=== PATIENT | male | born 1945 | race Caucasian/White ===

== ENCOUNTER → 2018-05-04 12:50 | Outpatient (CLI) | payer MEDICARE, SELFPAY ==
--- NOTE | 2018-05-04 | CI_ITS ---
Cerebrovascular Exam Indications: Follow-up carotid 433.10. 780.4 Dizziness and giddiness. IMPRESSIONS 1. The bilateral vertebral arteries are patent with normal antegrade flow. 2. Study suggests 20-49% stenosis involving the right internal carotid artery. 3. Study suggests 50-69% stenosis involving the left internal carotid artery. Carotid duplex study. Complete study and Doppler flow study including spectral analysis, color and de león scale imaging. Height: Height: 172.7cm. Height: 68in. Weight: Weight: 88kg. Weight: 193.6lb. Body mass index: BMI: 29.5kg/m^2. Body surface area: BSA: 2.08m^2. Location: Vascular laboratory. Patient status: Outpatient. Tables: Arterial flow: + +--------+--------+ Location V sys V ed + +--------+--------+ Right CCA - proximal 129cm/s 16.5cm/s + +--------+--------+ Right CCA - distal 78.6cm/s 15.7cm/s + +--------+--------+ Right ECA 148cm/s 10.2cm/s + +--------+--------+ Right ICA - proximal 113cm/s 25.9cm/s + +--------+--------+ Right ICA - mid 115cm/s 29.9cm/s + +--------+--------+ Right ICA - distal 114cm/s 29.1cm/s + +--------+--------+ Right vertebral 59.7cm/s 14.1cm/s + +--------+--------+ Left CCA - proximal 130cm/s 21.2cm/s + +--------+--------+ Left CCA - distal 88cm/s 18.1cm/s + +--------+--------+ Left ECA 167cm/s 16.8cm/s + +--------+--------+ Left ICA - proximal 274cm/s 53.3cm/s + +--------+--------+ Left ICA - mid 297cm/s 71.6cm/s + +--------+--------+ Left ICA - distal 279cm/s 40.7cm/s + +--------+--------+ Left vertebral 53.3cm/s 12.2cm/s + +--------+--------+ Velocity ratios: + + + + + + Right, V sys Right, V ed Left, V sys Left, V ed + + + + + + Max ICA/dist CCA 1.46 1.9 3.38 3.96 + + + + + + (Report amended ) Electronically signed by: Tejinder Lamb [id number]
== END ==
PROVIDERS: PCP Family Medicine; Visit Provider Family Medicine
DX: R42 Dizziness and giddiness (principal)
CPT/HCPCS: 93880

== ENCOUNTER → 2018-05-28 08:08 | Outpatient (POV) | payer MEDICARE, SELFPAY | PROVIDERS: Visit Provider Specialist | DX: G56.02 Carpal tunnel syndrome, left upper limb (principal) | CPT/HCPCS: 95886; 95908 ==

== ENCOUNTER → 2018-06-02 08:21 | Outpatient (CLI) | payer MEDICARE, SELFPAY ==
[2018-06-02 08:39] LABS: Blood Urea Nitrogen 16 mg/dL (7-18); Creatinine,Serum 1.17 mg/dL (0.70-1.30); Estimated Glomerular Filt Rate 61 ml/min (>60); GFR (African American) 74 ML/MIN (>60)
--- NOTE | 2018-06-02 09:03 | MR_ITS ---
. MR head/brain wo/w con Ordering Physician: Natalie Yates MD Patient Age: 72 years: Male HISTORY: ITS.REASON: IMBALANCE Imbalance issues one month when patient stands out or is been seen down for a while he will tend to be unbalanced. TECHNIQUE: MR brain with without contrast Precontrast Multiplanar FLAIR, T1, T2 weighted images along with axial diffusion/ADC imaging performed on 1.5 T. Siemens, MRI. Postcontrast imaging [id number] ProHance T1-weighted images axial & coronal plane performed COMPARISON : FINDINGS No mass lesion. No abnormal areas of enhancement. Normal anatomy. Mild cerebral atrophy compatible with age. Cranial cervical junction normal. Sella appears satisfactory. Diffusion images reveal no focal ischemia or infarct. But there is no evidence of territorial infarct. No mass lesion or mass effect. Normal cranial cervical junction. Sella normal. Ventricles and basal cisterns normal. Today's overview survey images of the region of the region of [place] & suprasellar region unremarkable Small dot of T2 signal focus at the left central linda most compatible with a prominent perivascular space. No associated gliosis to support a small vessel deep white matter ischemic focus. Would note slight relative low-density a globus pallidus bilaterally noted and most likely is reflection of aging change although can be seen with a various conditionsIncluding such things as Parkinson's.. The visualized paranasal sinuses are clear. The mastoid air cells clear. IACs cranial nerve VII and VIII unremarkable. Cerebellum unremarkable. IMPRESSION.......................... Basically negative MR brain for age. No significant findings. No acute findings No mass lesion. Nor mass effect . No recent infarct or ischemia No territorial infarct nor significant deep white ischemic gliotic changes Subtle slight low T2 signal at the globus pallidus most likely reflecting aging changes
== END ==
PROVIDERS: Visit Provider Family Medicine
DX: R26.89 Other abnormalities of gait and mobility (principal)
CPT/HCPCS: 36415; 70553; 82565; 84520; A9576

== ENCOUNTER → 2018-10-19 15:13 | Outpatient (CLI) | payer MEDICARE, SELFPAY ==
--- NOTE | 2018-10-19 15:17 | CT_ITS ---
CT lung screening EXAM: CT LUNG LOW DOSE WO CONTRAST HISTORY: 60 pack-year smoking history, asymptomatic for lung cancer ITS.REASON: H/O NICOTINE DEPENDENCE ORDERING PHYSICIAN: Natalie Yates MD PATIENT AGE: 73 years COMPARISON: None TECHNIQUE: The exam was performed on a GE Light Speed [address] scanner using 2.90 mGy CTDI. A low dose helical CT CHEST was performed on a multi-detector scanner. All CT scans at the facility use one or more dose reduction, viz: automated exposure control, ma/kV adjustment per patient size (including targeted exams where dose is matched to indication, i.e. head), or iterative reconstruction technique. The LDCT was performed in a facility that meets the criteria for the screening program. Data regarding this exam was submitted to ACR which is an approved registry. The order for this exam indicates that it came as a result of a lung cancer screening counseling shard decision-making visit that included all the elements required of such a visit including smoking cessation. The radiologist interpreting this exam meets the CMS criteria for the LDCT lung cancer screening program. The exam is reported using the Lung-RADS classification scale and reported to the ACR registry. NOTE: This study was performed for the specific purposes of lung cancer screening and is not an alternative to diagnostic chest CT. RADIATION DOSE: CTDI vol(CT dose Index-volume) = 2.90mG DLP (Dose Length Product) = 104.46 mGcm FINDINGS: COPD There is a 5 x 5 mm noncalcified nodule in the superior segment of left lower lobe, image #28. Mild fibrotic changes present in the left lower lobe medially. A linear 7 x 5 mm opacity is present in the right lung base posteriorly. No central obstructing lesion. Prominent coronary artery calcification noted. Degenerative change thoracic spine. IMPRESSION: 1. Lung RADS Category: 3, probably benign 2. Other findings: COPD, coronary artery calcification RECOMMENDATIONS: [address] follow-up regarding the left lower lobe and right lower lobe nodules
== END ==
PROVIDERS: PCP Family Medicine; Visit Provider Family Medicine
DX: Z12.2 Encounter for screening for malignant neoplasm of respiratory organs (principal); Z87.891 Personal history of nicotine dependence

== ENCOUNTER → 2018-11-12 07:33 | Outpatient (CLI) | payer MEDICARE, SELFPAY ==
--- NOTE | 2018-11-12 07:40 | NM_ITS ---
CARDIOLITE SPECT MYOCARDIAL PERFUSION [facility], REST AND STRESS: History: Hyperlipidemia, tobacco use, coronary artery disease Procedure: Patient exercised on Timothy protocol 8 minutes, resting heart rate was 64 bpm resting blood pressure 163/76, with exercise maximum heart rate achieved was 116 bpm reportedly 80% of the maximum predicted heart rate and a blood pressure was 205/66. Test was started due to shortness of breath patient denied any complained of chest pain. Patient has good exercise capacity achieved 10.1mets of workload on treadmill, the blood pressure response to exercise was hypertensive. Patient did not achieve the target heart rate Electrocardiogram: Resting electrocardiogram showed sinus rhythm nonspecific ST-T changes, with exercise there is 1.[address] segment depression noted from the baseline EKG. The EKG portion of the exercise Myoview is positive for ischemia. Cardiac stress and resting SPECT images: Cardiac stress and resting SPECT images were obtained using technetium 99 Myoview 30.9 mCi stress and 10.5 mCi at rest. Gated SPECT further analysis of segmental wall motion and admission of the ejection fraction also done. Cardiac stress and resting SPECT images show decreased tracer activity in the anteroseptal and apical area which improves on the resting images suggestive of reversible ischemia. Computer derived ejection fraction is 62% with no regional wall motion abnormality, right ventricle is normal size and contractility. Conclusion: 1. The EKG portion of the exercise Myoview is positive for ischemia, patient has good exercise capacity achieved 10.1mets of workload on treadmill, the blood pressure response to exercise was hypertensive, there was no exercise-induced chest discomfort, test was stopped due to shortness of breath. 2. Scintigraphic evidence of mild reversible anteroseptal and apical wall. Computer derived ejection fraction is 62% with no regional wall motion abnormality, right ventricle is normal size and contractility. 3. Abnormal exercise Myoview study.
--- NOTE | 2018-11-12 10:47 | HMH.ITSHM ---
Current Home Medications as stated by this patient Eliezer Gilliam or service representative. []zetia xarelto
== END ==
PROVIDERS: PCP Family Medicine; Visit Provider Family Medicine
DX: I25.10 Atherosclerotic heart disease of native coronary artery without angina pectoris (principal); R93.1 Abnormal findings on diagnostic imaging of heart and coronary circulation
CPT/HCPCS: 78452; 93017; A9502

== ENCOUNTER 2018-11-19 12:07 | Observation (INO) ==
--- NOTE | 2018-11-19 12:19 | Emergency Department Note ---
ED Disposition Clinical Impression: Rapid atrial fibrillation, Abnormal stress ECG Disposition: Admitted as Observation Condition on Discharge: Fair - Critical Care Critical Care Time: Yes Attestation: On , the high probability of a clinically significant, sudden or life threatening deterioration of the following system(s) required my full and direct attention, intervention and personal management. The time I documented below is in addition to time spent performing reported procedures but includes the following listed in this critical care notation. Total Critical Care Time: 30 Vital system(s) involved:: Circulatory Failure My critical care processes included: Assessment & monitoring of V/S, Initial and Re-exams, Data Review/Interpretation, Coordinating Care, Medication Orders and management, Documentation Medical Decision Making - Zi Inquiry Pt receiving controlled substance: No Vital Signs: 11/19/18 12:14 11/19/18 12:39 11/19/18 13:11 Temperature 97.9 F Temperature Source Oral Pulse Rate [Apical] 140 H 148 H 142 H Pulse Rate [Right Brachial] 151 H Respiratory Rate 20 18 18 Blood Pressure [Right Arm] 94/64 L 93/61 L 113/72 Blood Pressure Mean [Right Arm] 74 71 85 Blood Pressure Source [Right Arm] Manual Cuff/ Auscultation Automatic Cuff Automatic Cuff Blood Pressure Position [Right Arm] Sitting Sitting Sitting 02 Sat by Pulse Oximetry 93 L 95 93 L Oxygen Delivery Method Room Air Room Air Room Air 11/19/18 13:30 Temperature Temperature Source Pulse Rate [Apical] Pulse Rate [Right Brachial] 118 H Respiratory Rate Blood Pressure [Right Arm] 103/56 L Blood Pressure Mean [Right Arm] 71 Blood Pressure Source [Right Arm] Blood Pressure Position [Right Arm] 02 Sat by Pulse Oximetry 94 L Oxygen Delivery Method - Lab Data Lab Results 11/19/18 12:15: WBC 11.3 H, RBC 4.90, Hgb 14.4, Hct 45.4, MCV 92.6, MCH 29.3, MCHC 31.6 L, RDW 12.8, Plt Count 295, MPV 7.6, Neut % (Auto) 73.0, Lymph % (Auto) 18.7, [place] % (Auto) 7.2, Eos % (Auto) 0.6, Baso % (Auto) 0.4, Neut # (Auto) 8.3 H, Lymph # (Auto) 2.1, [place] # (Auto) 0.8, Eos # (Auto) 0.1, Baso # (Auto) 0.0 11/19/18 12:15: Sodium 139, Potassium 4.1, Chloride 105, Carbon Dioxide 28, Anion Gap 10.1, BUN 16, Creatinine 1.72 H, Estimated Creat Clear 44, Estimated GFR 39 L, Est GFR ( Amer) 47 L, Glucose 100, Calcium 9.1, Troponin I < 0.02 Result diagrams: 11/19/18 12:15 11/19/18 12:15 Orders (Tests/Meds): ED MEDICATIONS Generic Name Dose Route Start Last Admin Trade Name Freq PRN Reason Stop Dose Admin Diphenhydramine HCl 50 mg 11/19/18 13:56 Benadryl 50mg/1ml Vial IV 11/19/18 13:57 ONCE ONE Fentanyl Citrate 25 mcg 11/19/18 13:56 Fentanyl 250mcg/5ml Vial IV 11/20/18 13:23 Q3MINP PRN Moderate to Severe Pain Fentanyl Citrate 50 mcg 11/19/18 13:56 Fentanyl 250mcg/5ml Vial IV 11/20/18 13:23 Q3MINP PRN Moderate to Severe Pain Fentanyl Citrate 25 mcg 11/19/18 13:56 Fentanyl 100mcg/2ml Vial IV 11/20/18 13:42 Q3MINP PRN Moderate to Severe Pain Fentanyl Citrate 50 mcg 11/19/18 13:56 Fentanyl 100mcg/2ml Vial IV 11/20/18 13:42 Q3MINP PRN Moderate to Severe Pain Flumazenil 0.2 mg 11/19/18 13:56 Romazicon 0.1mg/Ml 5ml Vial IV 11/19/18 23:00 NEEDED PRN Sedation Heparin Sodium (Porcine) 10,000 unit 11/19/18 13:56 Heparin 1,000 Units/Ml 10ml Vial (Hot Stick Worker) IV 11/19/18 17:42 NEEDED PRN Emergency Box Registered Nurse Maternity Heparin Sodium/Sodium Chloride 3,000 unit 11/19/18 13:56 Heparin 1000 Units/500ml Ns (Hot Stick Worker) IV 11/19/18 13:57 ONCE ONE Sodium Chloride 1,000 mls @ 25 mls/hr 11/19/18 13:56 Sod Chlor 0.9% 1000ml Bag IV 11/20/18 13:42 .Q25H YANETH Diltiazem HCl 100 mg/ Sodium 100 mls @ 5 mls/hr 11/19/18 13:56 Chloride IV 12/19/18 12:59 .Q20H [facility] Protocol Lidocaine HCl 20 ml 11/19/18 13:56 Lidocaine 1% 20ml Mdv IJ 11/19/18 13:57 ONCE ONE Midazolam HCl 1 mg 11/19/18 13:56 Midazolam 2mg/2ml Vial IV 11/20/18 13:23 Q3MINP PRN Sedation Midazolam HCl 1 mg 11/19/18 13:56 Midazolam 1mg/Ml 5ml Vial IV 11/20/18 13:23 Q3MINP PRN Sedation Naloxone HCl 0.4 mg 11/19/18 13:56 Narcan 0.4mg/Ml Vial IV 11/20/18 13:23 Q5MINP PRN Decreased Respirations Nitroglycerin 800 mcg 11/19/18 13:56 Nitroglycerin 800mcg/8ml Syr (Hot Stick Worker) IV 11/20/18 13:42 NEEDED PRN Emergency Box Registered Nurse Maternity Sodium Chloride 10 ml 11/19/18 13:56 Saline Flush 10ml Syringe IV 12/19/18 13:41 NEEDED PRN Maintain IV Site Verapamil HCl 2.5 mg 11/19/18 13:56 Verapamil 2.5mg/Ml 2ml Vial IV 11/19/18 13:57 ONCE ONE Discontinued Medications Generic Name Dose Route Start Last Admin Trade Name Freq PRN Reason Stop Dose Admin Diphenhydramine HCl 50 mg 11/19/18 13:42 Benadryl 50mg/1ml Vial IV 11/19/18 13:43 ONCE ONE Fentanyl Citrate 25 mcg 11/19/18 13:23 Fentanyl 250mcg/5ml Vial IV 11/20/18 13:23 Q3MINP PRN Moderate to Severe Pain Fentanyl Citrate 50 mcg 11/19/18 13:23 Fentanyl 250mcg/5ml Vial IV 11/20/18 13:23 Q3MINP PRN Moderate to Severe Pain Fentanyl Citrate 50 mcg 11/19/18 13:42 Fentanyl 100mcg/2ml Vial IV 11/20/18 13:42 Q3MINP PRN Moderate to Severe Pain Fentanyl Citrate 25 mcg 11/19/18 13:42 Fentanyl 100mcg/2ml Vial IV 11/20/18 13:42 Q3MINP PRN Moderate to Severe Pain Flumazenil 0.2 mg 11/19/18 13:23 Romazicon 0.1mg/Ml 5ml Vial IV 11/19/18 23:00 NEEDED PRN Sedation Heparin Sodium (Porcine) 10,000 unit 11/19/18 13:42 Heparin 1,000 Units/Ml 10ml Vial (Hot Stick Worker) IV 11/19/18 17:42 NEEDED PRN Emergency Box Registered Nurse Maternity Heparin Sodium/Sodium Chloride 3,000 unit 11/19/18 13:42 Heparin 1000 Units/500ml Ns (Hot Stick Worker) IV 11/19/18 13:43 ONCE ONE Sodium Chloride 1,000 mls @ 999 mls/hr 11/19/18 13:00 11/19/18 12:18 Sod Chlor 0.9% 1000ml Bag IV 11/19/18 14:00 999 mls/hr .Q1H1M YANETH Administration Diltiazem HCl 100 mg/ Sodium 100 mls @ 5 mls/hr 11/19/18 13:00 11/19/18 13:00 Chloride IV 12/19/18 12:59 5 mls/hr .Q20H YANETH Administration Protocol Sodium Chloride 1,000 mls @ 25 mls/hr 11/19/18 13:45 Sod Chlor 0.9% 1000ml Bag IV 11/20/18 13:42 .Q25H YANETH Lidocaine HCl 20 ml 11/19/18 13:42 Lidocaine 1% 20ml Mdv IJ 11/19/18 13:43 ONCE ONE Midazolam HCl 1 mg 11/19/18 13:23 Midazolam 2mg/2ml Vial IV 11/20/18 13:23 Q3MINP PRN Sedation Midazolam HCl 1 mg 11/19/18 13:23 Midazolam 1mg/Ml 5ml Vial IV 11/20/18 13:23 Q3MINP PRN Sedation Naloxone HCl 0.4 mg 11/19/18 13:23 Narcan 0.4mg/Ml Vial IV 11/20/18 13:23 Q5MINP PRN Decreased Respirations Nitroglycerin 800 mcg 11/19/18 13:42 Nitroglycerin 800mcg/8ml Syr (Hot Stick Worker) IV 11/20/18 13:42 NEEDED PRN Emergency Box Registered Nurse Maternity Sodium Chloride 1,000 ml 11/19/18 12:50 11/19/18 13:00 Sod Chlor 0.9% 1000ml Bag IV 11/19/18 12:51 1,000 ml BOLUS ONE Administration Sodium Chloride 10 ml 11/19/18 13:42 Saline Flush 10ml Syringe IV 12/19/18 13:41 NEEDED PRN Maintain IV Site Verapamil HCl 2.5 mg 11/19/18 13:42 Verapamil 2.5mg/Ml 2ml Vial IV 11/19/18 13:43 ONCE ONE ORDERS Category Date Time Status Thyroid Panel Stat Lab 11/19/18 12:15 Received - Radiology Data #1 Image(s): Chest Image Reviewed: Yes I have reviewed radiologist's interpretation IMPRESSION: Possible infiltrate in the right infrahilar region with COPD Dictated By: Tejinder Lamb MD Signed By: <Electronically signed by Tejinder Lamb MD in [place]> 11/19/18 1300 - ECG Data Tracing #1 EKG interpreted by Alvino Roblero MD: Rhythm: Atrial fibrillation with rapid ventricular response Rate: 139 [place]: normal Ectopy: none Conduction: normal ST Segment Changes: Nonspecific T Wave Changes: none Q Waves: none Poor R wave progression - Physician Consults Physician Consulted: ADRIANA Delong, for Dr. Duke Time: 12:51 Reason -: Cardiology Eval/Care Comment/Response: Patient's blood pressure currently 96 systolic after 1 L. Recommends second liter of saline, Cardizem drip without a bolus. Additional Consult: [place] Time: 13:25 Reason -: Admission Comment/Response: Agrees to admit the patient to the hospital. We discussed the patient's clinical information, including history, exam, laboratory and radiology results and ED course. Per hospital procedure, I will write temporary bridge inpatient orders on the patient. Specific orders requested by the admitting physician: Per cardiology Medical Decision Narrative: Seen by Ashwin and Dr. Bailey in the emergency department. The patient will have a heart cath today and they recommend admission overnight. Dr. Yates contacted. Prior Stress: Conclusion: 1. The EKG portion of the exercise Myoview is positive for ischemia, patient has good exercise capacity achieved 10.1mets of workload on treadmill, the blood pressure response to exercise was hypertensive, there was no exercise-induced chest discomfort, test was stopped due to shortness of breath. 2. Scintigraphic evidence of mild reversible anteroseptal and apical wall. Computer derived ejection fraction is 62% with no regional wall motion abnormality, right ventricle is normal size and contractility. 3. Abnormal exercise Myoview study. Dictated By: Marek Bailey MD Signed By: <Electronically signed by Marek Bailey MD in [place]> 11/12/[address] chest: IMPRESSION: 1. Lung RADS Category: 3, probably benign 2. 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 aBiley for an abnormal stress test. He was found to be in rapid atrial fibrillation with low blood pressure and was sent to the emergency department. He says that today he feels lightheaded, a little short of breath, but otherwise feels good. No chest pain, palpitations, syncope, nausea, diaphoresis. He says that he had a stress test performed because a CAT scan of the lungs showed some coronary artery calcification. He was not having any symptoms. He does not have a history of atrial fibrillation or any other cardiac disease. He does have hyperlipidemia. He is a non-smoker. No history of thyroid disorder. Nondrinker. - Related Data Home Medications Medication Instructions Recorded Confirmed ezetimibe 10 mg tablet 10 mg PO DAILY 11/09/18 11/19/18 simvastatin 10 mg tablet 10 mg PO QHS 11/09/18 11/19/18 cholecalciferol (vitamin D3) 1,000 1,000 unit PO DAILY 11/19/18 11/19/18 unit capsule vitamin B complex tablet 1 tab PO DAILY 11/19/18 11/19/18 Allergies Allergy/AdvReac Type Severity Reaction Status Date / Time No Known Allergies Allergy Verified 11/19/18 11:49 [facility] History - Hepatitis A Screen Attestation statement:: This patient has been screened for Hepatitis A risk factors. I have reviewed the patient's past medical history: Yes Medical History: Reports:: Hiatal Hernia, Hyperlipidemia, Hypertension Other Surgeries: Yes: Cholecystectomy, Hernia Repair - Social History Smoking Status: Current every day smoker Tobacco Type: cigarettes # Packs/Day (cigarettes): 1 #Yrs smoked (if former smoker): 60 Alcohol Intake: current Alcohol Intake Frequency:: holidays/special occasions only Substance Use Type: denies use Occupational Status: retired Family Hx:: Coronary Artery Disease Comment: [id number]-CHF@83 ROS Obtained: Yes All systems reviewed & no additional complaints - Constitutional Constitutional: Denies fever(s) - Cardiovascular Cardiovascular: Denies chest pain, Denies diaphoresis, Denies palpitations - Respiratory Respiratory: Yes dyspnea - Gastrointestinal Gastrointestingal: Denies: abdominal pain, nausea, vomiting Physical Exam - General General appearance: alert, in no apparent distress - Head Head exam: atraumatic, normocephalic - Eye Eye exam: Present: normal appearance, PERRL, EOMI - ENT ENT exam: Present: mucous membranes moist - Neck Neck exam: Present: normal inspection, trachea midline - Chest Chest inspection: Present: normal inspection, symmetric chest wall rise - Respiratory Respiratory exam: Present: normal lung sounds bilaterally. Absent: respiratory distress - Cardiovascular Cardiovascular exam: Present: tachycardia, irregular rhythm, normal heart sounds - Abdominal Exam Abdominal exam: Present: soft, normal bowel sounds. Absent: distention, tenderness, guarding, rebound, rigidity - Extremities Exam Extremities exam: Present: normal inspection, full ROM - Neurological Exam Neurological exam: Present: alert, oriented X3 - Psychiatric Psychiatric exam: Present: normal affect, normal mood - Skin Skin exam: Present: warm, dry
[2018-11-19 12:31] LABS: Basophils % 0.4 % (0.1-2.0); Eosinophils # 0.1 K/mm3 (0.0-0.4); Eosinophils % 0.6 % (0.1-12.0); Hematocrit 45.4 % (42.0-52.0); Hemoglobin 14.4 g/dL (14.1-18.0); Lymphocytes # 2.1 K/mm3 (0.7-4.5); Lymphocytes % 18.7 % (10-50); Mean Corpuscular HGB Conc 31.6 g/dL (31.8-35.4); Mean Corpuscular Volume 92.6 fl (80-94); Mean Platelet Volume 7.6 fl (7.4-10.4); Monocytes # 0.8 K/mm3 (0.1-1.0); Monocytes % 7.2 % (1.7-9.3); Neutrophils # 8.3 K/mm3 (1.8-7.8); Platelet Count 295 K/mm3 (142-424); Red Cell Distribution Width 12.8 % (11.5-17.5); White Blood Count 11.3 K/mm3 (4.8-10.8)
[2018-11-19 12:42] LABS: Anion Gap 10.1 mEq/L (5-15); Blood Urea Nitrogen 16 mg/dL (7-18); Calcium 9.1 mg/dL (8.5-10.1); Carbon Dioxide 28 mmol/L (21.0-32.0); Chloride 105 mmol/L (98-107); Glucose 100 mg/dL (74-106); Sodium 139 mmol/L (136-145)
--- NOTE | 2018-11-19 13:24 | Consult Report ---
History of Present Illness Consult date: 11/19/18 Requesting physician: Natalie Yates Consult reason: atrial fibrillation, hypotension Chief complaint: light headed, SOA Additional Medical History:: 1. Tobacco use, 1 pack/day for 60+ years A. CT of the lungs, 10/2018, 1. Lung RADS Category: 3, probably benign 2. Other findings: COPD, coronary artery calcification 2. Carotid artery disease A. Carotid duplex,04/2018. 1. The bilateral vertebral arteries are patent with normal antegrade flow. 2. Study suggests 20-49% stenosis involving the right internal carotid artery. 3. Study suggests 50-69% stenosis involving the left internal carotid artery 3. Suspected coronary artery disease due to coronary artery calcification on CT of the lungs 10/2018 A. Exercise Myoview 11/2018,1. The EKG portion of the exercise Myoview is positive for ischemia, patient has good exercise capacity achieved 10.1mets of workload on treadmill, the blood pressure response to exercise was hypertensive, there was no exercise-induced chest discomfort, test was stopped due to shortness of breath. 2. Scintigraphic evidence of mild reversible anteroseptal and apical wall. Computer derived ejection fraction is 62% with no regional wall motion abnormality, right ventricle is normal size and contractility. 3. Abnormal exercise Myoview study History of present illness: 73-year-old white male with significant history of tobacco use of greater than 60 pack years with recent evaluation including CT of the lungs showed coronary artery calcification which prompted exercise Myoview stress testing. Results of which were abnormal showing anteroseptal and apical wall ischemia for which the patient was referred to cardiology for further evaluation. Patient was in the office today when an EKG revealed rapid atrial fibrillation accompanied by the patient's lightheadedness with associated systolic blood pressure of 90 mmHg. He was subsequently sent to the emergency department for further treatment. In the ER the patient was started on some IV fluids with gradual improvement in his systolic blood pressure and mild improvement in his heart rate. Patient denied any chest pain, pressure or tightness. Cardizem drip has been started at 5 mg/h which the patient is tolerating at this time. Initial troponin is normal. EKG in the office and in the ER shows evidence of anterolateral ST segment depression. The patient is not on digoxin and denies any history of heart disease previously. He denies a history of diabetes or hypertension. He does take Zetia and a statin for history of hyperlipidemia. [facility] History Medical History: Reports:: Hiatal Hernia, Hyperlipidemia, Hypertension *Have you ever received a pneumonia vaccine?: No *Have you received a flu vaccine this season?: No Other Surgeries: Yes: Cholecystectomy, Hernia Repair - *Social History Smoking Status: Current every day smoker Tobacco Type: cigarettes # Packs/Day (cigarettes): 1 #Yrs smoked (if former smoker): 60 Alcohol Intake: current Alcohol Intake Frequency:: holidays/special occasions only Substance Use Type: denies use *Occupational Status:: retired *Travel in the last 8 weeks: None - Psychiatric History Expresses thoughts of harming self/others: None Suicide Plan Description: No Plan Family Hx:: Coronary Artery Disease Meds Home Medications Medication Instructions Recorded Confirmed Type ezetimibe 10 mg tablet 10 mg PO DAILY 11/09/18 11/19/18 History simvastatin 10 mg tablet 10 mg PO QHS 11/09/18 11/19/18 History cholecalciferol (vitamin D3) 1,000 1,000 unit PO DAILY 11/19/18 11/19/18 History unit capsule vitamin B complex tablet 1 tab PO DAILY 11/19/18 11/19/18 History Allergies Allergy/AdvReac Type Severity Reaction Status Date / Time No Known Allergies Allergy Verified 11/19/18 11:49 Review of Systems - *Cardiovascular Reports shortness of breath with activity, Reports lightheadedness, Denies chest pain - *Respiratory Reports cough - *Gastrointestinal Denies abdominal pain, Denies nausea, Denies vomiting - *Genitourinary Denies blood in urine - *Musculoskeletal Denies joint pain, Denies back pain - *Neurologic Reports dizziness Exam Vital signs and Labs for Last 24 Hours: Temp Pulse Resp BP Pulse Ox 97.9 F 142 H 18 113/72 93 L 11/19/18 12:14 11/19/18 13:11 11/19/18 13:11 11/19/18 13:11 11/19/18 13:11 Laboratory Results - last 24 hr 11/19/18 12:15: WBC 11.3 H, RBC 4.90, Hgb 14.4, Hct 45.4, MCV 92.6, MCH 29.3, MCHC 31.6 L, RDW 12.8, Plt Count 295, MPV 7.6, Neut % (Auto) 73.0, Lymph % (Auto) 18.7, [place] % (Auto) 7.2, Eos % (Auto) 0.6, Baso % (Auto) 0.4, Neut # (Auto) 8.3 H, Lymph # (Auto) 2.1, [place] # (Auto) 0.8, Eos # (Auto) 0.1, Baso # (Auto) 0.0 11/19/18 12:15: Sodium 139, Potassium 4.1, Chloride 105, Carbon Dioxide 28, Anion Gap 10.1, BUN 16, Creatinine 1.72 H, Estimated Creat Clear 44, Estimated GFR 39 L, Est GFR ( Amer) 47 L, Glucose 100, Calcium 9.1, Troponin I < 0.02 I & O for Last 24 hours: Intake & Output 11/17/18 11/18/18 11/19/18 11/20/18 11:59 11:59 11:59 11:59 Weight 186 lb - *Routine HEENT Exam Head: Present: normocephalic Eye: Present: EOMI, PERRL ENT: Present: mucous membranes moist - *Routine Neck Exam Present: supple. Absent: JVD, carotid bruit - *Routine Respiratory Exam Present: rhonchi. Absent: accessory muscle use, rales, wheezes - *Routine Cardiovascular Exam Present: tachycardia, irregularly irregular. Absent: murmur, gallop, rubs - *Routine Abdominal Exam Present: soft. Absent: tenderness, distended, guarding - *Routine Extremities Exam Absent: edema, calf tenderness - *Routine Neurological Exam Present: alert, oriented X3, moving all extremities Assessment and Plan (1) Atrial fibrillation, new onset Current visit: Yes Status: Acute Category: Medical Code(s): I48.91 - Unspecified atrial fibrillation (2) Tachycardia with heart rate 141-160 beats per minute Current visit: Yes Status: Acute Category: Medical Code(s): R00.0 - Tachycardia, unspecified (3) Hypotension Current visit: Yes Status: Acute Category: Medical Code(s): I95.9 - Hypotension, unspecified (4) Hyperlipidemia Current visit: Yes Status: Acute Category: Medical Code(s): E78.5 - Hyperlipidemia, unspecified (5) Cardiovascular stress test abnormal Current visit: Yes Status: Acute Category: Medical Code(s): R94.39 - Abnormal result of other cardiovascular function study (6) Coronary artery calcification seen on CAT scan Current visit: Yes Status: Acute Category: Medical Code(s): I25.10 - Atherosclerotic heart disease of [place] coronary artery without angina pectoris (7) Tobacco use Current visit: Yes Status: Acute Category: Medical Code(s): Z72.0 - Tobacco use (8) Abnormal EKG Current visit: Yes Status: Acute Category: Medical Code(s): R94.31 - Abnormal electrocardiogram [ECG] [EKG] - Assessment and plan all Dx Assessment and Plan for all problems:: 1. In light of the patient's abnormal stress test, abnormal EKG and significant coronary artery calcification seen on recent CT of the chest, would recommend proceeding with left heart catheterization today. Risks, benefits and procedure explained to the patient and he agrees to proceed. 2. With new diagnosis of atrial fibrillation, patient will need anticoagulation therapy after cardiac catheterization performed. 3. We will obtain an echocardiogram once heart rate is sustained below 100 bpm 4. Further recommendations to follow
[2018-11-19 13:41] LABS: Thyroid Stimulating Hormone 1.86 uIU/ml (0.358-3.740)
[2018-11-19 14:05] LABS: Free Thyroxine Index 2.9 ug/dL (5.93-13.13)
--- NOTE | 2018-11-19 14:32 | History & Physical Report ---
*Admission Date: 11/19/18 *Chief complaint: light headed, SOA *History of present illness: Mr. Gilliam is a 73-year-old white male with significant history of tobacco use of greater than 60 pack years with recent evaluation including CT of the lungs showing coronary artery calcification which prompted exercise Myoview stress testing. The results of this were abnormal showing anteroseptal and apical wall ischemia for which the patient was referred to cardiology for further evaluation. The patient was in the office today when an EKG revealed rapid atrial fibrillation accompanied by the patient's lightheadedness with associated systolic blood pressure of 90 mmHg. He was subsequently sent to the emergency department for further treatment. In the ER the patient was started on some IV fluids with gradual improvement in his systolic blood pressure and mild improvement in his heart rate. Patient denied any chest pain, pressure or tightness. Cardizem drip has been started at 5 mg/h which the patient is tolerating at this time. Initial troponin is normal. EKG in the office and in the ER shows evidence of anterolateral ST segment depression. The patient is not on digoxin and denies any history of heart disease previously. He denies a history of diabetes or hypertension. He does take Zetia and a statin for history of hyperlipidemia. The above as per Ashwin Chand (cardiology). Of note, he used to take an ASA and lisinopril but this was stopped by Dr. Katz d/t low BP. [facility] History I have reviewed the patient's past medical history: Yes Medical History: Reports:: Chronic Obstructive Pulmonary Disease (COPD), Gall Bladder Disease, Hiatal Hernia, Hyperlipidemia, Hypertension *Have you ever received a pneumonia vaccine?: No *Have you received a flu vaccine this season?: No Laterality Cases: Right: Arthroscopy Shoulder, Bilateral: Cataract Other Surgeries: Yes: Cholecystectomy, Colonoscopy, Hernia Repair - *Social History Smoking Status: Current every day smoker Tobacco Type: cigarettes # Packs/Day (cigarettes): 1 #Yrs smoked (if former smoker): 60 Alcohol Intake: current Alcohol Intake Frequency:: holidays/special occasions only Substance Use Type: denies use *Occupational Status:: retired *Travel in the last 8 weeks: None - Psychiatric History Expresses thoughts of harming self/others: None Suicide Plan Description: No Plan Family Hx:: Cancer, Coronary Artery Disease, Stroke Review of Systems - Constitutional Denies chills, Denies fever(s), Denies weakness - Eyes Denies blurry vision, Denies double vision - ENT Denies nasal congestion, Denies sore throat - *Cardiovascular Denies chest pain, Denies rapid, pounding, or irregular heartbeat - *Respiratory Reports cough (slight nonproductive), Denies shortness of breath - *Gastrointestinal Denies abdominal pain, Denies loose stools, Denies nausea, Denies vomiting - *Genitourinary Denies difficulty urinating, Denies painful urination - *Musculoskeletal Denies joint pain - *Neurologic Reports dizziness, Denies headache(s) Meds Home Medications Medication Instructions Recorded Confirmed Type ezetimibe 10 mg tablet 10 mg PO DAILY 11/09/18 11/19/18 History simvastatin 10 mg tablet 10 mg PO QHS 11/09/18 11/19/18 History cholecalciferol (vitamin D3) 1,000 1,000 unit PO DAILY 11/19/18 11/19/18 History unit capsule vitamin B complex tablet 1 tab PO DAILY 11/19/18 11/19/18 History Allergies Allergy/AdvReac Type Severity Reaction Status Date / Time No Known Allergies Allergy Verified 11/19/18 11:49 Exam Vital signs and Labs for Last 24 Hours: Temp Pulse Resp BP Pulse Ox 97.9 F 118 H 18 103/56 L 94 L 11/19/18 12:14 11/19/18 13:30 11/19/18 13:11 11/19/18 13:30 11/19/18 13:30 Laboratory Results - last 24 hr 11/19/18 12:15: WBC 11.3 H, RBC 4.90, Hgb 14.4, Hct 45.4, MCV 92.6, MCH 29.3, MCHC 31.6 L, RDW 12.8, Plt Count 295, MPV 7.6, Neut % (Auto) 73.0, Lymph % (Auto) 18.7, [place] % (Auto) 7.2, Eos % (Auto) 0.6, Baso % (Auto) 0.4, Neut # (Auto) 8.3 H, Lymph # (Auto) 2.1, [place] # (Auto) 0.8, Eos # (Auto) 0.1, Baso # (Auto) 0.0 11/19/18 12:15: Sodium 139, Potassium 4.1, Chloride 105, Carbon Dioxide 28, Anion Gap 10.1, BUN 16, Creatinine 1.72 H, Estimated Creat Clear 44, Estimated GFR 39 L, Est GFR ( Amer) 47 L, Glucose 100, Calcium 9.1, Troponin I < 0.02 I & O for Last 24 hours: Intake & Output 11/17/18 11/18/18 11/19/18 11/20/18 11:59 11:59 11:59 11:59 Weight 186 lb - Constitutional no acute distress - *Routine HEENT Exam Head: Present: normocephalic Eye: Present: EOMI, PERRL ENT: Present: mucous membranes dry - *Routine Neck Exam Present: supple. Absent: lymphadenopathy - *Routine Respiratory Exam Present: CTA bilaterally - *Routine Cardiovascular Exam Present: irregularly irregular (rate 90-120 bpm) - *Routine Abdominal Exam Present: soft, normoactive bowel sounds. Absent: tenderness - *Routine Extremities Exam Absent: cyanosis, clubbing, edema - *Routine Skin Exam Present: warm. Absent: rash - *Routine Neurological Exam Present: alert, oriented X3 H&P: Result - Impressions CXR - Possible infiltrate in the right infrahilar region with COPD Assessment and Plan (1) Atrial fibrillation, new onset Current visit: Yes Status: Acute Category: Medical Code(s): I48.91 - Unspecified atrial fibrillation (2) Tachycardia with heart rate 141-160 beats per minute Current visit: Yes Status: Acute Category: Medical Code(s): R00.0 - Tachycardia, unspecified (3) Hypotension Current visit: Yes Status: Acute Category: Medical Code(s): I95.9 - Hypotension, unspecified (4) Hyperlipidemia Current visit: Yes Status: Acute Category: Medical Code(s): E78.5 - Hyperlipidemia, unspecified (5) Cardiovascular stress test abnormal Current visit: Yes Status: Acute Category: Medical Code(s): R94.39 - Abnormal result of other cardiovascular function study (6) Coronary artery calcification seen on CAT scan Current visit: Yes Status: Acute Category: Medical Code(s): I25.10 - Atherosclerotic heart disease of [place] coronary artery without angina pectoris (7) Tobacco use Current visit: Yes Status: Acute Category: Medical Code(s): Z72.0 - Tobacco use (8) Abnormal EKG Current visit: Yes Status: Acute Category: Medical Code(s): R94.31 - Abnormal electrocardiogram [ECG] [EKG] (9) Renal insufficiency Current visit: Yes Status: Acute Category: Medical Code(s): N28.9 - Disorder of kidney and ureter, unspecified (10) Leukocytosis Current visit: Yes Status: Acute Category: Medical Code(s): D72.829 - Elevated white blood cell count, unspecified - Assessment and plan all Dx Assessment and Plan for all problems:: Patient has been started on a cardizem drip and his HR has improved. He is going to have a heart cath today. CXR shows a possible pneumonia and his WBC was slightly elevated, although he has no symptoms of pneumonia. Will discuss further care with Dr. Yates.
--- NOTE | 2018-11-19 18:37 | Progress Note ---
Internal Medicine - PN: Subj *Date: 11/19/18 *Time: 18:34 Interval history: He is somewhat groggy post procedure but otherwise cogent. He is in no pain. He states that his cough and congestion had been progressive over the past several days. He had a cough productive of whitish sputum. With this history and the chest x-ray and rales on exam he warrants antibiotic treatment. Exam Vital signs and Labs for Last 24 Hours: Temp Pulse Resp BP Pulse Ox 98 F 67 16 125/68 95 11/19/18 16:40 11/19/18 16:45 11/19/18 16:40 11/19/18 16:45 11/19/18 16:45 Laboratory Results - last 24 hr 11/19/18 12:15: WBC 11.3 H, RBC 4.90, Hgb 14.4, Hct 45.4, MCV 92.6, MCH 29.3, MCHC 31.6 L, RDW 12.8, Plt Count 295, MPV 7.6, Neut % (Auto) 73.0, Lymph % (Auto) 18.7, [place] % (Auto) 7.2, Eos % (Auto) 0.6, Baso % (Auto) 0.4, Neut # (Auto) 8.3 H, Lymph # (Auto) 2.1, [place] # (Auto) 0.8, Eos # (Auto) 0.1, Baso # (Auto) 0.0 11/19/18 12:15: Sodium 139, Potassium 4.1, Chloride 105, Carbon Dioxide 28, Anion Gap 10.1, BUN 16, Creatinine 1.72 H, Estimated Creat Clear 44, Estimated GFR 39 L, Est GFR ( Amer) 47 L, Glucose 100, Calcium 9.1, Troponin I < 0.02 11/19/18 12:15: TSH 1.86, Free T4 Index 2.9 L, Thyroxine (T4) 9.1, T3 Uptake 32 11/19/18 16:22: Activated Clotting Time 337 H* I & O for Last 24 hours: Intake & Output 11/17/18 11/18/18 11/19/18 11/20/18 11:59 11:59 11:59 11:59 Intake Total 2360 / 2360 Balance 2360 / 2360 Weight 190 lb 2 oz - Constitutional no acute distress - *Routine HEENT Exam Head: Present: normocephalic Eye: Present: PERRL - *Routine Respiratory Exam Present: rales (Bibasilar but more prominent on the right than the left.) - *Routine Cardiovascular Exam Present: irregular rhythm - *Routine Abdominal Exam Present: soft. Absent: tenderness - *Routine Extremities Exam Absent: edema Assessment and Plan (1) Atrial fibrillation, new onset Current visit: Yes Status: Acute Category: Medical Code(s): I48.91 - Unspecified atrial fibrillation (2) Tachycardia with heart rate 141-160 beats per minute Current visit: Yes Status: Acute Category: Medical Code(s): R00.0 - Tachycardia, unspecified (3) Hypotension Current visit: Yes Status: Acute Category: Medical Code(s): I95.9 - Hypotension, unspecified (4) Hyperlipidemia Current visit: Yes Status: Acute Category: Medical Code(s): E78.5 - Hyperlipidemia, unspecified (5) Cardiovascular stress test abnormal Current visit: Yes Status: Acute Category: Medical Code(s): R94.39 - Abnormal result of other cardiovascular function study (6) Coronary artery calcification seen on CAT scan Current visit: Yes Status: Acute Category: Medical Code(s): I25.10 - Atherosclerotic heart disease of [place] coronary artery without angina pectoris (7) Tobacco use Current visit: Yes Status: Acute Category: Medical Code(s): Z72.0 - Tobacco use (8) Abnormal EKG Current visit: Yes Status: Acute Category: Medical Code(s): R94.31 - Abnormal electrocardiogram [ECG] [EKG] (9) Renal insufficiency Current visit: Yes Status: Acute Category: Medical Code(s): N28.9 - Disorder of kidney and ureter, unspecified (10) Leukocytosis Current visit: Yes Status: Acute Category: Medical Code(s): D72.829 - Elevated white blood cell count, unspecified (11) Pneumonia involving right lung Current visit: Yes Status: Acute Category: Medical Code(s): J18.9 - Pneumonia, unspecified organism
[2018-11-20 04:48] LABS: Anion Gap 14.2 mEq/L (5-15); Calcium 8.3 mg/dL (8.5-10.1)
[2018-11-20 04:57] LABS: Basophils % 0.3 % (0.1-2.0); Eosinophils # 0.1 K/mm3 (0.0-0.4); Eosinophils % 1.4 % (0.1-12.0); Hematocrit 40.4 % (42.0-52.0); Lymphocytes # 2.2 K/mm3 (0.7-4.5); Mean Corpuscular HGB Conc 32.1 g/dL (31.8-35.4); Mean Corpuscular Volume 92.7 fl (80-94); Mean Platelet Volume 7.7 fl (7.4-10.4); Monocytes # 0.7 K/mm3 (0.1-1.0); Monocytes % 6.8 % (1.7-9.3); Neutrophils # 6.7 K/mm3 (1.8-7.8); Neutrophils % 68.5 % (37.0-80.0); Platelet Count 236 K/mm3 (142-424); Red Blood Count 4.35 M/mm3 (4.60-6.20); White Blood Count 9.8 K/mm3 (4.8-10.8)
--- NOTE | 2018-11-20 11:25 | Progress Note ---
Internal Medicine - PN: Subj *Date: 11/20/18 *Time: 11:22 Interval history: The patient is clinically stable. He was able to get some rest overnight. He is still on a Cardizem drip and still in atrial fibrillation. His heart rate is in the 70s. His blood pressures have been running low this morning with an attempt to increase Cardizem. He states that he is coughing less and feels less congested. His white blood cell count is normal this morning. Exam Vital signs and Labs for Last 24 Hours: Temp Pulse Resp BP Pulse Ox 98.1 F 91 H 19 116/70 95 11/20/18 08:00 11/20/18 10:00 11/20/18 10:00 11/20/18 10:00 11/20/18 10:00 Laboratory Results - last 24 hr 11/19/18 12:15: WBC 11.3 H, RBC 4.90, Hgb 14.4, Hct 45.4, MCV 92.6, MCH 29.3, MCHC 31.6 L, RDW 12.8, Plt Count 295, MPV 7.6, Neut % (Auto) 73.0, Lymph % (Auto) 18.7, [place] % (Auto) 7.2, Eos % (Auto) 0.6, Baso % (Auto) 0.4, Neut # (Auto) 8.3 H, Lymph # (Auto) 2.1, [place] # (Auto) 0.8, Eos # (Auto) 0.1, Baso # (Auto) 0.0 11/19/18 12:15: Sodium 139, Potassium 4.1, Chloride 105, Carbon Dioxide 28, Anion Gap 10.1, BUN 16, Creatinine 1.72 H, Estimated Creat Clear 44, Estimated GFR 39 L, Est GFR ( Amer) 47 L, Glucose 100, Calcium 9.1, Troponin I < 0.02 11/19/18 12:15: TSH 1.86, Free T4 Index 2.9 L, Thyroxine (T4) 9.1, T3 Uptake 32 11/19/18 16:22: Activated Clotting Time 337 H* 11/20/18 04:10: WBC 9.8, RBC 4.35 L, Hgb 13.0 L, Hct 40.4 L, MCV 92.7, MCH 29.8, MCHC 32.1, RDW 13.0, Plt Count 236, MPV 7.7, Neut % (Auto) 68.5, Lymph % (Auto) 23.0, [place] % (Auto) 6.8, Eos % (Auto) 1.4, Baso % (Auto) 0.3, Neut # (Auto) 6.7, Lymph # (Auto) 2.2, [place] # (Auto) 0.7, Eos # (Auto) 0.1, Baso # (Auto) 0.0 11/20/18 04:10: Sodium 145, Potassium 4.2, Chloride 111 H, Carbon Dioxide 24, Anion Gap 14.2, BUN 15, Creatinine 1.13 D, Estimated Creat Clear 69, Estimated GFR 63, Est GFR ( Amer) 77 D, Glucose 102, Calcium 8.3 L I & O for Last 24 hours: Intake & Output 11/17/18 11/18/18 11/19/18 11/20/18 11:59 11:59 11:59 11:59 Intake Total 2813 / 2813 Output Total 1450 / 1450 Balance 1363 / 1363 Weight 192 lb 1 oz - Constitutional no acute distress Comments: Appears a bit pale. - *Routine HEENT Exam Head: Present: normocephalic Eye: Present: PERRL - *Routine Neck Exam Absent: carotid bruit - Routine Chest/Breast/Axilla Exam Chest wall: Absent: tenderness - *Routine Respiratory Exam Comments: He actually seems to be moving air better and with less bibasilar rales. There is definitely some improvement this morning. - *Routine Cardiovascular Exam Present: irregular rhythm - *Routine Abdominal Exam Present: soft. Absent: tenderness - *Routine Extremities Exam Absent: edema - *Routine Neurological Exam Present: alert, oriented X3 Assessment and Plan (1) Atrial fibrillation, new onset Current visit: Yes Status: Acute Category: Medical Code(s): I48.91 - Unspecified atrial fibrillation (2) Tachycardia with heart rate 141-160 beats per minute Current visit: Yes Status: Acute Category: Medical Code(s): R00.0 - Tachycardia, unspecified (3) Hypotension Current visit: Yes Status: Acute Category: Medical Code(s): I95.9 - Hypotension, unspecified (4) Hyperlipidemia Current visit: Yes Status: Acute Category: Medical Code(s): E78.5 - Hyperlipidemia, unspecified (5) Cardiovascular stress test abnormal Current visit: Yes Status: Acute Category: Medical Code(s): R94.39 - A bnormal result of other cardiovascular function study (6) Coronary artery calcification seen on CAT scan Current visit: Yes Status: Acute Category: Medical Code(s): I25.10 - Atherosclerotic heart disease of [place] coronary artery without angina pectoris (7) Tobacco use Current visit: Yes Status: Acute Category: Medical Code(s): Z72.0 - Tobacco use (8) Abnormal EKG Current visit: Yes Status: Acute Category: Medical Code(s): R94.31 - Abnormal electrocardiogram [ECG] [EKG] (9) Renal insufficiency Current visit: Yes Status: Acute Category: Medical Code(s): N28.9 - Disorder of kidney and ureter, unspecified (10) Leukocytosis Current visit: Yes Status: Acute Category: Medical Code(s): D72.829 - Elevated white blood cell count, unspecified (11) Pneumonia involving right lung Current visit: Yes Status: Acute Category: Medical Code(s): J18.9 - Pneumonia, unspecified organism - Assessment and plan all Dx Assessment and Plan for all problems:: We will add p.o. Cardizem. IV will be adjusted accordingly
--- NOTE | 2018-11-20 15:43 | Pharmacy Consult Notes ---
[facility] Pharmacy VTE Monitoring - Patient Demographics Admission date: 11/19/18 Report Date: 11/20/18 Time: 15:43 Allergies/Adverse Reactions: Patient Allergies No Known Allergies Allergy (Verified 11/19/18 11:49) Height: 1.73 m Weight: 87.118 kg Patient Problems: Current Active Problems (Updated 11/19/18 @ 18:38 by Natalie Yates MD) Atrial fibrillation, new onset (Acute) Tachycardia with heart rate 141-160 beats per minute (Acute) Hypotension (Acute) Hyperlipidemia (Acute) Cardiovascular stress test abnormal (Acute) Coronary artery calcification seen on CAT scan (Acute) Tobacco use (Acute) Abnormal EKG (Acute) Renal insufficiency (Acute) Leukocytosis (Acute) Pneumonia of right lower lobe due to infectious organism (Acute) Pneumonia involving right lung (Acute) - VTE Risk Labs: VTE Related Lab Results Hgb 13.0 g/dL (14.1-18.0) L 11/20/18 04:10 Hct 40.4 % (42.0-52.0) L 11/20/18 04:10 Plt Count 236 K/mm3 (142-424) 11/20/18 04:10 BUN 15 mg/dL (7-18) 11/20/18 04:10 Creatinine 1.13 mg/dL (0.70-1.30) D 11/20/18 04:10 Estimated Creat Clear 69 mL/min (50-200) 11/20/18 04:10 VTE Score: 2 VTE Risk Level: Low Risk - Prophylaxis VTE Prophylaxis Ordered?: Yes Types of VTE Prophylaxis: TEDS Knee High, Pharmacological Location of Applied Device: Bilateral Lower Extremeties Pharmacologic Type: Other (XARELTO)
--- NOTE | 2018-11-21 14:56 | Progress Note ---
Internal Medicine - PN: Subj *Date: 11/21/18 *Time: 14:54 Interval history: He is feeling okay. He rested last night. He remains in atrial fibrillation. He was switched to long-acting Cardizem this morning 120 mg. His congestion has cleared significantly though he still has bibasilar rales. Exam Vital signs and Labs for Last 24 Hours: Temp Pulse Resp BP Pulse Ox 98.7 F 69 20 109/67 L 96 11/21/18 11:44 11/21/18 14:00 11/21/18 14:08 11/21/18 14:00 11/21/18 14:08 I & O for Last 24 hours: Intake & Output 11/19/18 11/20/18 11/21/18 11/22/18 11:59 11:59 11:59 11:59 Intake Total 2813 / 2813 1199 / 1199 240 / 240 Output Total 1450 / 1450 1200 / 1200 Balance 1363 / 1363 -1 / -1 240 / 240 Weight 192 lb 1 oz 191 lb 5 oz - Constitutional no acute distress - *Routine HEENT Exam Head: Present: normocephalic Eye: Present: PERRL ENT: Present: mucous membranes moist - *Routine Respiratory Exam Present: rales (Bibasilar, otherwise good air movement) - *Routine Cardiovascular Exam Present: irregular rhythm (70s and 80s. Blood pressure remains relatively low) - *Routine Abdominal Exam Present: soft. Absent: tenderness - *Routine Extremities Exam Absent: edema - *Routine Neurological Exam Present: alert, oriented X3 Assessment and Plan (1) Atrial fibrillation, new onset Current visit: Yes Status: Acute Category: Medical Code(s): I48.91 - Unspecified atrial fibrillation (2) Tachycardia with heart rate 141-160 beats per minute Current visit: Yes Status: Acute Category: Medical Code(s): R00.0 - Tachycardia, unspecified (3) Hypotension Current visit: Yes Status: Acute Category: Medical Code(s): I95.9 - Hypotension, unspecified (4) Hyperlipidemia Current visit: Yes Status: Acute Category: Medical Code(s): E78.5 - Hyperlipidemia, unspecified (5) Cardiovascular stress test abnormal Current visit: Yes Status: Acute Category: Medical Code(s): R94.39 - Abnormal result of other cardiovascular function study (6) Coronary artery calcification seen on CAT scan Current visit: Yes Status: Acute Category: Medical Code(s): I25.10 - Atherosclerotic heart disease of [place] coronary artery without angina pectoris (7) Tobacco use Current visit: Yes Status: Acute Category: Medical Code(s): Z72.0 - Tobacco use (8) Abnormal EKG Current visit: Yes Status: Acute Category: Medical Code(s): R94.31 - Abnormal electrocardiogram [ECG] [EKG] (9) Renal insufficiency Current visit: Yes Status: Acute Category: Medical Code(s): N28.9 - Disorder of kidney and ureter, unspecified (10) Leukocytosis Current visit: Yes Status: Acute Category: Medical Code(s): D72.829 - Elevated white blood cell count, unspecified (11) Pneumonia involving right lung Current visit: Yes Status: Acute Category: Medical Code(s): J18.9 - Pneumonia, unspecified organism - Assessment and plan all Dx Assessment and Plan for all problems:: May be discharged from stepdown. We still need telemetry. Likely discharge in the morning.
[2018-11-22 06:26] LABS: Basophils % 0.5 % (0.1-2.0); Eosinophils # 0.1 K/mm3 (0.0-0.4); Eosinophils % 1.6 % (0.1-12.0); Hematocrit 39.6 % (42.0-52.0); Hemoglobin 12.8 g/dL (14.1-18.0); Lymphocytes # 2.6 K/mm3 (0.7-4.5); Lymphocytes % 31.8 % (10-50); Mean Corpuscular HGB Conc 32.3 g/dL (31.8-35.4); Mean Corpuscular Volume 92.5 fl (80-94); Mean Platelet Volume 8.2 fl (7.4-10.4); Monocytes # 0.5 K/mm3 (0.1-1.0); Monocytes % 5.9 % (1.7-9.3); Neutrophils # 4.9 K/mm3 (1.8-7.8); Neutrophils % 60.2 % (37.0-80.0); Platelet Count 238 K/mm3 (142-424); Red Blood Count 4.28 M/mm3 (4.60-6.20); Red Cell Distribution Width 12.9 % (11.5-17.5); White Blood Count 8.1 K/mm3 (4.8-10.8)
[2018-11-22 06:57] LABS: Anion Gap 11.1 mEq/L (5-15); Calcium 8.5 mg/dL (8.5-10.1)
--- NOTE | 2018-11-22 09:47 | Progress Note ---
Internal Medicine - PN: Subj *Date: 11/22/18 *Time: 09:44 Interval history: He is anxious to be discharged and states he is feeling well. He has not converted to sinus rhythm. Exam Vital signs and Labs for Last 24 Hours: Temp Pulse Resp BP Pulse Ox 98.1 F 88 18 107/69 L 93 L 11/22/18 08:00 11/22/18 08:00 11/22/18 08:00 11/22/18 08:00 11/22/18 08:00 Laboratory Results - last 24 hr 11/22/18 06:10: Sodium 143, Potassium 4.1, Chloride 110 H, Carbon Dioxide 26, Anion Gap 11.1, BUN 14, Creatinine 1.10, Estimated Creat Clear 72, Estimated GFR 65, Est GFR ( Amer) 79, Glucose 100, Calcium 8.5 11/22/18 06:10: WBC 8.1, RBC 4.28 L, Hgb 12.8 L, Hct 39.6 L, MCV 92.5, MCH 29.8, MCHC 32.3, RDW 12.9, Plt Count 238, MPV 8.2, Neut % (Auto) 60.2, Lymph % (Auto) 31.8, [place] % (Auto) 5.9, Eos % (Auto) 1.6, Baso % (Auto) 0.5, Neut # (Auto) 4.9, Lymph # (Auto) 2.6, [place] # (Auto) 0.5, Eos # (Auto) 0.1, Baso # (Auto) 0.0 I & O for Last 24 hours: Intake & Output 11/19/18 11/20/18 11/21/18 11/22/18 11:59 11:59 11:59 11:59 Intake Total 2813 / 2813 1199 / 1199 1490 / 1490 Output Total 1450 / 1450 1200 / 1200 200 / 200 Balance 1363 / 1363 -1 / -1 1290 / 1290 Weight 192 lb 1 oz 191 lb 5 oz 192 lb 3 oz - Constitutional no acute distress - *Routine HEENT Exam Head: Present: normocephalic Eye: Present: PERRL ENT: Present: mucous membranes moist - *Routine Respiratory Exam Comments: Still with some bibasilar rales, but less. - *Routine Abdominal Exam Present: soft (nontender) - *Routine Extremities Exam Present: edema (none) - *Routine Neurological Exam Present: alert, oriented X3 Assessment and Plan (1) Atrial fibrillation, new onset Current visit: Yes Status: Acute Category: Medical Code(s): I48.91 - Unspecified atrial fibrillation (2) Tachycardia with heart rate 141-160 beats per minute Current visit: Yes Status: Acute Category: Medical Code(s): R00.0 - Tachycardia, unspecified (3) Hypotension Current visit: Yes Status: Acute Category: Medical Code(s): I95.9 - Hypotension, unspecified (4) Hyperlipidemia Current visit: Yes Status: Acute Category: Medical Code(s): E78.5 - Hyperlipidemia, unspecified (5) Cardiovascular stress test abnormal Current visit: Yes Status: Acute Category: Medical Code(s): R94.39 - Abnormal result of other cardiovascular function study (6) Coronary artery calcification seen on CAT scan Current visit: Yes Status: Acute Category: Medical Code(s): I25.10 - Atherosclerotic heart disease of [place] coronary artery without angina pectoris (7) Tobacco use Current visit: Yes Status: Acute Category: Medical Code(s): Z72.0 - Tobacco use (8) Abnormal EKG Current visit: Yes Status: Acute Category: Medical Code(s): R94.31 - Abnormal electrocardiogram [ECG] [EKG] (9) Renal insufficiency Current visit: Yes Status: Acute Category: Medical Code(s): N28.9 - Disorder of kidney and ureter, unspecified (10) Leukocytosis Current visit: Yes Status: Acute Category: Medical Code(s): D72.829 - Elevated white blood cell count, unspecified (11) Pneumonia involving right lung Current visit: Yes Status: Acute Category: Medical Code(s): J18.9 - Pneumonia, unspecified organism - Assessment and plan all Dx Assessment and Plan for all problems:: See med list. Follow up 11/30 [facility], needs cardilogy follow-up as well.
--- NOTE | 2018-11-22 10:15 | Progress Note ---
Subjective Date: 11/22/18 Time: 10:12 Principal diagnosis: chest pain, SOA Interval history: 73-year-old white male in bedside chair in no acute distress. Patient is anxious to go home. States his breathing has improved as well as his cough has resolved. Exam Vital signs and Labs for Last 24 Hours: Temp Pulse Resp BP Pulse Ox 98.1 F 88 18 107/69 L 93 L 11/22/18 08:00 11/22/18 08:00 11/22/18 08:00 11/22/18 08:00 11/22/18 08:00 Laboratory Results - last 24 hr 11/22/18 06:10: Sodium 143, Potassium 4.1, Chloride 110 H, Carbon Dioxide 26, Anion Gap 11.1, BUN 14, Creatinine 1.10, Estimated Creat Clear 72, Estimated GFR 65, Est GFR ( Amer) 79, Glucose 100, Calcium 8.5 11/22/18 06:10: WBC 8.1, RBC 4.28 L, Hgb 12.8 L, Hct 39.6 L, MCV 92.5, MCH 29.8, MCHC 32.3, RDW 12.9, Plt Count 238, MPV 8.2, Neut % (Auto) 60.2, Lymph % (Auto) 31.8, [place] % (Auto) 5.9, Eos % (Auto) 1.6, Baso % (Auto) 0.5, Neut # (Auto) 4.9, Lymph # (Auto) 2.6, [place] # (Auto) 0.5, Eos # (Auto) 0.1, Baso # (Auto) 0.0 I & O for Last 24 hours: Intake & Output 11/19/18 11/20/18 11/21/18 11/22/18 11:59 11:59 11:59 11:59 Intake Total 2813 / 2813 1199 / 1199 1490 / 1490 Output Total 1450 / 1450 1200 / 1200 200 / 200 Balance 1363 / 1363 -1 / -1 1290 / 1290 Weight 192 lb 1 oz 191 lb 5 oz 192 lb 3 oz - *Routine HEENT Exam Head: Present: normocephalic Eye: Present: EOMI, PERRL ENT: Present: mucous membranes moist - *Routine Respiratory Exam Present: CTA bilaterally. Absent: accessory muscle use, rales, rhonchi, wheezes - *Routine Cardiovascular Exam Present: RRR. Absent: murmur, gallop, rubs - *Routine Extremities Exam Absent: edema, calf tenderness - *Routine Neurological Exam Present: alert, oriented X3, moving all extremities Progress Note: A&P (1) Atrial fibrillation, new onset Status: Acute Current Visit: Yes (2) Tachycardia with heart rate 141-160 beats per minute Status: Acute Current Visit: Yes (3) Hypotension Status: Acute Current Visit: Yes (4) Hyperlipidemia Status: Acute Current Visit: Yes (5) Cardiovascular stress test abnormal Status: Acute Current Visit: Yes (6) Coronary artery calcification seen on CAT scan Status: Acute Current Visit: Yes (7) Tobacco use Status: Acute Current Visit: Yes (8) Abnormal EKG Status: Acute Current Visit: Yes (9) Renal insufficiency Status: Acute Current Visit: Yes (10) Leukocytosis Status: Acute Current Visit: Yes (11) Pneumonia involving right lung Status: Acute Current Visit: Yes Assessment and Plan for All Diagnoses:: 1. Patient remains in atrial fibrillation with controlled rate on both bisoprolol and Cardizem. He is on Xarelto therapy for anticoagulation. If patient remains in atrial fibrillation after 1 month of anticoagulation then consider cardioversion. 2. Coronary artery disease status post LAD stent. Patient is on both aspirin 81 mg daily and Plavix 75 mg daily. He will need to be on triple anticoagulation therapy for 1 month only and then aspirin will be discontinued. 3. Antibiotics per Dr. Yates 4. Follow up with us on 11/29/2018.
--- NOTE | 2018-11-22 11:17 | Discharge Summary ---
General - General Admission date:: 11/19/18 Discharge date: 11/22/18 HPI HPI: Mr. Gilliam is a 73-year-old white male with significant history of tobacco use of greater than 60 pack years with recent evaluation including CT of the lungs showing coronary artery calcification which prompted exercise Myoview stress testing. The results of this were abnormal showing anteroseptal and apical wall ischemia for which the patient was referred to cardiology for further evaluation. The patient was in the office today when an EKG revealed rapid atrial fibrillation accompanied by the patient's lightheadedness with associated systolic blood pressure of 90 mmHg. He was subsequently sent to the emergency department for further treatment. In the ER the patient was started on some IV fluids with gradual improvement in his systolic blood pressure and mild im provement in his heart rate. Patient denied any chest pain, pressure or tightness. Cardizem drip has been started at 5 mg/h which the patient is tolerating at this time. Initial troponin is normal. EKG in the office and in the ER shows evidence of anterolateral ST segment depression. The patient is not on digoxin and denies any history of heart disease previously. He denies a history of diabetes or hypertension. He does take Zetia and a statin for history of hyperlipidemia. The above as per Ashwin Chand (cardiology). Of note, he used to take an ASA and lisinopril but this was stopped by Dr. Katz d/t low BP. Hospital Course Hospital Course: The patient's chest x-ray showed a possible infiltrate in the right infrahilar region and he did have a slightly elevated white blood cell count. The patient had had a slight cough, therefore he was covered with Rocephin. He was seen in consultation by cardiology due to his abnormal stress tests, abnormal EKG, and coronary artery calcification on chest CT, and they wanted to proceed with a left heart cath. He was started on a Cardizem drip for his atrial fib and they felt he would need to be on anticoagulation therapy after cardiac catheterization. An echo was ordered as well. The patient had his heart cath which showed severe proximal LAD disease. One stent was placed. He was started on Brilinta and aspirin. It was attempted to increase his Cardizem drip as he remained in atrial fibrillation, however his blood pressure began running low. His white blood cell normalized. He was started on p.o. Cardizem. He remained in atrial fibrillation and was switched to long-acting PO Cardizem. He was stable to be moved out of stepdown but remained on telemetry. The patient was anxious to go home. His breathing improved and his cough resolved. He remained in atrial fibrillation but his rate was well controlled on bisoprolol and Cardizem. He was started on Xarelto for anticoagulation. Cardiology felt if he remained in atrial fibrillation after 1 month of anticoagulation, they would consider cardioversion. The patient was started on both aspirin and Plavix status post stent placement. Cardiolog felt he would need to remain on triple anticoagulation therapy for 1 month and only then could aspirin be discontinued. He was stable to be discharged home on medications as per cardiology as well as cefdinir to cover the pneumonia. Objective Vital signs: Temp Pulse Resp BP Pulse Ox 98.1 F 88 18 107/69 L 93 L 11/22/18 08:00 11/22/18 08:00 11/22/18 08:00 11/22/18 08:00 11/22/18 08:00 Narrative: - Constitutional no acute distress - *Routine HEENT Exam Head: Present: normocephalic Eye: Present: EOMI, PERRL ENT: Present: mucous membranes dry - *Routine Neck Exam Present: supple. Absent: lymphadenopathy - *Routine Respiratory Exam Present: CTA bilaterally - *Routine Cardiovascular Exam Present: irregularly irregular (rate 90-120 bpm) - *Routine Abdominal Exam Present: soft, normoactive bowel sounds. Absent: tenderness - *Routine Extremities Exam Absent: cyanosis, clubbing, edema - *Routine Skin Exam Present: warm. Absent: rash - *Routine Neurological Exam Present: alert, oriented X3 Results Labs on day of discharge: Labs from last 24 hours 11/22/18 11/22/18 06:10 06:10 WBC 8.1 RBC 4.28 L Hgb 12.8 L Hct 39.6 L MCV 92.5 MCH 29.8 MCHC 32.3 RDW 12.9 Plt Count 238 MPV 8.2 Neut % (Auto) 60.2 Lymph % (Auto) 31.8 [place] % (Auto) 5.9 Eos % (Auto) 1.6 Baso % (Auto) 0.5 Neut # (Auto) 4.9 Lymph # (Auto) 2.6 [place] # (Auto) 0.5 Eos # (Auto) 0.1 Baso # (Auto) 0.0 Sodium 143 Potassium 4.1 Chloride 110 H Carbon Dioxide 26 Anion Gap 11.1 BUN 14 Creatinine 1.10 Estimated Creat Clear 72 Estimated GFR 65 Est GFR ( Amer) 79 Glucose 100 Calcium 8.5 DS: Diagnosis - Discharge Diagnosis (1) Atrial fibrillation, new onset Status: Acute (2) Tachycardia with heart rate 141-160 beats per minute Status: Acute (3) Hypotension Status: Acute (4) Hyperlipidemia Status: Acute (5) Cardiovascular stress test abnormal Status: Acute (6) Coronary artery calcification seen on CAT scan Status: Acute (7) Tobacco use Status: Acute (8) Abnormal EKG Status: Acute (9) Renal insufficiency Status: Acute (10) Leukocytosis Status: Acute (11) Pneumonia involving right lung Status: Acute Discharge Plan - Patient Discharge Instructions ACTIVITY: Continue current activity DIET: continue same diet Patient Instructions: Atrial Fibrillation, DI for Cardiac Catheterization, DI for Atrial Fibrillation, DI for Surgical Site Infection - Follow up Plan Follow up with: Natalie Yates MD [Primary Care Provider] - 11/30/18 Unknown provider or service follow up:: 11/22/18 09:44 Also needs Cardiology follow-up Disposition: Home, Self-Fpc Medications: Home Medications Medication Instructions Recorded Confirmed Type ezetimibe 10 mg tablet 10 mg PO DAILY 11/09/18 11/19/18 History cholecalciferol (vitamin D3) 1,000 1,000 unit PO DAILY 11/19/18 11/19/18 History unit capsule vitamin B complex tablet 1 tab PO HS 11/19/18 11/20/18 History Aspirin [Aspirin 81mg chewable 81 mg PO DAILY tab.chew 11/22/18 Rx tab] Bisoprolol Fumarate [Zebeta 5mg 5 mg PO DAILY #30 tab 11/22/18 Rx tablet] Cefdinir [Omnicef 300mg Capsule] 300 mg PO BID #14 cap 11/22/18 Rx Clopidogrel Bisulfate [Plavix 75mg 75 mg PO DAILY #30 tab 11/22/18 Rx Tab] Ramipril [Altace 5mg capsule] 5 mg PO DAILY #30 cap 11/22/18 Rx Rivaroxaban [Xarelto 15mg tablet] 15 mg PO QPMWM #30 tab 11/22/18 Rx dilTIAZem HCl [Cardizem CD 120mg 120 mg PO DAILY #30 cap.er.24h 11/22/18 Rx Cap] Prescriptions/Medication Reconciliation: New Ramipril [Altace 5mg capsule] 5 mg PO DAILY #30 cap dilTIAZem HCl [Cardizem CD 120mg Cap] 120 mg PO DAILY #30 cap.er.24h Cefdinir [Omnicef 300mg Capsule] 300 mg PO BID #14 cap Rivaroxaban [Xarelto 15mg tablet] 15 mg PO QPMWM #30 tab Bisoprolol Fumarate [Zebeta 5mg tablet] 5 mg PO DAILY #30 tab Aspirin [Aspirin 81mg chewable tab] 81 mg PO DAILY tab.chew Clopidogrel Bisulfate [Plavix 75mg Tab] 75 mg PO DAILY #30 tab Continued vitamin B complex tablet 1 tab PO HS ezetimibe 10 mg tablet 10 mg PO DAILY cholecalciferol (vitamin D3) 1,000 unit capsule 1,000 unit PO DAILY Discontinued simvastatin 10 mg tablet 10 mg PO HS
== END 2018-11-22 10:44 | disposition home or self-care (01) ==
LOC: ER 12:07 → 2ND 12:07 → CATHLAB 13:30 → 2ND 14:06
PROVIDERS: ADMIT Family Medicine; ATTEND Family Medicine
CPT/HCPCS: 36415; 71010; 71045; 80048; 82962; 84436; 84443; 84479; 84484; 85025; 85347; 92928; 93005; 93458; 96365; 96366; 96367; 99152; 99284; C1725; C1769; C1876; C9600; G0378; J1644; Q9967

== ENCOUNTER → 2018-11-29 10:30 | Outpatient (CLI) | payer MEDICARE, SELFPAY ==
[2018-11-29 11:58] LABS: Hematocrit 41.2 % (42.0-52.0); Hemoglobin 12.8 g/dL (14.1-18.0)
[2018-11-29 12:55] LABS: Blood Urea Nitrogen 16 mg/dL (7-18); Creatinine,Serum 1.22 mg/dL (0.70-1.30); Estimated Glomerular Filt Rate 58 ml/min (>60); GFR (African American) 70 ML/MIN (>60)
== END ==
PROVIDERS: Visit Provider Internal Medicine
DX: I48.91 Unspecified atrial fibrillation (principal)
CPT/HCPCS: 36415; 82565; 84520; 85014; 85018

== ENCOUNTER 2018-12-27 16:02 | Outpatient (RCR) | payer MEDICARE, SELFPAY | END 2019-05-02 13:22 | disposition home or self-care (01) | LOC: PT 16:02 | PROVIDERS: Visit Provider Family Medicine | DX: I48.2 Chronic atrial fibrillation (principal); I65.29 Occlusion and stenosis of unspecified carotid artery; I10 Essential (primary) hypertension; E78.5 Hyperlipidemia, unspecified; Z95.5 Presence of coronary angioplasty implant and graft | CPT/HCPCS: 93798 ==

== ENCOUNTER → 2019-03-23 09:16 | Outpatient (CLI) | payer MEDICARE, SELFPAY ==
[2019-03-23 10:26] LABS: Alanine Aminotransferase 15 U/L (12-78); Albumin Level 3.6 gm/dL (3.4-5.0); Alkaline Phosphatase 73 U/L (46-116); Aspartate Amino Transferase 13 U/L (15-37); Bilirubin,Direct 0.1 mg/dL (0.0-0.2); Bilirubin,Indirect 0.3 mg/dL (0.0-0.9); Bilirubin,Total 0.4 mg/dL (0.2-1.0); Chol/HDL Ratio 2.9 (1-3.5); Cholesterol 191 mg/dL (140-200); HDL Cholesterol 65 mg/dL (27-67); LDL Cholesterol 97 mg/dL (0-130); Total Protein,Serum 6.6 gm/dL (6.4-8.2); Triglycerides 146 mg/dL (30-200); VLDL Cholesterol 29 mg/dL (0-40)
== END ==
PROVIDERS: Visit Provider Physician Assistant
DX: E78.5 Hyperlipidemia, unspecified (principal); I10 Essential (primary) hypertension; I25.10 Atherosclerotic heart disease of native coronary artery without angina pectoris; I65.29 Occlusion and stenosis of unspecified carotid artery; R09.89 Other specified symptoms and signs involving the circulatory and respiratory systems; Z72.0 Tobacco use; Z79.01 Long term (current) use of anticoagulants; Z95.5 Presence of coronary angioplasty implant and graft
CPT/HCPCS: 36415; 80061; 80076

== ENCOUNTER → 2019-04-12 12:56 | Outpatient (CLI) | payer MEDICARE, SELFPAY ==
--- NOTE | 2019-04-12 12:57 | CA_ITS ---
APPROVED REPORT Clinic Charge Nurse: KULWINDER Laterality: Bilateral Study Quality: Good Indications: carotid bruit VERO Doppler Spectral Velocity Analysis dICA (R) 92.80/27.70 cm/s dICA (L) 88.60/14.40 cm/s Abe (R) 82.20/28.90 cm/s Abe (L) 85.80/24.30 cm/s pICA (R) 70.60/21.90 cm/s pICA (L) 183.10/40.50 cm/s dCCA (R) 69.30/20.10 cm/s dCCA (L) 79.70/17.10 cm/s pCCA (R) 86.00/18.60 cm/s pCCA (L) 90.40/13.90 cm/s Vert (R) 46.40/9.00 cm/s Vert (L) 48.20/12.20 cm/s ICA/CCA 1.34 ICA/CCA 2.30 Findings Duplex evaluation demonstrates stenosis of the right proximal internal carotid artery in the range of 20-49% with PSV <140 cm/sec, EDV <100 cm/sec, and IC/CC Ratio <4.0.Duplex evaluation demonstrates stenosis of the left proximal internal carotid artery in the range of 50-69% with PSV =140 cm/sec, EDV <100 cm/sec, and IC/CC Ratio <4.0.Antegrade flow seen bilateral vertebral arteries.NO SIGNIFICANT CHANGE FROM EXAM OF 05/04/2018 Conclusion Duplex evaluation demonstrates stenosis of the right proximal internal carotid artery in the range of 20-49% with PSV <140 cm/sec, EDV <100 cm/sec, and IC/CC Ratio <4.0.Duplex evaluation demonstrates stenosis of the left proximal internal carotid artery in the range of 50-69% with PSV =140 cm/sec, EDV <100 cm/sec, and IC/CC Ratio <4.0.Antegrade flow seen bilateral vertebral arteries.NO SIGNIFICANT CHANGE FROM EXAM OF 05/04/2018 Electronically signed by : Tejinder Lamb MD 04/13/2019 18:57:55
== END ==
PROVIDERS: PCP Family Medicine; Visit Provider Physician Assistant
DX: R09.89 Other specified symptoms and signs involving the circulatory and respiratory systems (principal)
CPT/HCPCS: 93880

== ENCOUNTER → 2019-04-18 11:39 | Outpatient (CLI) | payer MEDICARE, SELFPAY ==
[2019-04-18 12:15] LABS: Blood Urea Nitrogen 11 mg/dL (7-18); Creatinine,Serum 1.15 mg/dL (0.70-1.30); Estimated Glomerular Filt Rate 62 ml/min (>60); GFR (African American) 75 ML/MIN (>60)
--- NOTE | 2019-04-18 12:57 | CT_ITS ---
PROCEDURE: CT CHEST WO/W CON CLINCAL INDICATION: PULMONARY NODULES, tobacco use, abnormal LDCT follow-up Follow-up pulmonary nodules COMPARISON: LUNGSCREEN CT lung screening from 10/19/2018 TECHNIQUE: IV Contrast: 75ml Optiray 350 Axial images obtained with sagittal and coronal reformats. All CT scans at the facility use one or more dose reduction, viz: automated exposure control, ma/kV adjustment per patient size (including targeted exams where dose is matched to indication, i.e. head), or iterative reconstruction technique. FINDINGS: No mediastinal or hilar mass or adenopathy. Unenhanced images demonstrates coronary artery calcification and/or stents. No evidence of aortic aneurysm, aortic dissection, or central pulmonary embolus. Normal heart size. Linear opacity right lung base unchanged. Minimal atelectatic change left lung base. No change noncalcified 5 mm nodule superior segment left lower lobe. No new nodules evident There are degenerative changes in the thoracic spine with mild kyphosis. Degenerative changes of the sternum. Postsurgical change right shoulder. Upper abdominal images are unremarkable IMPRESSION: 1. Stable CT appearance of the chest. Benign findings. 2. Suggest resume screening LD CT in 1 year 3. Coronary artery disease. Dictated by: Tejinder Lamb MD 04/20/2019 06:22 Electronically signed by Tejinder Lamb MD in [place] 04/20/2019 06:22
== END ==
PROVIDERS: PCP Family Medicine; Visit Provider Family Medicine
DX: R91.8 Other nonspecific abnormal finding of lung field (principal)
CPT/HCPCS: 36415; 71270; 82565; 84520; Q9967

== ENCOUNTER 2019-09-16 03:45 | Emergency (ER) | payer MEDICARE, SELFPAY ==
--- NOTE | 2019-09-16 03:52 | ECG_ITS ---
APPROVED REPORT Exam: Resting ECG HR:61 bpm ECG Measurements Heart Rate 61 AXES MS 148 P 38 QRSd 92 QRS 38 QT 426 T 60 QTc 428 <Conclusion> Normal sinus rhythm Nonspecific ST and T wave abnormality Abnormal ECG Electronically signed by : Carter Frye, 09/17/2019 06:48:07
[2019-09-16 03:53] VITALS: BP 156/73; PULSE 62; RESP 19; TEMP 36.7; O2SAT 95; BMI 23.9
--- NOTE | 2019-09-16 03:55 | PC.NURSE ---
pt to room from lobby via wc. all staff wearing appropriate ppe at all times.
--- NOTE | 2019-09-16 04:03 | XR_ITS ---
PROCEDURE: XR CHEST PORTABLE CLINICAL HISTORY: complaints of shortness of air COMPARISON: CXR CHEST(2 VIEWS-NOT PORTABLE) from 08/11/2012 CXR CHEST(2 VIEWS-NOT PORTABLE) from 12/02/2014 CT CHEST WO/W CON from 04/18/2019 FINDINGS: The cardiomediastinal silhouette and pulmonary vascularity are within normal limits. The lungs are clear without infiltrates, suspicious nodules, or pleural effusions. Postsurgical and degenerative changes involve the right shoulder. IMPRESSION: No acute findings. Dictated by: Tejinder Lamb MD 09/16/2019 05:55 Electronically signed by Tejinder Lamb MD in [facility] 09/16/2019 05:55
[2019-09-16 04:29] LABS: Basophils % 0.5 % (0.1-2.0); Eosinophils # 0.2 K/mm3 (0.0-0.4); Eosinophils % 2.6 % (0.1-12.0); Hematocrit 44.1 % (42.0-52.0); Hemoglobin 14.7 g/dL (14.1-18.0); Lymphocytes # 2.5 K/mm3 (0.7-4.5); Lymphocytes % 35.7 % (10-50); Mean Corpuscular HGB Conc 33.4 g/dL (31.8-35.4); Mean Corpuscular Hemoglobin 31.3 pg (27.0-31.2); Mean Corpuscular Volume 93.9 fl (80-94); Mean Platelet Volume 7.8 fl (7.4-10.4); Monocytes # 0.4 K/mm3 (0.1-1.0); Neutrophils # 3.9 K/mm3 (1.8-7.8); Neutrophils % 55.1 % (37.0-80.0); Platelet Count 243 K/mm3 (142-424); Red Cell Distribution Width 12.6 % (11.5-17.5)
[2019-09-16 04:33] LABS: Chloride 105 mmol/L (98-107); Sodium 140 mmol/L (136-145)
[2019-09-16 04:35] LABS: Alanine Aminotransferase 25 U/L (12-78); Alkaline Phosphatase 83 U/L (38-126); Aspartate Amino Transferase 38 U/L (17-59); Bilirubin,Total 0.6 mg/dl (0.2-1.3); Blood Urea Nitrogen 12 mg/dl (9-20); Creatinine Clearance Estimated 65 mL/min (50-200); Estimated Glomerular Filt Rate 73 ml/min (>60); GFR (African American) 88 ML/MIN (>60)
[2019-09-16 04:36] LABS: Albumin Level 4.1 g/dl (3.5-5.0); Albumin/Globulin Ratio 1.5 (1.1-1.8); Calcium 9.6 mg/dl (8.4-10.2); Carbon Dioxide 30 mmol/L (22.0-30.0); Globulin 2.8 g/dL (1.3-3.2); Glucose 102 mg/dl (74-100); Total Protein,Serum 6.9 g/dl (6.3-8.2)
[2019-09-16 04:37] LABS: INR 1.09 (0.9-1.1); Prothrombin Time 11.3 seconds (9.4-11.8)
[2019-09-16 04:47] LABS: NT Pro Brain Natriuretic Pep. 228 pg/mL (0-450)
[2019-09-16 04:51] LABS: Troponin I < 0.01 ng/ml (0.00-0.034)
[2019-09-16 04:56] VITALS: BP 125/63; PULSE 51; RESP 15; O2SAT 98
[2019-09-16 04:56] LABS: Erythrocyte Sedimentation Rate 17 mm/hr (0-20)
[2019-09-16 05:00] VITALS: BP 136/68; PULSE 56; RESP 18; O2SAT 96
--- NOTE | 2019-09-16 05:05 | HMH.EDSOB ---
ED Disposition Clinical Impression: Acute dyspnea Disposition: Home, Self-Care Condition on Discharge: Good Instructions: DI for Muscle Weakness Additional Instructions: call pcp for follow up Referrals: Natalie Yates MD [Primary Care Provider] - - Critical Care Critical Care Time: No Attestation: On 09/16/19, the high probability of a clinically significant, sudden or life threatening deterioration of the following system(s) required my full and direct attention, intervention and personal management. The time I documented below is in addition to time spent performing reported procedures but includes the following listed in this critical care notation. Medical Decision Making - Medical Records Medical records reviewed: Yes: I reviewed the patient's medical records. - Zi Inquiry Pt receiving controlled substance: No Vital Signs: 09/16/19 03:53 09/16/19 04:56 09/16/19 05:00 Temperature 98.1 F Temperature Source Oral Pulse Rate [Right Brachial] 62 51 L 56 L Respiratory Rate 19 15 18 Blood Pressure [Right Arm] 156/73 H 125/63 136/68 Blood Pressure Mean [Right Arm] 100 83 90 Blood Pressure Source [Right Arm] Automatic Cuff Automatic Cuff Automatic Cuff Blood Pressure Position [Right Arm] Sitting Sitting Supine 02 Sat by Pulse Oximetry 95 98 96 Oxygen Delivery Method Room Air Nasal Cannula Room Air Oxygen Flow Rate (LPM) 1 09/16/19 06:00 09/16/19 06:56 Temperature Temperature Source Pulse Rate [Right Brachial] 62 60 Respiratory Rate 18 Blood Pressure [Right Arm] 163/88 H 147/76 H Blood Pressure Mean [Right Arm] 113 99 Blood Pressure Source [Right Arm] Automatic Cuff Blood Pressure Position [Right Arm] Supine 02 Sat by Pulse Oximetry 97 95 Oxygen Delivery Method Room Air Room Air Oxygen Flow Rate (LPM) - Lab Data Lab results reviewed: Yes: I reviewed the patient's lab results. Lab Results 09/16/19 03:58: WBC 7.0, RBC 4.70, Hgb 14.7, Hct 44.1, MCV 93.9, MCH 31.3 H, MCHC 33.4, RDW 12.6, Plt Count 243, MPV 7.8, Neut % (Auto) 55.1, Lymph % (Auto) 35.7, [place] % (Auto) 6.0, Eos % (Auto) 2.6, Baso % (Auto) 0.5, Neut # (Auto) 3.9, Lymph # (Auto) 2.5, [place] # (Auto) 0.4, Eos # (Auto) 0.2, Baso # (Auto) 0.0, ESR 17 09/16/19 03:58: Sodium 140, Potassium 4.0, Chloride 105, Carbon Dioxide 30, Anion Gap 9.0, BUN 12, Creatinine 1.00, Estimated Creat Clear 65, Estimated GFR 73, Est GFR ( Amer) 88, Glucose 102 H, Calcium 9.6, Total Bilirubin 0.6, AST 38, ALT 25, Alkaline Phosphatase 83, Troponin I < 0.01, C-Reactive Protein 2.0, Total Protein 6.9, Albumin 4.1, Globulin 2.8, Albumin/Globulin Ratio 1.5 09/16/19 03:58: PT 11.3, INR 1.09 09/16/19 03:58: NT-Pro-B Natriuret Pep 228 Result diagrams: 09/16/19 03:58 09/16/19 03:58 Orders (Tests/Meds): ED MEDICATIONS Discontinued Medications Generic Name Dose Route Start Last Admin Trade Name Freq PRN Reason Stop Dose Admin Sodium Chloride 1,000 mls @ 999 mls/hr 09/16/19 04:15 09/16/19 04:18 Sod Chlor 0.9% 1000ml Bag IV 09/16/19 05:15 999 mls/hr .Q1H1M YANETH Administration Ioversol 75 ml 09/16/19 06:11 09/16/19 06:12 Rad-Optiray 350 100ml Vial IV 09/16/19 06:12 75 ml ONCE ONE Administration Protocol Methylprednisolone Sodium Succinate 125 mg 09/16/19 04:03 09/16/19 04:18 Solu-Medrol 125mg/2ml Vial IV 09/16/19 04:04 125 mg ONCE ONE Administration Sodium Chloride 10 ml 09/16/19 06:11 09/16/19 06:12 Rad-Saline Flush 10ml Syringe IV 09/16/19 06:12 10 ml ONCE ONE Administration Sodium Chloride 50 ml 09/16/19 06:11 09/16/19 06:12 Rad-Ns 50ml Vial IV 09/16/19 06:12 50 ml ONCE ONE Administration ORDERS Category Date Time Status Troponin I Q3H Lab 09/16/19 07:45 Received Troponin I Q3H Lab 09/16/19 10:15 Ordered - Radiology Data #1 Image(s): Chest Image Reviewed: Yes I reviewed the patient's radiology image Preliminary Findings: Normal/NAD - CT Data CT
--- NOTE | 2019-09-16 05:23 | CT_ITS ---
PROCEDURE: CT ANGIO CHEST CLINCIAL INDICATION: shortness of air Shortness of breath, can't breathe, weakness COMPARISON: CT CHEST WO/W CON from 04/18/2019 TECHNIQUE: IV Contrast: 70ML OPTIRAY 350 Axial images obtained with sagittal and coronal reformats. All CT scans at the facility use one or more dose reduction, viz: automated exposure control, ma/kV adjustment per patient size (including targeted exams where dose is matched to indication, i.e. head), or iterative reconstruction technique. FINDINGS: HEART AND MEDIASTINAL STRUCTURES: No evidence of aortic aneurysm or dissection. No evidence of pulmonary embolus. There is extensive coronary artery calcification and/or stents noted. Normal heart size. No mediastinal or hilar mass or adenopathy. LUNGS AND PLEURAL SPACES: There are atelectatic changes in the lung bases. No lobar consolidation or collapse. There is an area of increased density along the posterior aspect of the right mainstem bronchus inferiorly which could be due to some mucus. A bronchial lesion is an additional consideration and follow-up is suggested. BONY STRUCTURES: There are degenerative changes in the thoracic spine with mild chronic wedge deformity T12. there postsurgical and degenerative changes of the right shoulder UPPER ABDOMEN: Unremarkable. ADDITIONAL FINDINGS: No other significant abnormalities. IMPRESSION: 1. No acute finding. No evidence of pulmonary embolus or aortic aneurysm or dissection. 2. 10 x 4 mm density along the posterior aspect of the right main stem bronchus possibly due to mucous. Suggest follow-up to exclude developing bronchial lesion. This was not present on the previous exam. 3. Coronary artery disease Dictated by: Tejinder Lamb MD 09/16/2019 06:48 Electronically signed by Tejinder Lamb MD in [place] 09/16/2019 06:48
--- NOTE | 2019-09-16 05:23 | CT_ITS ---
PROCEDURE: CT HEAD/BRAIN WO CON CLINICAL INDICATION: Weakness, evaluate for subdural hematoma rule out subdural hematoma, difficulty breathing Weakness COMPARISON: BRAINWW MR head/brain wo/w con from 06/02/2018 TECHNIQUE: Axial images obtained. All CT scans at the facility use one or more dose reduction, viz: automated exposure control, ma/kV adjustment per patient size (including targeted exams where dose is matched to indication, i.e. head), or iterative reconstruction technique. FINDINGS: No midline shift, mass effect, intracranial hemorrhage, hydrocephalus, or extra-axial fluid collection is evident. There is mild generalized atrophy the calvarium has an unremarkable appearance. No mastoid effusion. There is mild mucosal thickening of the ethmoid sinuses. IMPRESSION: No acute intracranial finding Dictated by: Tejinder Lamb MD 09/16/2019 06:28 Electronically signed by Tejinder Lamb MD in [place] 09/16/2019 06:28
--- NOTE | 2019-09-16 05:27 | CA_ITS ---
APPROVED REPORT EXAM: Comprehensive 2D, Doppler, and color-flow Echocardiogram Special Makeup Fx Artist Instructor: Sloane Chappell RT(R) Ht: 5 ft 8 in Wt: 185lbs BSA: 1.98 BP: 156/73 mmHg Indications: COPD, smoker, SOA, hx of AFIB, CAD with cardiac stent, weakness 2D Dimensions LVOT 1.97 cm (M/F) 1.5-2.5 M-Mode Dimensions RVDd 2.25 cm (0.9-2.6) LVDd 5.30 cm (3.5-5.7) LVDs 4.24 cm (3.5-5.7) IVSd 0.80 cm (0.6-1.1) PWd 0.96 cm (0.6-1.1) EF (Teich) 40.60% FS 20.00% EDV (Teich) 135.30 mL ESV (Teich) 80.40 mL LV Diastology E/A Ratio 0.83 Mitral Valve MV A Velocity 78.00 (40-130 cm/s) Left Ventricle Left atrium is mildly enlarged, left ventricle is normal size, mild concentric left ventricular hypertrophy, visually estimated ejection fraction 55% with no regional wall motion abnormality. Grade 1 diastolic dysfunction seen without tissue Doppler evidence of raise left atrial pressure. Right Ventricle Right atrium and right ventricular qualitatively mildly enlarged with normal contractility. Aortic Valve Aortic valve is grossly normal, there is no aortic stenosis or aortic insufficiency. Mitral Valve Mitral valve is grossly normal, there is mild mitral regurgitation. Tricuspid Valve Tricuspid valve is grossly normal, there is mild tricuspid regurgitation. Pulmonic Valve Pulmonic valve is poorly visualized. Great Vessels Aortic root is normal size. Pericardium No significant pericardial effusion noted. Conclusion 1. Mild biatrial enlargement, normal left ventricular size, mild concentric left ventricular hypertrophy, visually estimated ejection fraction 55% with no regional wall motion abnormality, grade 1 diastolic dysfunction seen without tissue Doppler evidence of raise left atrial pressure. 2. Mildly enlarged right ventricle with normal contractility. 3. Mild mitral and tricuspid regurgitation. 4. No significant pericardial effusion noted. Electronically signed by : Marek Bailey, 09/16/2019 11:14:25
[2019-09-16 06:00] VITALS: BP 163/88; PULSE 62; RESP 18; O2SAT 97
[2019-09-16 06:56] VITALS: BP 147/76; PULSE 60; O2SAT 95
--- NOTE | 2019-09-16 07:03 | PC.NURSE ---
This nurse performed NIH scale on pt. Pt scored a 1 at this time for a sensation loss/ tingling in her left arm. pt stated if her uneffected arm was compared to volume her right arm would be on full volume and her left arm would be described as half volume/ static
--- NOTE | 2019-09-16 07:45 | PC.NURSE ---
2nd troponin drawn and to lab for resulting. echo at bedside.
[2019-09-16 08:12] LABS: Troponin I < 0.01 ng/ml (0.00-0.034)
[2019-09-16 08:20] VITALS: BP 147/76; PULSE 60; RESP 17; TEMP 36.7; O2SAT 98
== END 2019-09-16 08:27 | disposition home or self-care (01) ==
PROVIDERS: Emergency Provider Emergency Medicine; PCP Family Medicine
DX: R06.00 Dyspnea, unspecified (principal); F41.8 Other specified anxiety disorders; I48.20 Chronic atrial fibrillation, unspecified; J44.9 Chronic obstructive pulmonary disease, unspecified; E78.5 Hyperlipidemia, unspecified; I10 Essential (primary) hypertension; F17.210 Nicotine dependence, cigarettes, uncomplicated; Z90.49 Acquired absence of other specified parts of digestive tract; Z79.899 Other long term (current) drug therapy
CPT/HCPCS: 70450; 71045; 71275; 80053; 83880; 84484; 85025; 85610; 85651; 86140; 93005; 93306; 96365; 96375; 99284; Q9967

== ENCOUNTER 2019-12-31 13:14 | Emergency (ER) | payer MEDICARE, SELFPAY ==
[2019-12-31 13:34] VITALS: BP 122/76; PULSE 61; RESP 17; TEMP 36.6; O2SAT 98; BMI 27.9
--- NOTE | 2019-12-31 13:38 | HMH.EDUTC ---
[facility] [place] Clinical Impression: Dental abscess Disposition: Home, Self-Care Condition on Discharge: Good Instructions: Tooth Abscess, Amoxicillin and Clavulanic Acid Additional Instructions: Warm compresses may help with pain and discomfort of dental abscess Over the counter Tylenol as directed on package may help with pain and fever Start antibiotics immediately and follow up with Dentist next week Return if needed Straight to ER if any life threatening symptoms Prescriptions: Amoxicillin/Potassium Clav [Augmentin 875-125 Tablet] 1 tab PO Q12H 10 Days #20 tab Transmission Status: Pending to [facility] Referrals: Natalie Yates MD [Primary Care Provider] - As needed Time of Disposition: 13:44 Medical Decision Making - Zi Inquiry Pt receiving controlled substance: No Zi was queried for this patient: No Vital Signs: 12/31/19 13:34 Temperature 97.8 F Temperature Source Oral Pulse Rate [Right Brachial] 61 Respiratory Rate 17 Blood Pressure [Right Arm] 122/76 Blood Pressure Mean [Right Arm] 91 Blood Pressure Source [Right Arm] Automatic Cuff Blood Pressure Position [Right Arm] Sitting 02 Sat by Pulse Oximetry 98 Oxygen Delivery Method Room Air [facility] [place] - General Stated complaint: abcess tooth Time Seen by Provider: 12/31/19 13:38 Mode of Arrival: Ambulatory Source of Information: Patient Limitations: No Limitations Description of Symptoms (Recalled from Triage Doc. by RN): swelling in lower jaw HEENT Symptoms (Recalled from RN notes): No Resp Symptoms (Recalled from RN notes): No Skin Symptoms (Recalled from RN notes): No MS Symptoms (Recalled from RN notes): No Functional Status (Recalled from RN notes): none - History of Present Illness Provider Complaint: Patient states that he noticed yesterday he was having some swelling in the right lower jaw area where he has some broken decaying teeth States that this morning when he woke up swelling was worse and he had a red area on his lower gum and thinks he may have a dental abscess - Related Data Home Medications Medication Instructions Recorded Confirmed ezetimibe 10 mg tablet 10 mg PO DAILY 11/09/18 12/31/19 cholecalciferol (vitamin D3) 25 1,000 unit PO DAILY 11/19/18 12/31/19 mcg (1,000 unit) capsule vitamin B complex 1 tab PO HS 11/19/18 12/31/19 Clopidogrel Bisulfate [Plavix 75mg 75 mg PO DAILY 09/16/19 12/31/19 Tab] Rivaroxaban [Xarelto 15mg tablet] 15 mg PO QPMWM 09/16/19 12/31/19 bisoproloL fumarate [Zebeta 5mg 5 mg PO DAILY 09/16/19 12/31/19 tablet] dilTIAZem HCL [Cardizem CD 120mg 120 mg PO DAILY 09/16/19 12/31/19 Cap] Previous Rx's Medication Instructions Recorded Diclofenac Sodium [Diclofenac Sod 1 applicatio TP QID PRN #1 tube 05/11/19 100gm Topical Gel] ciclopirox 8 % topical solution 1 applic TOPICAL DAILY 90 Days 07/19/19 #6.6 ml atorvastatin 10 mg tablet 10 mg PO DAILY #90 tab 09/26/19 lorazepam 0.5 mg tablet 0.5 mg PO TID PRN #90 tab 12/22/19 Amoxicillin/Potassium Clav 1 tab PO Q12H 10 Days #20 tab 12/31/19 [Augmentin 875-125 Tablet] Allergies Allergy/AdvReac Type Severity Reaction Status Date / Time No Known Allergies Allergy Verified 10/19/19 15:00 - Worker's Comp Is this a Worker's Comp case?: No [facility] History - Hepatitis A Screen Drug use history?: No High risk sexual behaviors?: No History of sexually transmitted infection?: No Currently employed?: No Childcare worker?: No Do you have indoor plumbing?: Yes Do you have electricity?: Yes Attestation statement:: This patient has been screened for Hepatitis A risk factors. I have reviewed the patient's past medical history: Yes Medical History: Reports:: Atrial Fibrillation, Carotid Stenosis, Chronic Obstructive Pulmonary Disease (COPD), Coronary Artery Disease, Gall Bladder Disease, Hiatal Hernia, Hyperlipidemia, Hypertension Denies:: Cancer, Diabetes Mellitus Type 1, Diabetes Yolanda
[2019-12-31 13:45] VITALS: BP 122/76; PULSE 61; RESP 17; TEMP 36.6; O2SAT 98
== END 2019-12-31 13:49 | disposition home or self-care (01) ==
PROVIDERS: Emergency Provider Nurse Practitioner; PCP Family Medicine
DX: K04.7 Periapical abscess without sinus (principal); I25.10 Atherosclerotic heart disease of native coronary artery without angina pectoris; J44.9 Chronic obstructive pulmonary disease, unspecified; F17.210 Nicotine dependence, cigarettes, uncomplicated; I10 Essential (primary) hypertension; I48.91 Unspecified atrial fibrillation; E78.5 Hyperlipidemia, unspecified; Z79.899 Other long term (current) drug therapy
CPT/HCPCS: 99201

== ENCOUNTER 2020-05-01 17:01 | Emergency (ER) | payer MEDICARE, SELFPAY ==
[2020-05-01 17:10] VITALS: BP 113/51; PULSE 58; RESP 20; TEMP 36.6; O2SAT 97; BMI 28.8
--- NOTE | 2020-05-01 17:25 | HMH.EDUTC ---
[facility] [place]ression: Encounter for laboratory testing for COVID-19 virus Disposition: Home, Self-Care Condition on Discharge: Good Instructions: Preventing the Spread of Coronavirus Discharge Instructions Additional Instructions: *Monitor Temp, Over the counter Motrin or Tylenol as directed/as needed Tylenol every 4 hours and Motrin every 6 hours (as long as your family doctor has told you that you can take it) for fever or pain. and straight to ER if unable to lower temp less than 101.0 after medication given *Warm salt water gargles may help to soothe the throat *Throat Lozenges *Warm fluids like tea with honey may help to soothe the throat *Sleep elevated *Humidifier/Vaporizer Follow up IMMEDIATELY for new or worsening symptoms or no Noticeable improvement over the next 48-72 hours. 911 for difficulty breathing or swallowing You was tested for today for COVID19 your test result should be back in the next 24-48 hours, you may call to the [facility] tomorrow to see if your test results are back and the result [phone] [facility] hours are 9am-9pm You was given a handout with instructions for Self Quarantine and Self isolation for while you wait on test results and what to do if they are positive If you are positive the Health Dept will be contacting you also Referrals: Natalie Yates MD [Primary Care Provider] - As needed Time of Disposition: 17:28 Medical Decision Making - Zi Inquiry Pt receiving controlled substance: No Zi was queried for this patient: No Vital Signs: 05/01/20 17:10 Temperature 98 F Temperature Source Oral Pulse Rate [Right Brachial] 58 L Respiratory Rate 20 Blood Pressure [Right Arm] 113/51 L Blood Pressure Mean [Right Arm] 71 Blood Pressure Source [Right Arm] Automatic Cuff Blood Pressure Position [Right Arm] Sitting 02 Sat by Pulse Oximetry 97 Oxygen Delivery Method Room Air Orders (Tests/Meds): ORDERS Category Date Time Status Covid-19 Nasal PCR Sendout [facility] 05/01/20 17:02 [place]dered [facility] [place] General Stated complaint: cov test Time Seen by Provider: 05/01/20 17:25 Mode of Arrival: Ambulatory Source of Information: Patient Limitations: No Limitations Description of Symptoms (Recalled from Triage Doc. by RN): PATIENT REQUESTING COVID TEST. DENIES EXPOSURE OR SYMPTOMS HEENT Symptoms (Recalled from RN notes): No Resp Symptoms (Recalled from RN notes): No Skin Symptoms (Recalled from RN notes): No MS Symptoms (Recalled from RN notes): No Functional Status (Recalled from RN notes): WNL - History of Present Illness Provider Complaint: Patient states that he is wanting to get tested for COVID States that he has not had any symptoms or known exposures but was concerned with the virus and holidays coming up and wanted to get tested to make sure that he didnt having it and traveling this weekend - Related Data Home Medications Medication Instructions Recorded Confirmed ezetimibe 10 mg tablet 10 mg PO DAILY 11/09/18 04/25/20 cholecalciferol (vitamin D3) 25 1,000 unit PO DAILY 11/19/18 04/25/20 mcg (1,000 unit) capsule vitamin B complex 1 tab PO HS 11/19/18 04/25/20 Clopidogrel Bisulfate [Plavix 75mg 75 mg PO DAILY 09/16/19 04/25/20 Tab] Rivaroxaban [Xarelto 15mg tablet] 15 mg PO QPMWM 09/16/19 04/25/20 bisoproloL fumarate [Zebeta 5mg 5 mg PO DAILY 09/16/19 04/25/20 tablet] dilTIAZem HCL [Cardizem CD 120mg 120 mg PO DAILY 09/16/19 04/25/20 Cap] Previous Rx's Medication Instructions Recorded Diclofenac Sodium [Diclofenac Sod 1 applicatio TP QID PRN #1 tube 05/11/19 100gm Topical Gel] citalopram 20 mg tablet 20 mg PO DAILY #90 tab 04/25/20 lorazepam 0.5 mg tablet 0.5 mg PO TID PRN #90 tab 04/25/20 atorvastatin 10 mg tablet 10 mg PO DAILY #90 tab 05/01/20 Allergies Allergy/AdvReac Type Severity Reaction Status Date / Time No Known Allergies Allergy Verified 04/25/20 10:21 - Worker's Comp Is this a
[2020-05-01 17:32] VITALS: BP 113/51; PULSE 58; RESP 20; TEMP 36.6; O2SAT 97
[2020-05-02 22:01] LABS: Covid-19 Nasal PCR Sendout Lex NOT DETECTED
--- NOTE | 2020-05-03 19:59 | PC.NURSE ---
pt had come into front lobby and called requesting results of his covid test.results given after verification of name and birthdate.
== END 2020-05-01 17:36 | disposition home or self-care (01) ==
PROVIDERS: Emergency Provider Nurse Practitioner; PCP Family Medicine
DX: Z20.828 Contact with and (suspected) exposure to other viral communicable diseases (principal)
CPT/HCPCS: G0463; 99201; U0004

== ENCOUNTER → 2021-01-14 09:39 | Outpatient (CLI) | payer MEDICARE, SELFPAY | PROVIDERS: PCP Family Medicine; Visit Provider Family Medicine | DX: Z20.822 Contact with and (suspected) exposure to COVID-19 (principal) | CPT/HCPCS: U0003 ==

== ENCOUNTER → 2021-02-26 08:19 | Outpatient (CLI) | payer MEDICARE, SELFPAY ==
--- NOTE | 2021-02-26 08:22 | CA_ITS ---
APPROVED REPORT Extractor Puller: Lynne Cohn RVT Laterality: Bilateral Study Quality: Good Indications: Carotid stenosis, Dizziness and Vertigo Risk Factors Hyperlipidemia Smoking Doppler Spectral Velocity Analysis ECA (R) 130.50/12.80 cm/s ECA (L) 108.00/9.60 cm/s dICA (R) 100.50/25.70 cm/s dICA (L) 94.10/12.80 cm/s Abe (R) 95.20/29.90 cm/s Abe (L) 189.30/39.60 cm/s pICA (R) 68.40/19.20 cm/s pICA (L) 170.00/40.60 cm/s dCCA (R) 53.50/12.80 cm/s dCCA (L) 59.90/11.80 cm/s pCCA (R) 77.00/11.80 cm/s pCCA (L) 84.50/12.80 cm/s Vert (R) 32.10/7.50 cm/s Vert (L) 32.20/10.50 cm/s ICA/CCA 1.88 ICA/CCA 3.16 Findings Study suggests 20-49% stenosis of the right internal cartoid artery. Study suggests 50-69% stenosis of the left internal cartoid artery. Antegrade flow seen bilateral vertebral arteries. Conclusion Study suggests 20-49% stenosis of the right internal cartoid artery. Study suggests 50-69% stenosis of the left internal cartoid artery. Antegrade flow seen bilateral vertebral arteries. Electronically signed by : Tejinder Lamb MD 02/26/2021 17:31:03
== END ==
PROVIDERS: PCP Family Medicine; Visit Provider Internal Medicine Cardiovascular Disease
DX: I65.23 Occlusion and stenosis of bilateral carotid arteries (principal)
CPT/HCPCS: 93880

== ENCOUNTER 2021-06-25 15:04 | Emergency (ER) | payer MEDICARE, SELFPAY ==
[2021-06-25 15:05] VITALS: BP 115/61; PULSE 65; RESP 18; TEMP 36.7; O2SAT 99; BMI 28.8
[2021-06-25 15:26] VITALS: BMI 28.8
--- NOTE | 2021-06-25 15:27 | XR_ITS ---
FINAL REPORT CLINICAL HISTORY: fall/pain at noon today FINDINGS: RIGHT HUMERUS Two views of the right humerus were obtained. There is severe degenerative changes of the glenohumeral joint. There are postoperative changes of the glenoid. There is a subacute proximal humeral fracture without evidence of healing. There are loose bodies in the anterior aspect of the glenohumeral joint measuring up to 33 mm. There are calcifications in the superior glenohumeral joint measuring up to 26 mm. IMPRESSION: Subacute proximal humeral fracture without evidence of healing. Chronic and degenerative changes. Reviewed, Interpreted and Dictated by Odin Vogel III, MD Transcribed by Cristy Aponte Authenticated by Odin Vogel III, MD on 06/25/2021 04:36:20 PM [facility]
--- NOTE | 2021-06-25 15:27 | XR_ITS ---
FINAL REPORT CLINICAL HISTORY: fall/pain at noon today FINDINGS: RIGHT SHOULDER 3 views of the right shoulder were obtained. There is severe degenerative changes of the glenohumeral joint. There are postoperative changes of the glenoid. There is a subacute proximal humeral fracture without evidence of healing. There are loose bodies in the anterior aspect of the glenohumeral joint measuring up to 33 mm. There are calcifications in the superior glenohumeral joint measuring up to 26 mm. IMPRESSION: Subacute proximal humeral fracture without evidence of healing. Chronic and degenerative changes. Reviewed, Interpreted and Dictated by Odin Vogel III, MD Transcribed by Cristy Aponte Authenticated by Odin Vogel III, MD on 06/25/2021 04:26:31 PM [facility]
--- NOTE | 2021-06-25 15:28 | HMH.EDGENADL ---
ED Disposition Clinical Impression: Right humeral fracture Qualifiers: Encounter type: initial encounter Humerus Location: proximal Fracture type: closed Fracture morphology: other fracture Fracture alignment: displaced Qualified Code(s): S42.291A - Other displaced fracture of upper end of right humerus, initial encounter for closed fracture Disposition: Home, Self-Care Condition on Discharge: Good Instructions: DI for Shoulder Fracture, How to Use a Shoulder Immobilizer Additional Instructions: Sling and swath or shoulder immobilizer as instructed. Ice 20 minutes 4-5 times a day to shoulder. Garrison as needed for pain. Additional instructions for FRACTURED (BROKEN) BONE: See Dr. Dennis as soon as possible for further evaluation. Return to an emergency department immediately if you have uncontrollable pain, loss of feeling or inability to move your injured extremity. Additional instructions for CONTROLLED SUBSTANCES: You have been prescribed a medication that is a controlled substance. Controlled substances include pain medications known as opiates and sedative nerve medications known as benzodiazepines. Tramadol, fioricet, and gabapentin are also controlled substances. Some common opiates include: Codeine (such as Tylenol #3) Hydrocodone (Vicodin, Lortab, Lorcet, Garrison) Oxycodone (Percocet, Percodan, Oxycodone, Oxy IR) Some common benzodiazepines include: Diazepam (Valium) Lorazepam (Ativan) Alprazolam (Xanax) Clonazepam (Klonopin) Oxazepam (Serax) All of these controlled substances are highly addictive and frequently abused. Misuse can and frequently does lead to addiction as well as overdose and . Medication should be stored in a locked cabinet or other secure storage unit. Do not store the medication in a motor vehicle. Short term supplies, 3 days or less, are prescribed because of the highly addictive nature of the medication. Any of the controlled substance medication NOT taken should be disposed of properly and NOT SAVED. The recommended method of disposing of unused medications is: Place the medicines in a sealable plastic bag. If the medicine is a solid, crush it or add water to dissolve it. Add something undesirable (cat litter, coffee grounds, etc.) Dispose of sealed bag in household trash Do not flush or pour unused medicines down a sink or drain. Controlled substances should not be shared, given away or sold. Because of the addictive nature and frequent abuse, these medications are sometimes stolen. These medications should be kept in a safe place where they cannot be stolen. Do not keep them in your car or purse. Lost or stolen prescriptions for controlled substances WILL NOT BE REFILLED in this emergency department, regardless of whether a police report was filed. Prescriptions: Hydrocod/Acet 5/325 mg [Garrison 5/325mg tablet] 1 tab PO Q6HP PRN #10 tab PRN Reason: Pain Transmission Status: Sent to [facility] Referrals: Natalie Yates MD [Primary Care Provider] - - Critical Care Critical Care Time: No Attestation: On 06/25/21, the high probability of a clinically significant, sudden or life threatening deterioration of the following system(s) required my full and direct attention, intervention and personal management. The time I documented below is in addition to time spent performing reported procedures but includes the following listed in this critical care notation. Medical Decision Making - Zi Inquiry Pt receiving controlled substance: Yes Zi was queried for this patient: Yes Risks and benefits of using a controlled substance: were discussed with pt by me Vital Signs: 06/25/21 15:05 Temperature 98.0 F Temperature Source Oral Pulse Rate [Left Radial] 65 Respiratory Rate 18 Blood Pressure [Right Arm] 115/61 Blood Pressure Mean [Right Arm] 79 Blood Pressure Source [Right Arm] Automatic Cuff Blood Pressure Position [R
[2021-06-25 16:10] VITALS: BP 115/61; PULSE 65; RESP 18; TEMP 36.7; O2SAT 99
== END 2021-06-25 16:11 | disposition home or self-care (01) ==
PROVIDERS: Emergency Provider Emergency Medicine; PCP Family Medicine
DX: S42.291A Other displaced fracture of upper end of right humerus, initial encounter for closed fracture (principal); W01.190A Fall on same level from slipping, tripping and stumbling with subsequent striking against furniture, initial encounter; Y92.009 Unspecified place in unspecified non-institutional (private) residence as the place of occurrence of the external cause; I48.91 Unspecified atrial fibrillation; J44.9 Chronic obstructive pulmonary disease, unspecified; I25.10 Atherosclerotic heart disease of native coronary artery without angina pectoris; I10 Essential (primary) hypertension; E78.5 Hyperlipidemia, unspecified
CPT/HCPCS: 73030; 73060; 99282

== ENCOUNTER → 2021-07-02 12:46 | Outpatient (CLI) | payer MEDICARE, SELFPAY ==
--- NOTE | 2021-07-02 12:52 | XR_ITS ---
FINAL REPORT CLINICAL HISTORY: right shoudler pain Fx f/u COMPARISON: June 25, 2021 FINDINGS: 3 views of the right shoulder were obtained. There is an oblique fracture through the surgical neck of the humerus. There is anterior lateral displacement of the distal fracture fragment. Displacement appears greater than previous. There are advanced hypertrophic changes of the glenohumeral joint. There are 2 orthopedic sienna in the bony glenoid. IMPRESSION: Displaced surgical neck fracture of the right humerus. Displacement appears greater than on prior exam. Reviewed, Interpreted and Dictated by Deejay Nolasco MD Transcribed by Wali Oliveros Authenticated by Deejay Nolasco MD on 07/02/2021 02:42:28 PM [facility]
== END ==
PROVIDERS: PCP Family Medicine; Visit Provider Orthopaedic Surgery
DX: M25.511 Pain in right shoulder (principal)
CPT/HCPCS: 73030

== ENCOUNTER → 2021-07-16 12:25 | Outpatient (CLI) | payer MEDICARE, SELFPAY ==
--- NOTE | 2021-07-16 12:28 | XR_ITS ---
FINAL REPORT CLINICAL HISTORY: Rt shoulder pain..FX 3 WEEKS AGO COMPARISON: 07/02/2021 FINDINGS: RIGHT SHOULDER Three views demonstrate postoperative changes of the glenoid. There is mild a.c. joint degenerative change. There is severe glenohumeral degenerative change. There is large chronic calcification medial to the humeral neck. Again identified is an oblique fracture of the proximal humeral diaphysis. There appears to be new medial displacement of the distal fracture fragment. There is no significant callus formation. IMPRESSION: Fracture of the proximal humeral diaphysis with new medial displacement of the distal fracture fragment. Reviewed, Interpreted and Dictated by Odin Vogel III, MD Transcribed by Magali Ramos Authenticated by Odin Vogel III, MD on 07/16/2021 01:50:27 PM [facility]
== END ==
PROVIDERS: PCP Family Medicine; Visit Provider Orthopaedic Surgery
DX: M25.511 Pain in right shoulder (principal)
CPT/HCPCS: 73030

== ENCOUNTER → 2021-08-07 08:54 | Outpatient (CLI) | payer MEDICARE, SELFPAY ==
--- NOTE | 2021-08-07 08:56 | XR_ITS ---
FINAL REPORT CLINICAL HISTORY: right proximal humerus fracture COMPARISON: July 16, 2021 FINDINGS: RIGHT SHOULDER: 3 views of the right shoulder were obtained. Again noted is the fracture of the proximal humeral metaphysis. Bony alignment is stable. Callus formation is present at the fracture site. There is chronic deformity of the humeral head. There is severe degenerative change of the glenohumeral joint. Postoperative changes are seen in the glenoid. IMPRESSION: Postoperative changes as above with stable bony alignment. Reviewed, Interpreted and Dictated by Odin Vogel III, MD Transcribed by Wali Oliveros Authenticated by Odin Vogel III, MD on 08/07/2021 11:08:42 AM [facility]
== END ==
PROVIDERS: PCP Family Medicine; Visit Provider Orthopaedic Surgery
DX: S42.301A Unspecified fracture of shaft of humerus, right arm, initial encounter for closed fracture (principal)
CPT/HCPCS: 73030

== ENCOUNTER → 2021-09-18 08:22 | Outpatient (CLI) | payer MEDICARE, SELFPAY ==
--- NOTE | 2021-09-18 08:30 | XR_ITS ---
FINAL REPORT CLINICAL HISTORY: rt prox humerus fx COMPARISON: August 07, 2021 FINDINGS: 3 views of the right shoulder were obtained. There is a healing fracture deformity at the proximal right humerus. This is a mildly displaced fracture at the surgical neck of the humerus. There is abundant surrounding callus formation, increased from previous. The fracture line remains visible. There are 2 orthopedic sienna in the bony glenoid. There are moderately advanced hypertrophic changes of the glenohumeral joint. IMPRESSION: Progressive healing fracture of the surgical neck of the right humerus. Reviewed, Interpreted and Dictated by Deejay Nolasco MD Transcribed by Wali Oliveros Authenticated by Deejay Nolasco MD on 09/18/2021 10:12:17 AM [facility]
== END ==
PROVIDERS: PCP Family Medicine; Visit Provider Physician Assistant Surgical
DX: S42.301A Unspecified fracture of shaft of humerus, right arm, initial encounter for closed fracture (principal)
CPT/HCPCS: 73030

== ENCOUNTER → 2021-12-18 08:28 | Outpatient (CLI) | payer MEDICARE, SELFPAY ==
--- NOTE | 2021-12-18 08:36 | XR_ITS ---
FINAL REPORT CLINICAL HISTORY: humerus fracture in June COMPARISON: 09/18/2021 FINDINGS: RIGHT HUMERUS 2 views were obtained. There is a healing, moderately displaced fracture of the surgical neck. There is abundant callus formation at the fracture margin. There are 2 orthopedic sienna securing the bony glenoid. The articular surface of the humeral head is flattened and hypertrophic. There is no soft tissue abnormality. IMPRESSION: Healing proximal humeral fracture. 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 Reviewed, Interpreted and Dictated by Deejay Nolasco MD Transcribed by Kayley Rivas Authenticated and [facility]
== END ==
PROVIDERS: PCP Family Medicine; Visit Provider Physician Assistant Surgical
DX: S42.301A Unspecified fracture of shaft of humerus, right arm, initial encounter for closed fracture (principal)
CPT/HCPCS: 73060

== ENCOUNTER → 2021-12-24 08:18 | Outpatient (CLI) | payer MEDICARE, SELFPAY ==
--- NOTE | 2021-12-24 08:25 | US_ITS ---
FINAL REPORT CLINICAL HISTORY: ARTERIOSCLEOTIC CARDIOVASCULAR DISEASE FINDINGS: Limited images of the abdominal aorta were obtained. There is no evidence of abdominal aortic aneurysm. The iliacs are on the upper limits of normal. Plaque is noted. IMPRESSION: No evidence of abdominal aortic aneurysm. Reviewed, Interpreted and Dictated by Odin Vogel III, MD Transcribed by Magali Ramos Authenticated and [facility]
== END ==
PROVIDERS: PCP Family Medicine; Visit Provider Family Medicine
DX: I25.10 Atherosclerotic heart disease of native coronary artery without angina pectoris (principal)
CPT/HCPCS: 76770

== ENCOUNTER 2021-12-25 11:00 | Outpatient (RCR) | payer MEDICARE, SELFPAY ==
--- NOTE | 2021-07-18 16:31 | HMH.OTOPEV ---
OT Inpatient Evaluation Rehab OT Outpatient Eval Start: 07/18/21 15:52 Freq: Status: Active Protocol: Document 07/18/21 15:55 SIDDHARTHAPASCUAL (Rec: 07/18/21 16:31 FLOR [id number]) Electronically Signed By Addie Mendez, OT 07/18/21 15:55 Outpatient Therapy Subjective History Subjective History 76 year old male referred to skilled OP OT services this date after a recent fall at home on 06/25/21. Patient stated he fell backwards over a bookcase and landed on his shoulder which resulted in fx of proximal humeral diaphysis and new medical displacement of distal fx fragment. Ortho and Patient agreed to complete displaced fx with non- operative at this time. Waiting to hear back from ortho for restrictions at this time. Patient had surgery on the right shoulder over 40 years ago after multiple dislocations and wiring is still in the shoulder. Patient stated to have only functional AROM with R UE shoulder after s/p surgery. Chief Complaint Pain,Weakness Symptom Type Ache Symptoms Relieved By Heat,OTC Meds Symptoms Aggravated By Physical Activity Prior Functional Limitations None Current Functional Limitations Reaching,Lifting,Recreation Activity Symptom Description Constant and Continuous Level of pain today (0-10) 0 Pain scale - at its best (0-10) 0 Pain scale - at its worst (0-10) 6 Shoulder/Elbow Eval Shoulder Objective Measurements Shoulder ROM Right Shoulder Abduction Active Range of 38 Motion (degrees) Shoulder Flexion Active Range of Motion 20 (degrees) Query Text: Shoulder External Rotation Active Range 0 of Motion (degrees) Shoulder Internal Rotation Active Range 0 of Motion (degrees) pain with active ROM shoulder exam right standard Shoulder MMT Shoulder Abduction Strength Grade 2 Poor Shoulder Extension Strength Grade 2 Poor Shoulder Flexion Strength Grade 2 Poor Shoulder Horizontal Abduction Strength 2 Poor Grade Shoulder Horizontal Adduction Strength 2 Poor Grade
--- NOTE | 2021-10-09 10:32 | HMH.RHREAS ---
Rehab Reassessment Rehab OP Re-assessment Start: 08/26/21 14:02 Freq: Status: Active Protocol: Document 10/09/21 10:17 FLOR (Rec: 10/09/21 10:32 FLOR [id number]) Electronically Signed By Addie Mendez, OT 10/09/21 10:17 Rehab Re-assessment Subjective Subjective I can do alot more with my shoulder. I can wash my face. I can do my hair. I can do just about anything I need to do around the house. Objective Objective Notes Patient has participated in skilled OP OT services for displaced humerus fx to R UE. Patient has completed tasks of AAROM, AROM, PROM, strengthening and variety of modalities to decrease pain levels in order to return to QOL. Assessment Progress Assessment Progressing as Expected Assessment Notes Evaluation: 07/18/21 AROM of R UE shld flex: 20 abd: 38 er: 0 ir: 0 6/10 pain at worst 2/5 shoulder strength at worst Re-assessment on 08/26/21 AROM of R UE shld flex: 75 abd: 60 ir: 30 er: 20 7/10 at worst 2+ to 3-/5 strength Re-assessment on 10/09/21 AROM of RUE shld flex: 100 abd:80 ir:40 er:40 3-/5 strength throughout 2/10 pain at worst Patient goals met Improvements in R UE AROM of shoulder flex/abd/ir/er. decrease in pain level. and improvement with overall R shld strength. Goals Not Met LTGs Revised Goals AROM of RUE shld flex: 120 abd:100 ir:60 er:60 3/5 strength throughout
== END 2021-12-25 12:00 | disposition home or self-care (01) ==
LOC: OT 11:00
PROVIDERS: PCP Family Medicine; Visit Provider Orthopaedic Surgery
DX: M25.511 Pain in right shoulder (principal)
CPT/HCPCS: 97010; 97014; 97035; 97110; 97140; 97164; 97165; 97530; G0283

== ENCOUNTER → 2022-02-27 13:20 | Outpatient (CLI) | payer MEDICARE, SELFPAY ==
--- NOTE | 2022-02-27 13:21 | CA_ITS ---
FINAL REPORT CLINICAL HISTORY: VERO FINDINGS: An ultrasound of the carotid arteries was performed. Duplex Doppler evaluation with spectral analysis was performed. The peak systolic velocity of the right common carotid artery is 83 cm/s. The peak systolic velocity of the right internal carotid artery is 87 cm/s and end diastolic velocity 21 cm/s. A small amount of plaque is present. The right external carotid artery is patent. The right vertebral artery is patent with antegrade flow. ICA/CCA ratio: 1.4 The peak systolic velocity of the left common carotid artery is 85 cm/s. The peak systolic velocity of the left internal carotid artery is 206 cm/s and end diastolic velocity 41 cm/s. A moderate amount of plaque is present. The left external carotid artery is patent. The left vertebral artery is patent with antegrade flow. ICA/CCA ratio: 3.09 Bilateral patent vertebral arteries with antegrade flow. IMPRESSION: 50-69% left carotid stenosis. Less than 50% right carotid stenosis. Reviewed, Interpreted and Dictated by Deejay Nolasco MD Transcribed by Wali Oliveros Authenticated and [facility]
== END ==
PROVIDERS: PCP Family Medicine; Visit Provider Physician Assistant
DX: I65.23 Occlusion and stenosis of bilateral carotid arteries (principal)
CPT/HCPCS: 93880

== ENCOUNTER 2022-05-09 10:18 | Day surgery (SDC) | payer MEDICARE, SELFPAY ==
[2022-05-09] VITALS (7 sets, daily range): BP systolic 104–141; BP diastolic 63–88; PULSE 54–62; RESP 15–18; TEMP 36.3–36.4; O2SAT 95–98; BMI 27.3
--- NOTE | 2022-05-09 11:17 | EXP.ANES.CKL ---
[facility] Disclaimer: The information contained in this section may have been updated after the patient was seen, as this information can be updated by other users. 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 Major depressive disorder Stenosis of carotid artery Tobacco use Surgical History H/O arthroscopy of shoulder History of hernia surgery Stented coronary artery Family History Other Cancer Coronary artery disease No significant family history Stroke Social History Smoking Status: Current every day smoker tobacco type: cigarettes packs per day: 1 years smoked: 60 alcohol intake: never substance use type: denies use current occupational status: retired Travel in the last 8 weeks: Inside the [place] number of children: 0 caffeine: Yes [facility] Anesthesia Checklist Patient Identification Patient Identification: Arm Band and Verbal (Name & ) Structural Data Admitted From: Home Planned Operative Procedure/s: Colonoscopy Consent for Planned Operative Procedure(s) Verified: Yes NPO Status Verified Time NPO: 00:00 Chart Verification Results Verified: CBC and BMP Airway Assessment C-Spine Mobility Assessed: Yes TMJ Mobility Assessed: Yes Dentition: Poor Dentition Neurological Assessment Level of Consciousness: Awake Hx Seizures: No Numbness or tingling in extremities: No Anesthesia Plan Anesthesia Risk discussed: Yes Anesthesia Plan: Verified ASA Class: III Anesthesia Type: MAC
--- NOTE | 2022-05-09 12:26 | HMH.SCOPE ---
Procedure: Date: 05/09/22 Patient Date of :: 1945 Procedure Performed:: Total colonoscopy to ileocecal valve with numerous polypectomy Indications:: Patient is a 76-year-old smoker with history of coronary artery disease, chronic renal insufficiency, atrial fibrillation, carotid stenosis, hypertension, hyperlipidemia, on Xarelto and Plavix. He had undergone colonoscopy on 06/16/[address] Remy and this was reportedly normal with a tiny hyperplastic appearing polyp in the distal transverse colon. Patient recently underwent Cologuard which was positive. He was scheduled for colonoscopy. Performing Provider:: Odin Galdamez MD Referring Provider:: Wade Yates MD Sedation:: MAC sedation Procedure:: Patient history was obtained and appropriate physical examination was performed. Patient's medications and allergies were reviewed. Informed consent was obtained after explaining the benefits, alternatives, and risks of the procedure including, but not limited to, bleeding, perforation, missed lesions, and adverse reaction to anesthesia medications. Patient was transported to endoscopy procedure room. Patient was connected to monitoring devices. Throughout the procedure the patient's blood pressure, pulse, and oxygen saturations were monitored continuously. Patient identification and planned procedure were verified by the staff. Patient was positioned in lateral decubitus position. Digital anorectal exam was performed. Variable stiffness Olympus colonoscope was inserted and advanced under direct visualization to the cecum. Adequacy of the colonic preparation was noted. The colonoscope was advanced a short distance into the terminal ileum. The colonoscope was then slowly withdrawn while carefully examining the color, texture, anatomy, and integrity of the mucosoa circumferentially. Within the rectum retroflexion was performed. Colonoscope was then withdrawn. Impression: The colonoscope was advanced to the cecum with some minor difficulty due to redundancy in floppiness of the sigmoid colon. Ultimately the ileocecal valve and appendiceal orifice were clearly identified. There was a large amount of particulate liquid stool and particulate undigested vegetable matter throughout the colon resulting in fair preparation. This was mostly able to be cleared. In the cecum there was a diminutive polyp removed with cold snare and retrieved with biopsy forceps. Also in the cecum there were a couple of adenomatous appearing sessile polyps removed with cold snare. Hemoclip was deployed for hemostasis assurance. In the ascending colon there was a diminutive polyp removed with biopsy forceps. The proximal transverse colon there were a couple of adenomatous appearing polyps removed with cold cutting snare. 1 of these was unable to be retrieved due to small size of the polyp and amount of particulate stool and undigested particulate vegetable matter within the colon. There were a couple of mid transverse colon polyps removed with cold snare. In the sigmoid colon there was a tiny diminutive polyp removed with biopsy. The rectosigmoid region there were 4 diminutive polyps which appeared hyperplastic which were removed with cold biopsy forceps. Retroflexion within the rectum revealed nonpathologic appearing internal hemorrhoids. Findings:: He had a total of 15 polyps removed. See above for details. Most of these are small. Most suspicious was cecal polyp #2x2 which were sessile and adenomatous appearing He had rare diverticulosis Suboptimal preparation Recommendations:: Follow-up colonoscopy pending pathology. Likely approximately 2 years Complications:: None immediately apparent Estimated blood obtained (mL): 3
== END 2022-05-09 13:22 | disposition home or self-care (01) ==
PROVIDERS: PCP Family Medicine; Visit Provider Surgery
PROC: 0DJD8ZZ Inspection of Lower Intestinal Tract, Via Natural or Artificial Opening Endoscopic (ICD-10-PCS; principal; 2022-05-09 11:30)
DX: R19.5 Other fecal abnormalities (principal); D12.6 Benign neoplasm of colon, unspecified; Z72.0 Tobacco use; Z79.899 Other long term (current) drug therapy
CPT/HCPCS: 45380; 45385; 88305; J2704

== ENCOUNTER → 2022-05-13 07:48 | Outpatient (CLI) | payer MEDICARE, SELFPAY ==
--- NOTE | 2022-05-13 07:50 | US_ITS ---
FINAL REPORT CLINICAL HISTORY: AAA screening, dizziness FINDINGS: Sonographic images were obtained of the abdominal aorta. The abdominal aorta measures up to 2.3 cm in greatest dimensions. The common iliac arteries are within normal limits. IMPRESSION: No evidence of aneurysm. Reviewed, Interpreted and Dictated by Odin Vogel III, MD Transcribed by Wali Oliveros Authenticated and [facility]
== END ==
PROVIDERS: PCP Family Medicine; Visit Provider Family Medicine
DX: Z13.6 Encounter for screening for cardiovascular disorders (principal)
CPT/HCPCS: 76770

== ENCOUNTER 2023-01-21 15:55 | Emergency (ER) | payer MEDICARE, SELFPAY ==
--- NOTE | 2023-01-21 15:58 | HMH.EDGENADL ---
Discharge Plan Disposition Patient Disposition: Home, Self-Care Condition: Good Chief Complaint: Skin/Abscess/Foreign Body Prescriptions Prescriptions: No Action ezetimibe [Zetia] 10 mg tablet 10 mg PO DAILY cholecalciferol (vitamin D3) 1,000 unit capsule 1,000 unit PO DAILY vitamin B complex [B Complex-Vitamin B12] Tablet 1 tab PO HS diltiazem HCl [Cardizem CD] 120 mg capsule,extended release 24hr 120 mg PO DAILY atorvastatin 10 mg tablet See Rx Instructions .ROUTE .COMPLEX Qty: 90 3RF Dose Instruction: TAKE 1 TABLET DAILY FOR CHOLESTEROL Rx Instructions: TAKE 1 TABLET DAILY FOR CHOLESTEROL lorazepam [Ativan] 0.5 mg tablet 0.5 mg PO BID PRN (Reason: anxiety) Qty: 60 1RF clopidogrel 75 MG tablet 75 mg PO DAILY bisoprolol fumarate 5 MG tablet 5 mg PO DAILY rivaroxaban 15 MG tablet 15 mg PO DAILY citalopram [Celexa] 20 mg tablet 20 mg PO DAILY Referrals Follow up/Referrals: Natalie Yates MD [Primary Care Provider] - See instructions Activity Restrictions/Add. Instructions Additional Instructions/Restrictions: Please follow-up with your physician. These keep wound covered for the next 2 days and then follow-up wound care instructions as discussed. Please return if you begin to soak through the dressings extensively or have significant bleeding. I expect you to have a small amount of bleeding when you are on blood thinners. Clinical Impressions Clinical Impression: Post-op bleeding Instructions Patient Instructions: DI for Skin Abscess Discharge ED Provider: Sterling Gilbert Adult [facility] General Chief complaint: Skin/Abscess/Foreign Body Stated complaint: toenails removed LT foot, bleeding Time Seen by Provider: 01/21/23 15:58 Related Data Home Medications Medication Instructions Recorded Confirmed ezetimibe 10 mg tablet (Zetia) 10 mg PO DAILY Cholesterol 11/09/18 01/21/23 cholecalciferol (vitamin D3) 25 1,000 unit PO DAILY Supplement 11/19/18 01/21/23 mcg (1,000 unit) capsule vitamin B complex (B 1 tab PO HS Supplement 11/19/18 01/21/23 Complex-Vitamin B12 tablet) bisoprolol fumarate 5 mg tablet 5 mg PO DAILY Heartburn 09/16/19 01/21/23 clopidogrel 75 mg tablet 75 mg PO DAILY antiplatelet 09/16/19 01/21/23 rivaroxaban 15 mg tablet 15 mg PO DAILY anticoag 09/16/19 01/21/23 diltiazem HCl 120 mg 120 mg PO DAILY BP 02/05/22 01/21/23 capsule,extended release 24 hr (Cardizem CD) citalopram 20 mg tablet (Celexa) 20 mg PO DAILY Depression 05/05/22 01/21/23 Previous Rx's Medication Instructions Recorded atorvastatin 10 mg tablet See Rx Instructions .Route 10/08/22 .COMPLEX #90 tabs lorazepam 0.5 mg tablet (Ativan) 0.5 mg PO BID PRN anxiety #60 tabs 11/10/22 Allergies Allergy/AdvReac Type Severity Reaction Status Date / Time No Known Allergies Allergy Verified 01/21/23 09:[address] [facility] Disclaimer: The information contained in this section may have been updated after the patient was seen, as this information can be updated by other users. Medical History Anxiety CAD (coronary artery disease) Carotid artery stenosis Carotid bruit present Chronic a-fib Depression Generalized anxiety disorder Hard of hearing History of cataract HTN (hypertension) Hyperlipidemia [facility] current use of anticoagulant Major depressive disorder Stenosis of carotid artery Tobacco use Surgical History H/O arthroscopy of shoulder History of colonoscopy History of hernia surgery Stented coronary artery Family History Other Cancer Coronary artery disease No significant family history Stroke Social History Smoking Status: Current every day smoker tobacco type: cigarettes packs per day: 1 years smoked: 60 alcohol intake: never
[2023-01-21 16:05] VITALS: BP 117/70; PULSE 56; RESP 18; TEMP 36.6; O2SAT 97; BMI 28.3
[2023-01-21 17:02] VITALS: BP 117/70; PULSE 56; RESP 18; TEMP 36.6; O2SAT 97
== END 2023-01-21 17:02 | disposition home or self-care (01) ==
PROVIDERS: Emergency Provider Emergency Medicine; PCP Family Medicine
DX: L76.22 Postprocedural hemorrhage of skin and subcutaneous tissue following other procedure (principal); I25.10 Atherosclerotic heart disease of native coronary artery without angina pectoris; F17.210 Nicotine dependence, cigarettes, uncomplicated; F41.1 Generalized anxiety disorder; I65.29 Occlusion and stenosis of unspecified carotid artery; I48.20 Chronic atrial fibrillation, unspecified; F32.9 Major depressive disorder, single episode, unspecified; I10 Essential (primary) hypertension; E78.5 Hyperlipidemia, unspecified; Y83.9 Surgical procedure, unspecified as the cause of abnormal reaction of the patient, or of later complication, without mention of misadventure at the time of the procedure
CPT/HCPCS: 99282

== ENCOUNTER 2023-01-21 22:58 | Emergency (ER) | payer MEDICARE, SELFPAY ==
[2023-01-21 23:00] VITALS: BP 133/66; PULSE 52; RESP 16; TEMP 36.4; O2SAT 98; BMI 28.3
--- NOTE | 2023-01-21 23:41 | HMH.EDGENADL ---
Discharge Plan Disposition Patient Disposition: Home, Self-Care Prescriptions Prescriptions: No Action ezetimibe [Zetia] 10 mg tablet 10 mg PO DAILY cholecalciferol (vitamin D3) 1,000 unit capsule 1,000 unit PO DAILY vitamin B complex [B Complex-Vitamin B12] Tablet 1 tab PO HS diltiazem HCl [Cardizem CD] 120 mg capsule,extended release 24hr 120 mg PO DAILY atorvastatin 10 mg tablet See Rx Instructions .ROUTE .COMPLEX Qty: 90 3RF Dose Instruction: TAKE 1 TABLET DAILY FOR CHOLESTEROL Rx Instructions: TAKE 1 TABLET DAILY FOR CHOLESTEROL lorazepam [Ativan] 0.5 mg tablet 0.5 mg PO BID PRN (Reason: anxiety) Qty: 60 1RF clopidogrel 75 MG tablet 75 mg PO DAILY bisoprolol fumarate 5 MG tablet 5 mg PO DAILY rivaroxaban 15 MG tablet 15 mg PO DAILY citalopram [Celexa] 20 mg tablet 20 mg PO DAILY Referrals Follow up/Referrals: Natalie Yates MD [Primary Care Provider] - See instructions Activity Restrictions/Add. Instructions Additional Instructions/Restrictions: Hold Xarelto and plavix until tomorrow, 01/22. Call your family doctor to establish care for this visit to the emergency department and schedule follow-up within 48 hours to ensure improvement. If you have any worsening of your condition or any other concerning signs or symptoms, return to the emergency department or your primary care doctor for further evaluation. Clinical Impressions Clinical Impression: Post-op bleeding Qualifiers: Surgical complication system/body Area: skin Procedure type: non-dermatologic Qualified Code(s): L76.22 - Postprocedural hemorrhage of skin and subcutaneous tissue following other procedure Discharge ED Provider: Beto Jeffries General Adult [facility] General Chief complaint: Wound/Laceration Stated complaint: seen earlier, toenail removed and bleeding Time Seen by Provider: 01/21/23 23:10 Mode of Arrival: Ambulatory Source of Information: Patient Limitations: No Limitations Description of Symptoms (Recalled from ER Triage Doc. by RN): Patient ambulaory to ED via POV. Patient had toenails removed from left foot at [address] Cm. He was seen in ED around 1600 for uncontrolled bleeding. Foot rewrapped and bleeding controlled before being sent home earlier today. Patient returns to ED for coninuous bleeding of left foot after toenail removal. Patient reports he did not take evening dose of Xarelto. History of Present Illness HPI narrative: This is a 77-year-old male with history of hypertension, hyperlipidemia, CAD status post stenting on Plavix, A-fib on Xarelto presenting with bleeding. Patient was seen today in the AM by podiatry and had all of the nails on his left foot removed. Because he is on Eliquis and Plavix, he continued to bleed, was told to come to the ER. Was seen in the ER earlier today on 01/21 and bleeding was made hemostatic, but patient states that he went to bed, woke up and had soaked through his dressings, so came back to the ER out of concern for bleeding out. Denies chest pain, shortness of breath, nausea or vomiting, pallor, weakness, or pulsatile bleeding. Has not taken his Xarelto or Plavix today. Related Data Home Medications Medication Instructions Recorded Confirmed ezetimibe 10 mg tablet (Zetia) 10 mg PO DAILY Cholesterol 11/09/18 01/21/23 cholecalciferol (vitamin D3) 25 1,000 unit PO DAILY Supplement 11/19/18 01/21/23 mcg (1,000 unit) capsule vitamin B complex (B 1 tab PO HS Supplement 11/19/18 01/21/23 Complex-Vitamin B12 tablet) bisoprolol fumarate 5 mg tablet 5 mg PO DAILY Heartburn 09/16/19 01/21/23 clopidogrel 75 mg tablet 75 mg PO DAILY antiplatelet 09/16/19 01/21/23 rivaroxaban 15 mg tablet 15 mg PO DAILY anticoag 09/16/19 01/21/23 diltiazem HCl 120 mg 120 mg PO DAILY BP 02/05/22 01/21/23 capsule,extended release 24 hr (Cardizem CD) citalopram 20 mg tablet (Celexa) 20 mg PO DAILY Depression 05/05/22
--- NOTE | 2023-01-22 00:22 | PC.NURSE ---
Rounded on patient, in room, no needs at this time
[2023-01-22 00:31] VITALS: BP 109/47; PULSE 52; RESP 16; TEMP 36.8; O2SAT 99
== END 2023-01-22 00:30 | disposition home or self-care (01) ==
PROVIDERS: Emergency Provider Emergency Medicine; PCP Family Medicine
DX: I48.20 Chronic atrial fibrillation, unspecified (principal); L76.22 Postprocedural hemorrhage of skin and subcutaneous tissue following other procedure; I10 Essential (primary) hypertension; E78.5 Hyperlipidemia, unspecified; I25.10 Atherosclerotic heart disease of native coronary artery without angina pectoris; F32.9 Major depressive disorder, single episode, unspecified; F41.1 Generalized anxiety disorder; Z79.01 Long term (current) use of anticoagulants; Z79.02 Long term (current) use of antithrombotics/antiplatelets; F17.210 Nicotine dependence, cigarettes, uncomplicated
CPT/HCPCS: 99282

== ENCOUNTER → 2023-02-27 13:45 | Outpatient (CLI) | payer MEDICARE, SELFPAY ==
--- NOTE | 2023-02-27 13:48 | CA_ITS ---
FINAL REPORT TECHNIQUE: Real-time imaging was performed of the extracranial carotid arteries in transverse and longitudinal planes with color duplex evaluation of blood flow velocity. Spectral analysis was performed. The cervicovertebral arteries were also examined. Stenosis evaluation based on elevated velocity criteria. CLINICAL HISTORY: Carotid artery stenosis FINDINGS: FINDINGS: RIGHT CAROTID: CCA PSV: 78 cm/sec ICA PSV: 112 cm/sec ECA PSV: 115 cm/sec ICA/CCA systolic flow velocity ratio: 1.6 Moderate atherosclerotic plaque is noted. Narrowing is classified in the less than 50% category. LEFT CAROTID: CCA PSV: 83 cm/sec ICA PSV: 188 cm/sec ECA PSV: 126 cm/sec ICA/CCA systolic flow velocity ratio: 2.2 Moderately advanced atherosclerotic plaque is noted. Narrowing is classified in the 50-69% category. VERTEBRALS: Vertebral arteries are patent with antegrade flow and expected spectral waveforms. IMPRESSION: Less than 50% right carotid artery stenosis. 50 to 69% left carotid artery stenosis. Patent vertebral arteries. Reviewed, Interpreted and Dictated by Deeajy Nolasco MD Transcribed by Cristy Aponte Authenticated and . [facility]
== END ==
PROVIDERS: PCP Family Medicine; Visit Provider Nurse Practitioner Family
DX: E78.2 Mixed hyperlipidemia (principal); I10 Essential (primary) hypertension; I25.118 Atherosclerotic heart disease of native coronary artery with other forms of angina pectoris; I65.23 Occlusion and stenosis of bilateral carotid arteries; Z95.5 Presence of coronary angioplasty implant and graft; I48.20 Chronic atrial fibrillation, unspecified
CPT/HCPCS: 93880

== ENCOUNTER 2023-06-11 20:09 | Emergency (ER) | payer MEDICARE, SELFPAY ==
--- NOTE | 2023-06-11 20:16 | ED_ITS ---
Discharge Plan Disposition Patient Disposition: Home, Self-Care Prescriptions Prescriptions: No Action ezetimibe [Zetia] 10 mg tablet 10 mg PO DAILY cholecalciferol (vitamin D3) 1,000 unit capsule 1,000 unit PO DAILY vitamin B complex [B Complex-Vitamin B12] Tablet 1 tab PO HS atorvastatin 10 mg tablet See Rx Instructions .ROUTE .COMPLEX Qty: 90 3RF Dose Instruction: TAKE 1 TABLET DAILY FOR CHOLESTEROL Rx Instructions: TAKE 1 TABLET DAILY FOR CHOLESTEROL lorazepam [Ativan] 0.5 mg tablet 0.5 mg PO BID PRN (Reason: anxiety) Qty: 60 1RF clopidogrel 75 MG tablet 75 mg PO DAILY bisoprolol fumarate 5 MG tablet 5 mg PO DAILY rivaroxaban 15 MG tablet 15 mg PO DAILY citalopram [Celexa] 20 mg tablet 20 mg PO DAILY Referrals Follow up/Referrals: Natalie Yates MD [Primary Care Provider] - See instructions Activity Restrictions/Add. Instructions Additional Instructions/Restrictions: Your very small superficial laceration of her lower lip was controlled using direct pressure please continue to use this at home if needed. No further procoagulant products were used but if there is any significant bleeding is not controlled at home with direct pressure with 15 to 20 minutes of holding pressure please return to the emergency department. Clinical Impressions Clinical Impression: Laceration of lower lip, Anticoagulant effect Discharge ED Provider: Milka Sotelo General Adult HPI General Chief complaint: Recheck/Abnormal Lab/Rx Stated complaint: bit lip, wont stop bleeding Time Seen by Provider: 06/11/23 20:12 History of Present Illness HPI narrative: Patient is a 77-year-old male on Plavix and Xarelto who presents today with a small cut to the lower aspect of his mucosal surface of his lower lip while eating fish he has been having a hard time getting the bleeding to stop which is what prompted him to come to the emergency department. He has been dabbing it with a napkin and it has not spontaneously stopped on its own. Related Data Home Medications Medication Instructions Recorded Confirmed ezetimibe 10 mg tablet (Zetia) 10 mg PO DAILY Cholesterol 11/09/18 05/07/23 cholecalciferol (vitamin D3) 25 1,000 unit PO DAILY Supplement 11/19/18 05/07/23 mcg (1,000 unit) capsule vitamin B complex (B 1 tab PO HS Supplement 11/19/18 05/07/23 Complex-Vitamin B12 tablet) bisoprolol fumarate 5 mg tablet 5 mg PO DAILY Heartburn 09/16/19 05/07/23 clopidogrel 75 mg tablet 75 mg PO DAILY antiplatelet 09/16/19 05/07/23 rivaroxaban 15 mg tablet 15 mg PO DAILY anticoag 09/16/19 05/07/23 citalopram 20 mg tablet (Celexa) 20 mg PO DAILY Depression 05/05/22 05/07/23 Previous Rx's Medication Instructions Recorded atorvastatin 10 mg tablet See Rx Instructions .Route 10/08/22 .COMPLEX #90 tabs lorazepam 0.5 mg tablet (Ativan) 0.5 mg PO BID PRN anxiety #60 tabs 03/02/23 Allergies Allergy/AdvReac Type Severity Reaction Status Date / Time No Known Allergies Allergy Verified 05/07/23 10:15 [facility] Disclaimer: The information contained in this section may have been updated after the patient was seen, as this information can be updated by other users. Medical History Anxiety CAD (coronary artery disease) Carotid artery stenosis Carotid bruit present Chronic a-fib Depression Generalized anxiety disorder Hard of hearing History of cataract HTN (hypertension) Hyperlipidemia assisted current use of anticoagulant Major depressive disorder Stenosis of carotid artery Tobacco use Surgical History H/O arthroscopy of shoulder History of colonoscopy History of hernia surgery Stented coronary artery Family History Other Cancer Coronary artery disease No significant family history Stroke Social History Smoking Status: Current every day smoker tobacco type: cigarettes packs per day: 1 years smoked: 60 alcohol intake: never substance use type: denies use current occupational status: retired Travel in the last 8 weeks: Inside the [place] number of children: 0 caffeine: Yes ROS Obtained: Yes All systems reviewed & no additional complaints except as documented Physical Exam General General appearance: alert ENT ENT exam: Present other (Patient has a 2 mm very superficial laceration that is actively oozing blood on the mucosal aspect of the lower lip) Respiratory Respiratory exam: Present normal lung sounds bilaterally Cardiovascular Cardiovascular exam: Present regular rate Neurological Exam Neurological exam: Present alert Medical Decision Making Zi Inquiry Pt receiving controlled substance: No Vital Signs: 06/11/23 20:18 Temperature 98.3 F Temperature Source Oral Pulse Rate [Left Radial] 65 Respiratory Rate 18 Blood Pressure [Right Arm] 130/53 L Blood Pressure Mean [Right Arm] 78 Blood Pressure Source [Right Arm] Automatic Cuff Blood Pressure Position [Right Arm] Sitting 02 Sat by Pulse Oximetry 96 Oxygen Delivery Method Room Air Medical Decision Narrative: Very small superficial actively oozing laceration to the lower lip on the mucosal surface applying direct pressure to this will reassess in 10 minutes. Currently 8:17 PM. Reassessment 8:46 PM no active bleeding hemostatic return precautions discussed patient advised to use direct pressure if this does bleed anymore at home no further products needed at the moment no further emergent intervention needed he was agreeable to being discharged with close outpatient follow-up if he continues to bleed. Critical Care Critical Care Time Critical Care Time: No
[2023-06-11 20:18] VITALS: BP 130/53; PULSE 65; RESP 18; TEMP 36.8; O2SAT 96; BMI 27.3
[2023-06-11 20:49] VITALS: BP 136/58; PULSE 66; RESP 16; TEMP 36.7; O2SAT 95
[2023-06-11 20:51] VITALS: BP 136/58; PULSE 66; RESP 18; TEMP 36.7; O2SAT 95
== END 2023-06-11 20:52 | disposition home or self-care (01) ==
PROVIDERS: Emergency Provider Student in an Organized Health Care Education/Training Program; PCP Family Medicine
DX: S01.511A Laceration without foreign body of lip, initial encounter (principal); I25.10 Atherosclerotic heart disease of native coronary artery without angina pectoris; I65.29 Occlusion and stenosis of unspecified carotid artery; I48.20 Chronic atrial fibrillation, unspecified; I10 Essential (primary) hypertension; E78.5 Hyperlipidemia, unspecified; F17.210 Nicotine dependence, cigarettes, uncomplicated; Z79.01 Long term (current) use of anticoagulants; Z79.02 Long term (current) use of antithrombotics/antiplatelets; W26.8XXA Contact with other sharp object(s), not elsewhere classified, initial encounter
CPT/HCPCS: 99283

== ENCOUNTER 2024-04-14 10:27 | Outpatient (CLI) | payer MEDICARE, SELFPAY ==
--- NOTE | 2024-04-14 10:28 | CA_ITS ---
FINAL REPORT TECHNIQUE: Color Doppler, duplex Doppler and de león scale sonography of the bilateral neck arterial vasculature was performed. Velocities were measured in the carotid arteries. Stenosis evaluation based on the validated velocity criteria. CLINICAL HISTORY: CAD, Smoker, Cardiac arrhythmia, Bradycardia, Dizziness COMPARISON: None FINDINGS: The peak systolic velocity of the right common carotid artery is 55 cm/s. The peak systolic velocity of the right internal carotid artery is 94 cm/s and end diastolic velocity 30 cm/s. The ICA/CCA ratio is 1.8. A wgsw-vb-fgqegrlo amount of plaque is present. The right external carotid artery is patent. The right vertebral artery is patent with antegrade flow. The peak systolic velocity of the left common carotid artery is 71 cm/s. The peak systolic velocity of the left internal carotid artery is 136 cm/s and end diastolic velocity 25 cm/s. The ICA/CCA ratio is 2.1. A poqm-ph-xptlxciy amount of plaque is present. The left external carotid artery is patent.The left vertebral artery is patent with antegrade flow. IMPRESSION: Less than 50% bilateral carotid stenoses. Bilateral patent vertebral arteries with antegrade flow. If indicated, CTA or MRA could further evaluate. Authenticated and ERN
== END 2024-04-14 23:59 | disposition home or self-care (01) ==
LOC: RT 10:27
PROVIDERS: PCP Family Medicine; Visit Provider Internal Medicine
DX: I65.23 Occlusion and stenosis of bilateral carotid arteries (principal)
CPT/HCPCS: 93880

== ENCOUNTER 2024-05-20 06:18 | Day surgery (SDC) | payer MEDICARE, SELFPAY ==
[2024-05-18 14:15] VITALS: BMI 27.3
[2024-05-20] MEDS: LACTATED RINGERS 1000ML 1,000 ML 25 ML IV (06:31)
[2024-05-20 06:39] VITALS: BP 111/69; PULSE 64; RESP 18; TEMP 36.1; O2SAT 97
--- NOTE | 2024-05-20 06:54 | HMH.SCOPE ---
Procedure: Date: 05/20/24 Patient Date of :: 1945 Procedure Performed:: Total colonoscopy to ileocecal valve with multiple polypectomy Indications:: Patient is an 78-year-old male with history of coronary artery disease, chronic renal insufficiency, carotid stenosis, hypertension, atrial fibrillation, hyperlipidemia on Xarelto who presents for follow-up colonoscopy. I did a colonoscopy on 05/09/2022 for positive Cologuard at which time he had 15 polyps removed 10 of which were tubular adenomas. Performing Provider:: Odin Galdamez MD Referring Provider:: Wade Yates MD Sedation:: MAC sedation Procedure:: Patient history was obtained and appropriate physical examination was performed. Patient's medications and allergies were reviewed. Informed consent was obtained after explaining the benefits, alternatives, and risks of the procedure including, but not limited to, bleeding, perforation, missed lesions, and adverse reaction to anesthesia medications. Patient was transported to endoscopy procedure room. Patient was connected to monitoring devices. Throughout the procedure the patient's blood pressure, pulse, and oxygen saturations were monitored continuously. Patient identification and planned procedure were verified by the staff. Patient was positioned in lateral decubitus position. Digital anorectal exam was performed. Variable stiffness Olympus colonoscope was inserted and advanced under direct visualization to the cecum. Adequacy of the colonic preparation was noted. The colonoscope was advanced a short distance into the ileocecal valve. The colonoscope was then slowly withdrawn while carefully examining the color, texture, anatomy, and integrity of the mucosoa circumferentially. Within the rectum retroflexion was performed. Colonoscope was then withdrawn. Impression: There was opaque liquid stool which was suctioned free. Within the cecum there was a small adenomatous appearing polyp removed with cold snare with residual base tissue biopsied with biopsy forceps. In the ascending colon there was a large irregular sessile polypoid lesion just proximal to the hepatic flexure is somewhat of a ridge polyp. This required prolonged piecemeal polypectomy initially using hot snare with use of Parker net for maceration of polypectomy tissue and retrieval in a piecemeal fashion. Once the majority was removed using hot snare cold snare was used to remove some residual polypoid appearing tissue with residual tissue removed with biopsy forceps. Procedure was rather prolonged and difficult. At the completion it did appear as though the polypoid tissue was removed in its entirety. Eden ink was injected submucosally to manny the area. Colonoscope was then slowly withdrawn through the remainder of the colon. At the sigmoid colon at approximately 35 to 40 cm from the anus there was a subtle but widespread sessile polyp. This was unable to be removed with cold snare. Paula view was injected which did raise the polypoid tissue somewhat. A portion of this was then able to be removed using hot snare. Remainder subtle tissue was unable to be removed using hot snare, cold snare. It was removed in a prolonged piecemeal fashion using biopsy forceps. At the completion Eden ink was injected to manny the area for future reference. There were few sigmoid diverticuli. In the rectosigmoid region there were multiple hyperplastic appearing polyps. Sampling was performed of several of these, 3, using biopsy forceps. . Findings:: Small adenomatous appearing cecal polyp Polypoid masslike lesion in ascending colon Widespread subtle sessile sigmoid polyp Multiple hyperplastic appearing rectosigmoid polyps Sigmoid diverticulosis Recommendations:: Follow-up on histopathology. Pending pathology could require colon resection versus early interval follow-up colonoscopy within several months to ensure complete polypectomy and rule out early recurrence. Complications:: None immediately apparent Estimated blood obtained (mL): 3 Colonoscopy Component Colonoscopy Component Was a colonoscopy performed during today's procedure?: Yes Recommended follow up colonoscopy of at least 10 years?: No If no, follow up colonoscopy recommended in ___ years?: See above Reason for not recommending >/= 10 yr follow-up interval?: See above
[2024-05-20 07:24] VITALS: O2SAT 97
--- NOTE | 2024-05-20 07:46 | EXP.ANES.CKL ---
[facility] Disclaimer: The information contained in this section may have been updated after the patient was seen, as this information can be updated by other users. 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 Carotid artery stenosis Chronic a-fib CAD (coronary artery disease) HTN (hypertension) Tobacco use Hyperlipidemia Surgical History History of colonoscopy History of hernia surgery H/O arthroscopy of shoulder Stented coronary artery Family History Other Cancer Coronary artery disease No significant family history Stroke Social History Smoking Status: Current every day smoker tobacco type: cigarettes packs per day: 1 years smoked: 60 alcohol intake: never substance use type: denies use current occupational status: retired Travel in the last 8 weeks: None number of children: 0 caffeine: Yes Have you lived/traveled outside [place] in past 30 days?: No Contact w/someone who lives/traveled outside US past 30 days?: No Exposure to someone with infectious disease in past 14 days?: No Have you tested positive for COVID-19: No Exposed to someone with COVID-19 in past 14 days?: No Do you have a sore throat?: No Do you have a cough?: No Do you have any weakness?: No Do you have any diarrhea?: No Are you experiencing any unusual bleeding?: No Do you have any muscle aches/pain?: No Do you have any abdominal pain?: No Are you experiencing loss of taste or smell?: No [facility] Anesthesia Checklist Patient Identification Patient Identification: Arm Band and Verbal (Name & ) Structural Data Admitted From: Home Planned Operative Procedure/s: Colonoscopy Consent for Planned Operative Procedure(s) Verified: Yes Verified Documents: Surgical Consent and History and Physical NPO Status Verified Time NPO: 06:30 (Black coffee) Additional verifications Anesthesia Reactions: No Airway Assessment Mallampati Score:: Class II C-Spine Mobility Assessed: Yes TMJ Mobility Assessed: Yes Dentition: Edentulous Neurological Assessment Level of Consciousness: Awake Hx Seizures: No Numbness or tingling in extremities: No Anesthesia Plan Anesthesia Risk discussed: Yes Anesthesia Plan: Verified ASA Class: III Anesthesia Type: MAC
[2024-05-20 09:15] VITALS: BP 110/47; PULSE 54; RESP 18; TEMP 36.2; O2SAT 95
[2024-05-20 09:25] VITALS: BP 130/64; PULSE 49; RESP 18; O2SAT 97
[2024-05-20 09:35] VITALS: BP 147/64; PULSE 53; RESP 18; O2SAT 96
[2024-05-20 09:45] VITALS: BP 117/57; PULSE 64; RESP 18; O2SAT 97
== END 2024-05-20 09:45 | disposition home or self-care (01) ==
PROVIDERS: PCP Family Medicine; Visit Provider Surgery
PROC: 0DJD8ZZ Inspection of Lower Intestinal Tract, Via Natural or Artificial Opening Endoscopic (ICD-10-PCS; CPT 45380; principal; 2024-05-20 07:30)
DX: K63.5 Polyp of colon (principal); D12.3 Benign neoplasm of transverse colon; D12.0 Benign neoplasm of cecum; D12.5 Benign neoplasm of sigmoid colon; K57.30 Diverticulosis of large intestine without perforation or abscess without bleeding; Z09 Encounter for follow-up examination after completed treatment for conditions other than malignant neoplasm; Z86.0101 Personal history of adenomatous and serrated colon polyps
CPT/HCPCS: 45380; 45381; 45385; 88305; J2704; J7120

== ENCOUNTER 2024-05-23 15:38 | Outpatient (CLI) | payer MEDICARE, SELFPAY ==
--- NOTE | 2024-05-23 | ECG_ITS ---
APPROVED REPORT Exam: Resting ECG HR:59 bpm ECG Measurements Heart Rate 59 AXES WA 119 P -74 QRSd 86 QRS 57 QT 468 T 71 QTc 466 Conclusion JUNCTIONAL BRADYCARDIA WITH OCCASIONAL SUPRAVENTRICULAR PREMATURE COMPLEXES PROLONGED QT INTERVAL ABNORMAL ECG UNCONFIRMED REPORT Electronically signed by : Carter Frye MD 05/24/2024 14:55:17
== END 2024-05-23 23:59 | disposition home or self-care (01) ==
LOC: RT 15:39
PROVIDERS: PCP Family Medicine; Visit Provider Family Medicine
DX: R00.1 Bradycardia, unspecified (principal); Z86.79 Personal history of other diseases of the circulatory system
CPT/HCPCS: 93005

== ENCOUNTER → 2024-10-21 06:02 | Day surgery (SDC) | payer MEDICARE, SELFPAY ==
[2024-10-19 14:34] VITALS: BMI 27.3
--- NOTE | 2024-10-21 05:58 | P.HP_ITS ---
HPI HPI HPI: Patient is an 79-year-old male with a history of coronary artery disease, chronic renal insufficiency, carotid stenosis, hypertension, atrial fibrillation, hyperlipidemia, on Xarelto. I had performed colonoscopy on 07/10/2021 for positive Cologuard. At that time he had 15 polyps removed 10 of which were tubular adenomas. He presented for follow-up colonoscopy on 05/20/2024. He was found to have polypoid masslike lesion in the ascending colon which was just proximal to the hepatic flexure. This required prolonged piecemeal polypectomy initially using hot snare with use of Parker net for extraction and maceration followed by cold snare followed by biopsy forceps. The area was marked with Eden ink. He also had a adenomatous polyp in the cecum as well as a widespread sessile polyp in the sigmoid colon which required polypectomy using hot and cold snare in a piecemeal fashion. This area was also marked with Eden ink. Final pathology on the ascending colon lesion revealed sessile serrated adenoma. Recommendations were for early interval follow-up colonoscopy to ensure removal and rule out early recurrence. [facility] Disclaimer: The information contained in this section may have been updated after the patient was seen, as this information can be updated by other users. 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 Carotid artery stenosis Chronic a-fib CAD (coronary artery disease) HTN (hypertension) Tobacco use Hyperlipidemia Surgical History History of colonoscopy History of hernia surgery H/O arthroscopy of shoulder Stented coronary artery Family History Other Cancer Coronary artery disease Stroke Social History (Updated 10/21/24 @ 06:28 by Melanie Beatty RN) Smoking Status: Current every day smoker tobacco type: cigarettes packs per day: 1 years smoked: 60 alcohol intake: never substance use type: denies use current occupational status: retired Travel in the last 8 weeks?: None number of children: 0 caffeine: Yes Have you lived/traveled outside US in past 30 days?: No Contact w/someone who lives/traveled outside US past 30 days?: No Exposure to someone with infectious disease in past 14 days?: No Do you have a fever (greater than 100.4 F or 38 C)?: No Have you tested positive for COVID-19?: No Exposed to someone with COVID-19 in past 14 days?: No Do you have a sore throat?: No Do you have a cough?: No Do you have any weakness?: No Are you experiencing any nausea/vomitting?: No Do you have any diarrhea?: No Are you experiencing any unusual bleeding?: No Do you have any muscle aches/pain?: No Do you have any abdominal pain?: No Are you experiencing loss of taste or smell?: No Other Medical History Have you received the Flu Vaccine for this season: No Have you received the Pneumonia Vaccine: Yes Meds Home Medications and Allergies Home Medications ?Medication ?Instructions ?Recorded ?Confirmed ?Type ezetimibe 10 mg tablet (Zetia) 10 mg PO DAILY Cholesterol 11/09/18 10/21/24 History vitamin B complex (B 1 tab PO HS Supplement 11/19/18 10/21/24 History Complex-Vitamin B12 tablet) bisoprolol fumarate 5 mg tablet 2.5 mg PO DAILY Heartburn 09/16/19 10/21/24 History rivaroxaban 15 mg tablet 15 mg PO DAILY anticoag 09/16/19 10/21/24 History citalopram 20 mg tablet (Celexa) 20 mg PO DAILY Depression 05/05/22 10/21/24 History ciclopirox 8 % topical solution 1 applic topical DAILY toenail 01/07/24 10/21/24 Rx fungus 3 months #6.6 mL aspirin 81 mg tablet,delayed 81 mg PO DAILY #30 tabs 04/07/24 10/21/24 Rx release (Adult Low Dose Aspirin) atorvastatin 20 mg tablet 20 mg PO DAILY #90 tabs 04/07/24 10/21/24 Rx lorazepam 0.5 mg tablet (Ativan) 0.5 mg PO BID PRN anxiety #60 tabs 06/30/24 10/21/24 Rx sodium,potassium,mag sulfates 17.5 See Rx Instructions PO .COMPLEX 09/30/24 10/21/24 Rx gram-3.13 gram-1.6 gram oral soln #354 mL (Suprep Bowel Prep Kit) donepezil 5 mg tablet 5 mg PO HS 10/20/24 10/21/24 History cholecalciferol (vitamin D3) 125 125 mcg PO DAILY 10/21/24 10/21/24 History mcg (5,000 unit) tablet (Vitamin D3) coffee extract 50 mg-phosphatidyl 1 tab PO DAILY 10/21/24 10/21/24 History serine 50 mg chewable tablet (Neuriva Original) diltiazem HCl 120 mg 120 mg PO DAILY 10/21/24 10/21/24 History capsule,extended release 24 hr (Cardizem CD) meclizine 12.5 mg tablet 12.5 mg PO TID PRN . 10/21/24 10/21/24 History plecanatide 3 mg tablet (Trulance) 3 mg PO DAILY 10/21/24 10/21/24 History New Prescriptions to Start Prescriptions: Allergies Allergy/AdvReac Type Severity Reaction Status Date / Time No Known Allergies Allergy Verified 10/21/24 06:38 Exam Data for Last 24 hours I & O for Last 24 hours: Intake & Output 10/18/24 10/19/24 10/20/24 10/21/24 11:59 11:59 11:59 11:59 Weight 180 lb Constitutional Constitutional: no acute distress *Routine HEENT Exam Head: Present normocephalic Eye: Present EOMI and PERRL ENT: Present mucous membranes moist *Routine Neck Exam Neck: Present supple; Absent lymphadenopathy *Routine Respiratory Exam Respiratory: Present CTA bilaterally *Routine Cardiovascular Exam Cardiovascular: Present RRR *Routine Abdominal Exam Abdominal: Present soft and normoactive bowel sounds; Absent tenderness *Routine Rectal Exam Rectal:: deferred *Routine Genitalia Exam Genitalia:: deferred *Routine Extremities Exam Extremities: Absent cyanosis, clubbing or edema *Routine Skin Exam Skin: Present warm; Absent rash *Routine Neurological Exam Neurological: Present alert and oriented X3 Assessment and Plan *Assessment and plan (1) Serrated adenoma of colon: Status: Acute Category: Medical Code(s): D12.6 - Benign neoplasm of colon, unspecified Plan Plan to proceed with follow-up colonoscopy.
[2024-10-21 06:19] VITALS: BP 121/51; PULSE 60; RESP 18; TEMP 36.4; O2SAT 95
--- NOTE | 2024-10-21 06:58 | EXP.ANES.CKL ---
[facility] Disclaimer: The information contained in this section may have been updated after the patient was seen, as this information can be updated by other users. 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 Carotid artery stenosis Chronic a-fib CAD (coronary artery disease) HTN (hypertension) Tobacco use Hyperlipidemia Surgical History History of colonoscopy History of hernia surgery H/O arthroscopy of shoulder Stented coronary artery Family History Other Cancer Coronary artery disease Stroke Social History (Updated 10/21/24 @ 06:28 by Melanie Beatty RN) Smoking Status: Current every day smoker tobacco type: cigarettes packs per day: 1 years smoked: 60 alcohol intake: never substance use type: denies use current occupational status: retired Travel in the last 8 weeks?: None number of children: 0 caffeine: Yes Have you lived/traveled outside US in past 30 days?: No Contact w/someone who lives/traveled outside [place] past 30 days?: No Exposure to someone with infectious disease in past 14 days?: No Do you have a fever (greater than 100.4 F or 38 C)?: No Have you tested positive for COVID-19?: No Exposed to someone with COVID-19 in past 14 days?: No Do you have a sore throat?: No Do you have a cough?: No Do you have any weakness?: No Are you experiencing any nausea/vomitting?: No Do you have any diarrhea?: No Are you experiencing any unusual bleeding?: No Do you have any muscle aches/pain?: No Do you have any abdominal pain?: No Are you experiencing loss of taste or smell?: No [facility] Anesthesia Checklist Patient Identification Patient Identification: Arm Band and Family Structural Data Admitted From: Home Planned Operative Procedure/s: Colonoscopy Consent for Planned Operative Procedure(s) Verified: Yes Verified Documents: Surgical Consent and History and Physical NPO Status Verified Time NPO: 00:00 Additional verifications Patient : No Anesthesia Reactions: No Hx Blood Transfusions: No Blood Transfusion Reaction: No Cephalosporin Allergy: No Previous Colonoscopy: Yes Airway Assessment Mallampati Score:: Class III C-Spine Mobility Assessed: Yes TMJ Mobility Assessed: Yes Dentition: Edentulous Neurological Assessment Level of Consciousness: Awake, Alert, Appropriate and Follows Commands Hx Seizures: No Numbness or tingling in extremities: No Anesthesia Plan Anesthesia Risk discussed: Yes ASA Class: III Anesthesia Type: MAC Preoperative Comments Pre-Operative Comments: Cardiac stents.
--- NOTE | 2024-10-21 07:38 | SUR.PREOP ---
Per Dr Galdamez and anesthesia, pt can not proceed to scope room until clarification from cardiology on if pt can stop thinners for 5 days vs 2 days in cardiac clearance letter. Pt stopped his thinners on his own 5 days ago, cardiology clinic stated 2 days in cardiac clearance letter.
--- NOTE | 2024-10-21 08:05 | SUR.PREOP ---
contacted Kiara in cardiology office to have cardiology provider call anesthesia in regards to thinners clarification
[2024-10-21 10:31] VITALS: O2SAT 95
--- NOTE | 2024-10-21 11:17 | HMH.SCOPE ---
Procedure: Date: 10/21/24 Patient Date of :: 1945 Procedure Performed:: Total colonoscopy with polypectomy Indications:: Patient is an 79-year-old male with a history of coronary artery disease, chronic renal insufficiency, carotid stenosis, hypertension, atrial fibrillation, hyperlipidemia, on Xarelto. I had performed colonoscopy on 07/10/2021 for positive Cologuard. At that time he had 15 polyps removed 10 of which were tubular adenomas. He presented for follow-up colonoscopy on 05/20/2024. He was found to have polypoid masslike lesion in the ascending colon which was just proximal to the hepatic flexure. This required prolonged piecemeal polypectomy initially using hot snare with use of Parker net for extraction and maceration followed by cold snare followed by biopsy forceps. The area was marked with Eden ink. He also had a adenomatous polyp in the cecum as well as a widespread sessile polyp in the sigmoid colon which required polypectomy using hot and cold snare in a piecemeal fashion. This area was also marked with Eden ink. Final pathology on the ascending colon lesion revealed sessile serrated adenoma. Recommendations were for early interval follow-up colonoscopy to ensure removal and rule out early recurrence. Performing Provider:: Odin Galdamez MD Referring Provider:: Wade Yates MD Sedation:: MAC sedation Procedure:: Patient history was obtained and appropriate physical examination was performed. Patient's medications and allergies were reviewed. Informed consent was obtained after explaining the benefits, alternatives, and risks of the procedure including, but not limited to, bleeding, perforation, missed lesions, and adverse reaction to anesthesia medications. Patient was transported to endoscopy procedure room. Patient was connected to monitoring devices. Throughout the procedure the patient's blood pressure, pulse, and oxygen saturations were monitored continuously. Patient identification and planned procedure were verified by the staff. Patient was positioned in lateral decubitus position. Digital anorectal exam was performed. Variable stiffness Olympus colonoscope was inserted and advanced under direct visualization to the cecum. Adequacy of the colonic preparation was noted. The colonoscope was then slowly withdrawn while carefully examining the color, texture, anatomy, and integrity of the mucosoa circumferentially. Within the rectum retroflexion was performed. Colonoscope was then withdrawn. Impression: There was particulate liquid stool throughout the colon and some pasty stool adherent to the monet of the colon. High-volume trans colonoscopic irrigation and suctioning was performed which allowed for fair visualization. Within the cecum there were a couple of tiny diminutive polyps possibly consistent with early adenomas. These were removed with biopsy forceps. Previous polypectomy site was noted in the ascending colon. There was no evidence of any recurrent or residual polyp. However biopsies were obtained at the polypectomy scar. Near the hepatic flexure there was a small adenomatous appearing polyp removed with cold snare. In the descending colon there was tiny diminutive polyp removed with biopsy forceps. There was some sigmoid diverticulosis. In the rectosigmoid there were too numerous to count hyperplastic appearing polyps. Several of these larger ones were sampled with biopsy forceps. . Findings:: Polyps as noted above Previous ascending colon polypectomy site identified, no definite recurrence, biopsied Rare sigmoid diverticulosis Recommendations:: Follow-up colonoscopy pending pathology Complications:: None immediately apparent Estimated blood obtained (mL): 2 Colonoscopy Component Colonoscopy Component Was a colonoscopy performed during today's procedure?: Yes Recommended follow up colonoscopy of at least 10 years?: No If no, follow up colonoscopy recommended in ___ years?: See above Reason for not recommending >/= 10 yr follow-up interval?: See above
[2024-10-21 11:19] VITALS: BP 89/49; PULSE 48; RESP 16; TEMP 36.2; O2SAT 97
[2024-10-21 11:29] VITALS: BP 96/49; PULSE 49; RESP 16; O2SAT 92
[2024-10-21 11:39] VITALS: BP 105/58; PULSE 46; RESP 17; O2SAT 92
[2024-10-21 11:49] VITALS: BP 110/60; PULSE 53; RESP 18; O2SAT 95
== END | disposition home or self-care (01) ==
PROVIDERS: PCP Family Medicine; Visit Provider Surgery
PROC: 0DJD8ZZ Inspection of Lower Intestinal Tract, Via Natural or Artificial Opening Endoscopic (ICD-10-PCS; CPT 45380; principal; 2024-10-21 07:30)
DX: D12.0 Benign neoplasm of cecum (principal); D12.4 Benign neoplasm of descending colon; K63.5 Polyp of colon; D12.3 Benign neoplasm of transverse colon; K57.30 Diverticulosis of large intestine without perforation or abscess without bleeding; I25.10 Atherosclerotic heart disease of native coronary artery without angina pectoris; F17.210 Nicotine dependence, cigarettes, uncomplicated; E78.5 Hyperlipidemia, unspecified; I48.91 Unspecified atrial fibrillation; I12.9 Hypertensive chronic kidney disease with stage 1 through stage 4 chronic kidney disease, or unspecified chronic kidney disease; N18.9 Chronic kidney disease, unspecified; Z79.82 Long term (current) use of aspirin; Z79.01 Long term (current) use of anticoagulants; Z86.0101 Personal history of adenomatous and serrated colon polyps
CPT/HCPCS: 45380; 45385; 88305; J2003; J2704

== ENCOUNTER 2024-12-30 12:05 | Emergency (ER) | payer MEDICARE, SELFPAY ==
--- OUTSIDE RECORDS SUMMARY | 2024-12-08 09:30 | XMS_ITS ---
Author Organization [facility] Address [address] [place] [phone] Care Team Providers Care Vice President Mission Integration Name Role Phone Milka Yates Primary Care Provider Allergies No Known Allergies Results Component Value Reference Range Notes P-Basic Metabolic Panel (BMP ) (Not yet reviewed by provider) Interpretation:chlor 110, gluc 110 Performing Lab: Notes/Report: Test performed by [facility] [address] [place], [place] [address] , [address], [place] [address] Chin Padilla MD, [facility] [employer] CLIA: [id number] Sodium 144 135-145 mmol/L Potassium 3.8 3.5-5.3 mmol/L Chloride 110 97-108 mmol/L CO2 24 20-32 mmol/L Glucose 110 65-99 mg/dL BUN 11 8-23 mg/dL Creatinine 1.08 0.70-1.30 mg/dL Calcium 8.8 8.6-10.4 mg/dL eGFR by Creatinine 69 >59 mL/min/1.73m2 P-Vitamin D 1,25-Dihydroxy a nd 25-Hydroxy (Not yet reviewed by provider) Interpretation:45.7 Performing Lab: Notes/Report: Test performed by [facility] [address] [place], [place] [address] , [address], [place] [address] Chin Padilla MD, [employer] CLIA: [id number] Vitamin D 25-Hydroxy 45.7 30.0-100.0 ng/mL Interpretation of Vitamin D 25 OH: < 20 ng/mL - Deficiency 20 - 29 ng/mL - Insufficiency 30 - 100 ng/mL - Sufficiency > 100 ng/mL - Super-therapeutic- toxicity may occur above this level. Clinical correlation required. Vitamin D, 1, 25 Dihydroxy 56.8 19.9-79.3 pg/m L CBC Fingerstick (in house) Reviewed date:12/08/2024 04:54:43 PM Interpretation: Performing Lab: Notes/Report: wbc 9.2 3.5 - 10 lym 33.6% 15 - 50 mid 5.2% 2 - 15 gran 61.2% 35 - 80 rbc 3.69 3.5 - 5.5 hgb 12.0 11.5 - 16.5 hct 35.4 35 - 55 mcv 95.7 75 - 100 mch 32.5 25 - 35 mchc 34.0 31 - 38 plat 215 100 - 400 REASON FOR VISIT 4 month f/u Medications Medication SIG (Take, Route, Frequency, Duration) Notes Start Date End Date Status Donepezil HCl 10 MG 1 tablet at bedtime Orally Once a day; Duration: 30 days 12/08/2024 Active hydroCHLOROthiazide 12.5 MG 1 tab(s) ora lly once a day prn; Duration: 30 day(s) 12/28/2018 Not-Taking Oxazepam 15 MG 1 cap(s) orally 3 times a day prn 11/22/2019 Not-Taking Align 4 MG 1 cap(s) orally once a day; Duration: 28 day(s) 01/08/2021 Not-Taking FiberCon 625 MG 2 orally once daily 01/08/2021 Not-Taking Tretinoin 0.025 % 1 mya applied topically once a day (at bedtime); Duration: 30 day(s) 09/10/2022 Not-Taking Bisoprolol Fumarate 5 MG 1/2 tab(s) oral ly once a day; Duration: 90 days Active Citalopram Hydrobromide 20 MG 1 tab(s) o rally once a day; Duration: 90 days Active Ezetimibe 10 MG 1 tablet Orally Once a day; Duration: 90 days Active Vitamin D3 50 MCG (1999 UT) 1 tab(s) ora lly once a day; Duration: 30 day(s) 06/10/2013 Active Xarelto 15 MG 1 tablet Orally Once a day; Duration: 90 days Active Trulance 3 MG 1 tab(s) orally once a day; Duration: 90 days 08/20/2022 Active LORazepam 0.5 MG 1 tab(s) orally 3 times a day as needed Active Atorvastatin Calcium 20 MG 1 tab(s) oral ly once a day; Duration: 30 days Active B-12 1000 MCG 1 tab(s) orally once a day; Duration: 30 day(s) 06/10/2013 Active Aspirin 81 81 MG 1 tablet Orally Once a day Active Advil PM 200-25 MG 1capsules at bedtime as needed Orally Once a day as needed Active dilTIAZem HCl ER 120 MG 1 capsule Orally once a day Active Vital Signs Weight 177.4 lbs 12/08/2024 Blood pressure systolic 124 mm Hg 12/09/19 25 Blood pressure diastolic 60 mm Hg 025 Heart Rate 66 /min 12/08/2024 Height 68 in 12/08/2024 BMI 26.97 kg/m2 12/08/2024 Encounters Encounter Location Date Provider Diagnosis [facility] [facility] [address] [phone] 12/08/2024 Milka Yates Essential hypertensi on I10 ; Memory loss R41.3 ; Tobacco abuse Z72.0 ; History of coronary artery stent placement Z95.5 ; Imbalance R26.89 and BMI 26.0-26.9,adult Z68.26 Assessments Encounter Date Diagnosis (ICD Code) Assessment Notes Treatment Notes Treatment Clinical Notes Section Notes 12/08/2024 Essential hypertension (ICD-10 - I10) 12/08/2024 Memory loss (ICD-10 - R41.3) 12/08/2024 Tobacco abuse (ICD-10 - Z72.0) 12/08/2024 History of coronary artery stent placement (ICD-10 - Z95.5) 12/08/2024 Imbalance (ICD-10 - R26.89) 12/08/2024 BMI 26.0-26.9,adult (ICD-10 - Z68.26) Plan Of Treatment Medication Medication Name Sig Start Date Stop Date Notes Donepezil HCl 10 MG 1 tablet at bedtime Orally Once a day; Duration: 30 days 12/08/2024 Donepezil HCl 5 MG 1 tab(s) Orally At Bed Time 09/29/2024 Meclizine HCl 12.5 MG 1 tablet as needed Orally three times a day as needed 05/23/2024 Pending Test Test Name Order Date CT Scan : Chest, low dose 12/08/2024 P-Basic Metabolic Panel (BMP) 12/08/2024 P-Vitamin D 1,25-Dihydroxy and 25-Hydrox y 12/08/2024 Next Appt Details Follow Up: 4 Months, Reason: Provider Name:Milka Burch er, 04/10/2025 01:45:00 PM, [address], [address], [place], [place], [phone], Progress Notes * PNAKAJ GILLIAM CDOB:1945 (79 yo M)Acc No.[id number]:12/08/2024 Progress Notes Patient: PANKAJ CARRILLO Provider: Milka Yates M.D. :1945 A ge:79 Y S ex:Male Date:12/08/2024 Address:[place] [address], [id number] Subjective: * Chief Complaints: * 1 . 4 month f/u. * HPI: H PI: Pt here for a f/u. Pt states cecil vasquez wants to talk about medications. E NT/respiratory: c/o cough. c/o post nasal drainage. Pt states that cough and nasal drainage that started this week. Pt states the cough is productive and is milky looking. C ardiology: Pt here for a f/u Memory loss. Pt states cecil vasquez wants to talk about medications. N eurology: Pt here for a f/u Memory loss. Pt states cecil vasquez wants to talk about medications to see if he can go off some of them. * ROS: D ERMATOLOGY: no R telma. n o H obinna. G ASTROENTEROLOGY: no N ausea. n o V omiting. n o D iarrhea.? U ROLOGY: no D ifficulty urinating. n o B lood in urine. * Medical History: H ypercholestrolemia, COPD [Chronic obstructive pulmonary disease], Hypertension, 2018 flu vaccine [employer], COVID 19 VACC, Moderna Aug 2020. * Surgical History: c holecystectomy 2003, hernia repair 1956, right shoulder separation repair 1973, cataract, both eyes 2011, colonoscopy 06/2013, nevus with atypia of right shoulder 10/2014, cardiac stent placed-Dr Duke 11/2018, positive Cologuard 01/2022, Colonocopy, Allran, 15 polyps, screen q 2 years 05/2022, Colonoscopy Allran, tubular adenomas 05/20/24. * Hospitalization/Major Diagno stic Procedure: s ee above , [facility] 11/22/18. * Family History: F ather: , stroke, bladder [place]. M other: . M aternal Grand Mother: [place].?Siblings: alive. Mireya jackson: alive. 3 brother(s) , 2 sister(s) - healthy. 1 son(s) , 1 daughter(s) - healthy. . * Social History: C URRENT TOBACCO USE S moking Status: Patient does smoke, packs per day: 1, number of cigarettes per day: 20, Since age of: 7, Smoking preference: cigarettes. C affeine: yes, frequency:daily. Exercise: yes, hiking. Home smoke detector use: yes. Marital Status: . New since last visit: none. 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 Past smoking status: yes, PPD:1 , years:45 ,determination:. Occup. exposure: none. Recreational drug use: no. Alcohol: no. Travel ouside [place]: yes. * Medications: T aking dilTIAZem HCl ER 120 MG Capsule Extended Release 12 Hour 1 capsule Orally once a day , Taking Advil PM 200-25 MG Capsule 1capsules at bedtime as needed Orally Once a day as needed , Taking Aspirin 81 81 MG Tablet Delayed Release 1 tablet Orally Once a day , Taking B-12 1000 MCG Tablet 1 tab(s) orally once a day , Taking Atorvastatin Calcium 20 MG Tablet 1 tab(s) orally once a day , Taking LORazepam 0.5 MG Tablet 1 tab(s) orally 3 times a day as needed , Taking Vitamin D3 50 MCG (2000 UT) Tablet 1 tab(s) orally once a day , Taking Ezetimibe 10 MG Tablet 1 tablet Orally Once a day , Taking Citalopram Hydrobromide 20 MG Tablet 1 tab(s) orally once a day , Taking Meclizine HCl 12.5 MG Tablet 1 tablet as needed Orally three times a day as needed , Taking Trulance 3 MG Tablet 1 tab(s) orally once a day , Taking Xarelto 15 MG Tablet 1 tablet Orally Once a day , Taking Donepezil HCl 5 MG Tablet 1 tab(s) Orally At Bed Time , Taking Bisoprolol Fumarate 5 MG Tablet 1/2 tab(s) orally once a day , Not-Taking Tretinoin 0.025 % Cream 1 mya applied topically once a day (at bedtime) , Not-Taking FiberCon 625 MG Tablet 2 orally once daily , Not-Taking Align 4 MG Capsule 1 cap(s) orally once a day , Not-Taking Oxazepam 15 MG Capsule 1 cap(s) orally 3 times a day prn , Not-Taking hydroCHLOROthiazide 12.5 MG Tablet 1 tab(s) orally once a day prn , Discontinued Tylenol PM Extra Strength 1000 MG TABLET 1 Orally at bedtime as needed , Medication List reviewed and reconciled with the patient * Allergies: N .K.D.A. Objective: * Vitals: W t: 177.4, Temp: 98.4, BP: 124/60, HR: 66, O2 Sat: 95% on RA, Nurse: pe, Ht: 68, BMI:26.97. * Examination: G eneral Examination: General Appearance: N AD. H EENT: a ctinic keratoses of the scalp. O ral cavity: t ongue and mucosa dry. N krysten: s upple, no lymphadenopathy. C hest: n ormal shape and expansion. H eart: sinus bradycardia, 60. L ungs: c lear to auscultation. N eurologic Exam: n o focal deficits. P eripheral pulses: n ormal. B ack: n ontender . E xtremities: n o leg edema, varicosities present. Assessment: * Assessment: 1. E ssential hypertension - I10 (Primary) 2 . M jovi loss - R41.3 ? 3 . T obacco abuse - Z72.0 4 . H istory of coronary artery stent placement - Z95.5 5 . I mbalance - R26.89 6 . B ME 26.0-26.9,adult - Z68.26 Plan: * Treatment: Value Reference Range B UN 11 8-23 - mg/dL * C alcium 8.8 8.6-10.4 - mg/dL * C hloride 110 H 97-108 - mmol/L * C O2 24 20-32 - mmol/L * C reatinine 1.08 0.70-1.30 - mg/dL * G lucose 110 H 65-99 - mg/dL * P otassium 3.8 3.5-5.3 - mmol/L * S odium 144 135-145 - mmol/L * e GFR by Creatinine 69 >59 - mL/min/1.73m2 2.?Memory loss? Stop Donepezil HCl Tablet, 5 MG, 1 tab(s), Orally, At Bed Time;?Start Donepezil HCl Tablet, 10MG, 1 tablet at bedtime, Orally, Once a day, 30 days, 30, Refills 3.??3.?Tobacco abuse?Imaging: CT Scan : Chest, low dose4.?History of coronary artery stent placement?LAB: P-Vitamin D 1,25-Dihydroxy and 25-Hydroxy (Collection Date & Time - 12/08/2024 03:15 PM)?45.7* Value Reference Range V itamin D 25-Hydroxy 45.7 30.0-100.0 - ng/mL * V itamin D, 1, 25 Dihydroxy 56.8 19.9-79.3 - pg /mL 5.?Imbalance? Stop Meclizine HCl Tablet, 12.5 MG, 1 tablet as needed, Orally, three times a day as needed.? * Labs: * L ab: CBC Fingerstick (in house) (Collection Date & Time - 12/08/2024) Value Reference Range w bc 9.2 3.5 - 10 * l ym 33.6% 15 - 50 * m id 5.2% 2 - 15 * g ran 61.2% 35 - 80 * r bc 3.69 3.5 - 5.5 * h gb 12.0 11.5 - 16.5 * h ct 35.4 35 - 55 * m cv 95.7 75 - 100 * m ch 32.5 25 - 35 * m chc 34.0 31 - 38 * p lat 215 100 - 400 * Thierno, Nata 12/08/2024 01:53:0 1 PM EDT > Provider reviewed results while patient in office. * Procedure Codes: G 2211 Complex e/[place], [address] CBC WITH AUTO DIFF, G8420 BMI<30 AND >=22 CALC & DOCU, G8950 PREHTN/HTN BP DOC INDCD F/U DOC, G8752 MOST RECENT SYSTOLIC BP < 140MM HG, G8754 MOST RECENT DIASTOLIC BP < 90MM HG * Follow Up: 4 Months * Images: Billing Information: * Visit Code: 62354 Office Visit, Est Pt., Level 4. * Procedure Codes: G2211 Complex e/[place]. [address] CBC WITH AUTO DIFF. G8420 BMI<30 AND >=22 CALC & DOCU. G8950 PREHTN/HTN BP DOC INDCD F/U DOC. G8752 MOST RECENT SYSTOLIC BP < 140MM HG. G8754 MOST RECENT DIASTOLIC BP < 90MM HG. * Electronic signature of Milka Yates MD on 12/30/2024 at 12:27 PM EDT Sign off status: Pending * Provider: Milka Yates M.D. Date: 0 12/08/2024 Generated for Keni ng/Fahajag/eTransmitting on: 0 12/30/2024 12:27 PM EDT History and Physical Notes * HPI (History of Present Illness) Category Sub-Category Detail Notes Category Not es ENT/respiratory cough Pt states th at cough and nasal drainage that started this week. Pt states the cough is productive and is milky looking post nasal drainage HPI Pt here for a f /u. Pt states he wants to talk about medications Examination Category Sub-Category Detail Notes Category Not es General Examination HEENT: actinic keratoses of the scalp Heart: sinus bradycardia, 6 0 Lungs: clear to auscultatio n Extremities: no leg edema, varico sities present General Appearance: NAD Neurologic Exam: no focal deficits Neck: supple, no lymphaden opathy Oral cavity: tongue and mucosa dr y Peripheral pulses: normal Back: nontender Chest: normal shape and exp ansion
--- OUTSIDE RECORDS SUMMARY | 2024-12-22 11:30 | XMS_ITS ---
[facility] Organization [facility] Address [address] [place] [phone] Care Team Providers Care Briquette Operator Name Role Phone Milka Yates Primary Care Provider Allergies No Known Allergies Results Component Value Reference Range Notes Glycohemoglobin A1c (in hous e) Reviewed date:12/23/2024 09:38:15 AM Interpretation: Performing Lab: Notes/Report: glycohemoglobin 5.6% 5 - 6.5 % REASON FOR VISIT dizziness Medications Medication SIG (Take, Route, Frequency, Duration) Notes Start Date End Date Status FiberCon 625 MG 2 orally once daily 01/08/2021 Not-Taking Oxazepam 15 MG 1 cap(s) orally 3 times a day prn 11/22/2019 Not-Taking Align 4 MG 1 cap(s) orally once a day; Duration: 28 day(s) 01/08/2021 Not-Taking hydroCHLOROthiazide 12.5 MG 1 tab(s) ora lly once a day prn; Duration: 30 day(s) 12/28/2018 Not-Taking Tretinoin 0.025 % 1 mya applied topically once a day (at bedtime); Duration: 30 day(s) 09/10/2022 Not-Taking Xarelto 15 MG 1 tablet Orally Once a day; Duration: 90 days Active Donepezil HCl 10 MG 1 tablet at bedtime Orally Once a day; Duration: 30 days 12/08/2024 Active Clopidogrel Bisulfate 75 mg TAKE 1 TABLET DAILY Active Ezetimibe 10 MG 1 tablet Orally Once a day; Duration: 90 days Active Atorvastatin Calcium 20 MG 1 tab(s) oral ly once a day; Duration: 30 days Active Vitamin D3 50 MCG (1999 UT) 1 tab(s) ora lly once a day; Duration: 30 day(s) 06/10/2013 Active LORazepam 0.5 MG 1 tab(s) orally 3 times a day as needed Active Citalopram Hydrobromide 20 MG 1 tab(s) o rally once a day; Duration: 90 days Active Trulance 3 MG 1 tab(s) orally once a day; Duration: 90 days 08/20/2022 Active B-12 1000 MCG 1 tab(s) orally once a day; Duration: 30 day(s) 06/10/2013 Active dilTIAZem HCl ER 120 MG 1 capsule Orally once a day Active Aspirin 81 81 MG 1 tablet Orally Once a day Active Advil PM 200-25 MG 1capsules at bedtime as needed Orally Once a day as needed Active Vital Signs Weight 171.6 lbs 12/22/2024 Blood pressure systolic 82 mm Hg 12/23/19 25 Blood pressure diastolic 50 standing mm Hg 12/22 Heart Rate 57 /min 12/22/2024 Height 68 in 12/22/2024 BMI 26.09 kg/m2 12/22/2024 Encounters Encounter Location Date Provider Diagnosis [facility] [address] [facility] [address] [place], [place] [phone] 12/22/2024 Milka Yates Symptomatic hypotension I95.9 and Mild dehydration E86.0 Assessments Encounter Date Diagnosis (ICD Code) Assessment Notes Treatment Notes Treatment Clinical Notes Section Notes 12/22/2024 Symptomatic hypotension (ICD-10 - I95.9) 12/22/2024 Mild dehydration (ICD-10 - E86.0) Plan Of Treatment Medication Medication Name Sig Start Date Stop Date Notes Bisoprolol Fumarate 5 MG 1/2 tab(s) orally once a day Next Appt Details Follow Up: 1 Week, Reason: Provider Name:Milka Burch er, 04/10/2025 01:45:00 PM, [address] [facility] [address] [facility], [address], [place], [place], [id number], Progress Notes * PANKAJ WHEELER CDOB:1945 (79 yo M)Acc No.[id number]:12/22/2024 Progress Notes Patient: PANKAJ CARRILLO Provider: Milka Yates M.D. :1945 A ge:79 Y S ex:Male Date:12/22/2024 Address:[place] [address], [id number] Subjective: * Chief Complaints: * 1 . Dizziness. * HPI: N eurology: The pt states he is having increased dizziness. Pt states when he gets up in the mornings he is fine but as the day progresses it get worse. Pt states the dizziness is worse with getting up from sitting and walking, but it will come down when he sits down to rest. 79 year old male presents with c/o Dizziness. Denies : headache. * ROS: D ERMATOLOGY: no R telma. n o H obinna. G ASTROENTEROLOGY: no N ausea. n o V omiting. n o D iarrhea.? U ROLOGY: no D ifficulty urinating. n o B lood in urine. * Medical History: H ypercholestrolemia, COPD [Chronic obstructive pulmonary disease], Hypertension, 2018 flu vaccine [employer], COVID 19 VACC, Moderna Jul/Aug 2020. * Surgical History: c holecystectomy 2003, hernia repair 1956, right shoulder separation repair 1973, cataract, both eyes 2011, colonoscopy 06/2013, nevus with atypia of right shoulder 10/2014, cardiac stent placed-Dr uDke 11/2018, positive Cologuard 01/2022, Colonocopy, Allran, 15 polyps, screen q 2 years 05/2022, Colonoscopy Allran, tubular adenomas 05/20/24. * Hospitalization/Major Diagno stic Procedure: s ee above , [facility] 11/22/18. * Family History: F ather: , stroke, bladder [place]. M other: . M aternal Grand Mother: [place].?Siblings: alive. C hildren: alive. 3 brother(s) , 2 sister(s) - [...] since last visit: none. 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 Past smoking status: yes, PPD:1 , years:45 [...] tab(s) orally once a day , Taking Citalopram Hydrobromide 20 MG Tablet 1 tab(s) orally once a day , Taking Trulance 3 MG Tablet 1 tab(s) orally once a day , Taking Xarelto 15 MG Tablet 1 tablet Orally Once a day , Taking Bisoprolol Fumarate 5 MG Tablet 1/2 tab(s) orally once a day , Taking Donepezil HCl 10 MG Tablet 1 tablet at bedtime Orally Once a day , Taking Ezetimibe 10 MG Tablet 1 tablet Orally Once a day , Taking Clopidogrel Bisulfate 75 mg Tablet TAKE 1 TABLET DAILY , Not-Taking Tretinoin 0.025 % Cream 1 mya applied topically once a day (at bedtime) , Not- Taking FiberCon 625 MG Tablet 2 orally once daily , Not-Taking Align 4 MG Capsule 1 cap(s) orally once a day , Not-Taking Oxazepam 15 MG Capsule 1 cap(s) orally 3 times a day prn , Not-Taking hydroCHLOROthiazide 12.5 MG Tablet 1 tab(s) orally once a day prn , Medication List reviewed and reconciled with the patient * Allergies: N .K.D.A. Objective: * Vitals: W t: 171.6, Temp: 98.2, BP: 82/54sitting,82/50 standing, HR: 57, O2 Sat: 98% on RA, Nurse: SALLY, Ht: 68, BMI:26.09. * Examination: G eneral Examination: General Appearance: [...] edema, varicosities present. Assessment: * Assessment: 1. S ymptomatic hypotension - I95.9 (Primary) 2 . M ild dehydration - E86.0? Plan: * Treatment: 2. M ild dehydration L AB: Glycohemoglobin A1c (in house) (Collection Date & Time - 12/22/2024) Value Reference Range g lycohemoglobin 5.6% 5 - 6.5 % * LaureltonEden leee L 12/22/2024 05 :05:08 PM EDT > Provider reviewed results while patient in office. * Procedure Codes: 3 6416 CAPILLARY BLOOD DRAW, 05019 GLYCATED HEMOGLOBIN TEST, Modifiers: QW * Follow Up: 1 Week * Images: Billing Information: * Visit Code: 37648 Office Visit, Est Pt., Level 4. * Procedure Codes: 00710 CAPILLARY BLOOD DRAW. 10031 GLYCATED HEMOGLOBIN TEST. Modifiers: QW * Electronic signature of Milka Yates MD on 12/30/2024 at 12:27 PM EDT Sign off status: Pending * Provider: Milka Yates M.D. Date: 12/22/2024 Generated for Feliberto saunders/Gilma/Lashaeitting on: 0 12/30/2024 12:27 PM EDT History and Physical Notes * HPI (History of Present Illness) Category Sub-Category Detail Notes Category Not es Neurology headache Dizziness Examination Category Sub-Category Detail Notes Category Not [...]
--- OUTSIDE RECORDS SUMMARY | 2024-12-29 12:00 | XMS_ITS ---
[facility] Address [address] [place] [id number] Care Team Providers Care Farmer Cash Grain Name Role Phone Milka Yates Primary Care Provider [phone] Allergies No Known Allergies REASON FOR VISIT 1 wk f/u Medications [...] 90 days Active Vitamin D3 50 MCG (1999) 1 tab(s) ora lly once a day; [...] 12/29/2024 Encounters Encounter Location Date Provider Diagnosis [facility] 1210 [facility] 36 [facility] [address] [place] [id number] 12/29/2024 Milka Yates Symptomatic hypotension I95.9 Assessments Encounter Date Diagnosis (ICD Code) Assessment Notes Treatment Notes Treatment Clinical Notes Section Notes 12/29/2024 Symptomatic hypotension (ICD-10 - I95.9) Plan Of Treatment Pending Test Test Name Order Date Holter Monitor- 48 hour 12/29/2024 P-Basic Metabolic Panel (BMP) 12/29/2024 Next Appt Details Follow Up: 4 Weeks, Reason: Provider Name:Milka Burch er, 04/10/2025 01:45:00 PM, 1210 [facility] 36 [facility], [address], [place], [phone], Progress Notes * PANKAJ WHEELER CDOB:1945 (79 yo M)Acc No.[id number]:12/29/2024 Progress Notes Patient: PANKAJ CARRILLO Provider: Milka Yates M.D. :1945 A ge:79 Y S ex:Male Date:12/29/2024 Address: [place], [id number] Subjective: * Chief Complaints: * 1 . [...] since last visit: none. 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 Past smoking status: yes, PPD:1 [...] hypotension - I95.9 (Primary) Plan: * Treatment: * Follow Up: 4 Weeks * Images: Billing Information: * Visit Code: 56237 Office Visit, Est Pt., Level 3. * Procedure Codes: * Electronic signature of Milka Yates MD on 12/30/2024 at 12:27 PM EDT Sign off status: Pending * Provider: Milka Yates M.D. Date: 12/29/2024 Generated for Feliberto saunders/Gilma/eTransmitting on: 12/30/2024 12:27 PM EDT History and Physical [...]
--- NOTE | 2024-12-30 12:17 | HMH.EDGENADL ---
Discharge Plan Prescriptions Prescriptions: No Action aspirin [Adult Low Dose Aspirin] 81 mg tablet,delayed release (DR/EC) 81 mg PO DAILY Qty: 30 5RF atorvastatin 20 mg tablet 20 mg PO DAILY Qty: 90 3RF donepezil 5 mg tablet 5 mg PO HS Patient Comments: TAKE 1 TABLET BY MOUTH AT BEDTIME ezetimibe [Zetia] 10 mg tablet 10 mg PO DAILY vitamin B complex [B Complex-Vitamin B12] Tablet 1 tab PO HS ciclopirox 8 % solution 1 applic topical DAILY 90 Days Qty: 6.6 3RF Rx Instructions: apply over previous coat; remove with alcohol every 7 days and file down nail lorazepam [Ativan] 0.5 mg tablet 0.5 mg PO BID PRN (Reason: anxiety) Qty: 60 2RF sodium,potassium,mag sulfates [Suprep Bowel Prep Kit] 17.5-3.13-1.6 gram recon soln See Rx Instructions PO .COMPLEX Qty: 354 0RF Rx Instructions: DILUTE; drink full amount early evening before AND next morning at least 2 hr before procedure; follow w 960 mL water PO bisoprolol fumarate 5 MG tablet 2.5 mg PO DAILY rivaroxaban 15 MG tablet 15 mg PO DAILY citalopram [Celexa] 20 mg tablet 20 mg PO DAILY diltiazem HCl [Cardizem CD] 120 mg Capsule,Extended Release 24hr 120 mg PO DAILY meclizine 12.5 mg Tablet 12.5 mg PO TID PRN (Reason: .) cholecalciferol (vitamin D3) [Vitamin D3] 125 mcg (5,000 unit) Tablet 125 mcg PO DAILY Trulance 3 mg Tablet 3 mg PO DAILY Neuriva Original 50-50 mg Tablet,Chewable 1 tab PO DAILY Referrals Follow up/Referrals: Natalie Yates MD [Primary Care Provider, Medical] - See instructions Print Language Print Language: Latvian Discharge ED Provider: Rodrigo Carrington Adult HPI General Stated complaint: coughing alot Time Seen by Provider: 12/30/24 12:17 Related Data Home Medications ?Medication ?Instructions ?Recorded ?Confirmed ezetimibe 10 mg tablet (Zetia) 10 mg PO DAILY Cholesterol 11/09/18 10/26/24 vitamin B complex (B 1 tab PO HS Supplement 11/19/18 10/26/24 Complex-Vitamin B12 tablet) bisoprolol fumarate 5 mg tablet 2.5 mg PO DAILY Heartburn 09/16/19 10/26/24 rivaroxaban 15 mg tablet 15 mg PO DAILY anticoag 09/16/19 10/26/24 citalopram 20 mg tablet (Celexa) 20 mg PO DAILY Depression 05/05/22 10/26/24 donepezil 5 mg tablet 5 mg PO HS 10/20/24 10/26/24 cholecalciferol (vitamin D3) 125 125 mcg PO DAILY 10/21/24 10/26/24 mcg (5,000 unit) tablet (Vitamin D3) coffee extract 50 mg-phosphatidyl 1 tab PO DAILY 10/21/24 10/26/24 serine 50 mg chewable tablet (Neuriva Original) diltiazem HCl 120 mg 120 mg PO DAILY 10/21/24 10/26/24 capsule,extended release 24 hr (Cardizem CD) meclizine 12.5 mg tablet 12.5 mg PO TID PRN . 10/21/24 10/26/24 plecanatide 3 mg tablet (Trulance) 3 mg PO DAILY 10/21/24 10/26/24 Previous Rx's ?Medication ?Instructions ?Recorded ciclopirox 8 % topical solution 1 applic topical DAILY toenail 01/07/24 fungus 3 months #6.6 mL aspirin 81 mg tablet,delayed 81 mg PO DAILY #30 tabs 04/07/24 release (Adult Low Dose Aspirin) atorvastatin 20 mg tablet 20 mg PO DAILY #90 tabs 04/07/24 sodium,potassium,mag sulfates 17.5 See Rx Instructions PO .COMPLEX 09/30/24 gram-3.13 gram-1.6 gram oral soln #354 mL (Suprep Bowel Prep Kit) lorazepam 0.5 mg tablet (Ativan) 0.5 mg PO BID PRN anxiety #60 tabs 10/26/24 Allergies Allergy/AdvReac Type Severity Reaction Status Date / Time No Known Allergies Allergy Verified 10/26/24 10:35 [facility] Disclaimer: The information contained in this section may have been updated after the patient was seen, as this information can be updated by other users. Medical History Pre-op exam Depression Anxiety Hard of hearing History of cataract Major depressive disorder Generalized anxiety disorder Stenosis of carotid artery Carotid bruit present MCC current use of anticoagulant Carotid artery stenosis Chronic a-fib CAD (coronary artery disease) HTN (hypertension) Tobacco use Hyperlipidemia Surgical History History of colonoscopy History of hernia surgery H/O arthroscopy of shoulder Stented coronary artery Family History Other Cancer Coronary artery disease Stroke Social History Smoking Status: Current every day smoker tobacco type: cigarettes packs per day: 1 years smoked: 60 alcohol intake: never substance use type: denies use current occupational status: retired Travel in the last 8 weeks?: None number of children: 0 caffeine: Yes Other Medical History Have you received the Flu Vaccine for this season: No Have you received the Pneumonia Vaccine: Yes ROS Obtained: Yes Systems reviewed as appropriate & no additional complaints except as documented Physical Exam General General appearance: alert and in no apparent distress Head Head exam: atraumatic and normal inspection Eye Eye exam: Present normal appearance, PERRL and EOMI ENT ENT exam: Present normal exam, normal oropharynx and mucous membranes moist Neck Neck exam: Present normal inspection, full ROM and trachea midline; Absent lymphadenopathy Chest Chest inspection: Present normal inspection and symmetric chest wall rise Respiratory Respiratory exam: Present normal lung sounds bilaterally; Absent accessory muscle use Cardiovascular Cardiovascular exam: Present regular rate, normal rhythm, normal heart sounds, +S1 and +S2 Abdominal Exam Abdominal exam: Present soft and normal bowel sounds; Absent tenderness, guarding or rebound Extremities Exam Extremities exam: Present normal inspection and full ROM Neurological Exam Neurological exam: Present alert, oriented X3 and CN II-XII intact Psychiatric Psychiatric exam: Present normal affect and normal mood Skin Skin exam: Present warm, dry and normal color Lymphatic Lymphatic Findings: no adenopathy Medical Decision Making Medical Records Screening: Per USPSTF and CDC recommendations, given the prevalence of disease in our region, it is our hospital?s policy to screen for HIV and viral Hepatitis for all patients aged 18 and over and those with ongoing risk factors. Medical Decision Narrative: In summary patient is a [age, sex] who presents to the emergency department for evaluation of [complaint]. Patient is [hemodynamically stable/unstable] upon arrival, [febrile/afebrile]. [Unremarkable physical exam, nonfocal exam versus focal remarkable exam]. Differential diagnosis includes [DDx]. Initial workup will be conducted with [hematologic labs, imaging, respiratory swab, describe workup]. Initial interventions include [crystalloid bolus, medications, p.o. challenge, etc.] initial workup reviewed by me [hematologic labs are remarkable for... Imaging remarkable for... Urinalysis remarkable for]. Upon repeat evaluation [patient had acceptable resolution of symptoms, had persistent pain for which additional interventions were conducted (describe interventions), tolerated p.o., was ambulatory, etc.]. Given this [patient is appropriate for discharge at this time and will be discharged with a prescription for... The case was discussed with hospital medicine regarding management and they will admit the patient their service for continued evaluation at this time... Etc.] Places where you can increase complexity: I informally interpreted the patient's chest x-ray or CT read and is remarkable for... Documenting what the case monitor shows with rate and rhythm Consideration of test but deferring. Ex: I considered chest x-ray on this patient however given that they have no oxygen requirement and are clear to auscultation all lung mcnamara will be deferred. Social determinants of health: Given that patient is undomiciled increases complexity. Given that patient has polysubstance abuse compounds all aspects of care
--- NOTE | 2024-12-30 12:20 | PC.NURSE ---
Patient was registered for an ED visit but was unsure why. Patient states office told him to come here today. After calling office they state he was suppose to come here for a holter monitor not to be checked in to the ED. This RN spoke with registration and they state they would not be able to take patient off the tracker. Patient was not seen in ED by a provider. patient was d/c and sent to registration to be registered for his outpatient holter monitor.
[2024-12-30 12:23] VITALS: BP 0/0; PULSE 0; RESP 0; TEMP -17.7; TEMP 0
--- OUTSIDE RECORDS SUMMARY | 2024-12-30 12:27 | XMS_ITS | Clinical Summary ---
Author Organization Healthcare Address [address] [place] [address] Care Team Providers Care Tire Spotter Name Role Phone Unavailable Primary Care Provider Unavailabl e Social History Tobacco Use Types Packs/Day Years Used Date Smoking Tobacco: Never Assessed Sex and Gender Information Value Date Recorded Sex Assigned at Not on file Legal Sex Male 6:55 PM EDT Gender Identity Not on file Sexual Orientation Not on file Plan of Treatment Not on file Insurance [id number] MEDICARE
--- OUTSIDE RECORDS SUMMARY | 2024-12-30 12:28 | XMS_ITS | Patient Health Record ---
Author Organization [facility] Address [address] [place] [id number] Care Team Providers Care Industrial Analyst Name Role Phone Milka Yates Primary Care Provider Allergies No Known Allergies Results Component Value Reference Range Notes P-Basic Metabolic Panel (BMP ) (Not yet reviewed by provider) Interpretation:chlor 110, gluc 110 Performing Lab: Notes/Report: Test performed by [facility] [address] [place] [address] , [address], [place] [address] Chin Padilla MD, Powerhouse Operator CLIA: [id number] Sodium 144 135-145 mmol/L Potassium 3.8 3.5-5.3 mmol/L Chloride 110 97-108 mmol/L CO2 24 20-32 mmol/L Glucose 110 65-99 mg/dL BUN 11 8-23 mg/dL Creatinine 1.08 0.70-1.30 mg/dL Calcium 8.8 8.6-10.4 mg/dL eGFR by Creatinine 69 >59 mL/min/1.73m2 P-Vitamin D 1,25-Dihydroxy a nd 25-Hydroxy (Not yet reviewed by provider) Interpretation:45.7 Performing Lab: Notes/Report: Test performed by [facility] [address] [place] [address] [address], [place] [address] Chin Padilla MD, Powerhouse Operator CLIA: [id number] Vitamin D 25-Hydroxy 45.7 30.0-100.0 ng/mL Interpretation [...] - 38 plat 215 100 - 400 Glycohemoglobin A1c (in hous e) Reviewed date:12/23/2024 09:38:15 AM Interpretation: Performing Lab: Notes/Report: glycohemoglobin 5.6% 5 - 6.5 % P-TSH Reviewed date:10/07/2024 12:12:22 PM Interpretation:Normal Performing Lab: Notes/Report: Test performed by [facility] [address] [place] [address] , [address], [place] [address] Chin Padilla MD, Powerhouse Operator CLIA: [id number] TSH 1.05 0.43-5.25 mU/L P-Comprehensive Metabolic Pa greg (CMP) Reviewed date:10/07/2024 12:12:22 PM Interpretation:Normal Performing Lab: Notes/Report: Test performed by [facility] [address] [place] [address] , [address], [place] [address] Chin Padilla MD, Powerhouse Operator CLIA: [id number] Sodium 142 135-145 mmol/L Potassium 4.2 3.5-5.3 mmol/L Chloride 107 97-108 mmol/L CO2 24 22-32 mmol/L Glucose 100 65-99 mg/dL BUN 10 8-23 mg/dL Creatinine 1.10 0.70-1.30 mg/dL Calcium 9.1 8.6-10.4 mg/dL eGFR by Creatinine 67 >59 mL/min/1.73m2 Protein 6.3 6.0-8.3 g/dL Albumin 4.4 3.5-5.3 g/dL Alkaline Phosphatase 95 40-129 IU/L ALT (SGPT) 18 <5-55 IU/L AST (SGOT) 23 <5-46 IU/L Bilirubin, Total 0.4 <0.2-1.2 mg/dL A/G Ratio 2.3 1.1-2.5 P-Vitamin B12 Reviewed date:10/07/2024 12:12:22 PM Interpretation:satisfacotry Performing Lab: Notes/Report: Test performed by [facility] [address] [place], [place] [address] [place] , [address], [place] [address] Chin Padilla MD, Powerhouse Operator CLIA: [id number] Vitamin B12 7285 450-2444 pg/mL CBC Venipuncture (in house) Reviewed date:09/30/2024 08:38:04 AM Interpretation: Performing Lab: Notes/Report: wbc 9.2 3.5 - 10 lymph 27.1% 15 - 50 mid 7.1% 2 - 15 gran 65.8% 35 - 80 rbc 3.80 3.5 - 5.5 hgb 12.4 11.5 - 16.5 hct 36.7 35 - 55 mcv 96.5 75 - 100 mch 32.7 25 - 35 mchc 33.9 31 - 38 platlet 190 100 - 400 CBC Venipuncture (in house) Reviewed date:05/25/2024 01:18:01 PM Interpretation:Normal Performing Lab: Notes/Report: Normal wbc 8.5 3.5 - 10 lymph 27.0% 15 - 50 mid 6.9% 2 - 15 gran 66.1% 35 - 80 rbc 4.48 3.5 - 5.5 hgb 14.4 11.5 - 16.5 hct 42.9 35 - 55 mcv 95.5 75 - 100 mch 32.1 25 - 35 mchc 33.6 31 - 38 platlet 208 100 - 400 P-Comprehensive Metabolic Pa greg (CMP) Reviewed date:05/25/2024 01:18:01 PM Interpretation:gluc 107, Cr 1.39, gfr 51 Performing Lab: Notes/Report: Test performed by [facility] [address] [place] [address] , [address], [place] [address] Chin Padilla MD, Powerhouse Operator CLIA: [id number] Sodium 141 135-145 mmol/L Potassium 4.7 3.5-5.3 mmol/L Chloride 106 97-108 mmol/L CO2 23 22-32 mmol/L Glucose 107 65-99 mg/dL BUN 10 8-23 mg/dL Creatinine 1.39 0.70-1.30 mg/dL Calcium 10.0 8.6-10.4 mg/dL eGFR by Creatinine 51 >59 mL/min/1.73m2 Protein 6.7 6.0-8.3 g/dL Albumin 4.3 3.5-5.3 g/dL Alkaline Phosphatase 107 40-129 IU/L ALT (SGPT) 18 <5-55 IU/L AST (SGOT) 22 <5-46 IU/L Bilirubin, Total 0.6 <0.2-1.2 mg/dL A/G Ratio 1.8 1.1-2.5 P-TSH Reviewed date:05/25/2024 01:18:01 PM Interpretation:Normal Performing Lab: Notes/Report: Test performed by [facility], [address] , [place] [address] Chin Padilla MD, Powerhouse Operator CLIA: [id number] TSH 2.03 0.43-5.25 mU/L EKG Reviewed date:05/25/2024 03:56:02 PM Interpretation:Abnormal Performing Lab: Notes/Report: Abnormal Medications Medication SIG (Take, Route, Frequency, Duration) Notes Start Date End Date Status B-12 1000 MCG 1 tab(s) orally once a day; Duration: 30 day(s) 06/10/2013 Active FiberCon 625 MG 2 orally once daily 01/08/2021 Not-Taking Align 4 MG 1 cap(s) orally once a day; Duration: 28 day(s) 01/08/2021 Not-Taking Advil PM 200-25 MG 1capsules at bedtime as needed Orally Once a day as needed Active Clopidogrel Bisulfate 75 mg TAKE 1 TABLET DAILY Active Aspirin 81 81 MG 1 tablet Orally Once a day Active Tretinoin 0.025 % 1 mya applied topically once a day (at bedtime); Duration: 30 day(s) 09/10/2022 Not-Taking Oxazepam 15 MG 1 cap(s) orally 3 times a day prn 11/22/2019 Not-Taking hydroCHLOROthiazide 12.5 MG 1 tab(s) ora lly once a day prn; Duration: 30 day(s) 12/28/2018 Not-Taking Vitamin D3 50 MCG (1999 UT) 1 tab(s) ora lly once a day; Duration: 30 day(s) 06/10/2013 Active Citalopram Hydrobromide 20 MG 1 tab(s) o rally once a day; Duration: 90 days Active Atorvastatin Calcium 20 MG 1 tab(s) oral ly once a day; Duration: 30 days Active LORazepam 0.5 MG 1 tab(s) orally 3 times a day as needed Active Donepezil HCl 10 MG 1 tablet at bedtime Orally Once a day; Duration: 30 days 12/08/2024 Active dilTIAZem HCl ER 120 MG 1 capsule Orally once a day Active Ezetimibe 10 MG 1 tablet Orally Once a day; Duration: 90 days Active Trulance 3 MG 1 tab(s) orally once a day; Duration: 90 days 08/20/2022 Active Xarelto 15 MG 1 tablet Orally Once a day; Duration: 90 days Active Immunizations Vaccine Route Administration Date Status Comme nts COVID 19 Moderna Unknown 07/18/2020 Administered COVID 19 Moderna Unknown 08/15/2020 Administered COVID 19 Moderna Unknown 04/29/2021 Administered COVID 19 Moderna Unknown 09/17/2021 Administered Fluzone High Dose (65yr and older) IM Intramuscular 03/15/2013 Administered Fluzone High Dose (65yr and older) IM Intramuscular 05/02/2014 Administered Fluzone High Dose (65yr and older) IM Intramuscular 04/28/2016 Administered Fluzone High Dose (65yr and older) IM Intramuscular 03/02/2017 Administered Fluzone High Dose (65yr and older) IM Intramuscular 04/19/2019 Administered Fluzone High Dose (65yr and older) IM Intramuscular 02/14/2020 Administered Fluzone High Dose (65yr and older) IM Intramuscular 05/08/2021 Administered Fluzone High Dose (65yr and older) IM Intramuscular 04/16/2022 Administered Fluzone High Dose (65yr and older) IM Intramuscular 04/23/2023 Administered Fluzone High Dose (65yr and older) IM Intramuscular 03/14/2024 Administered H1N1 flu vaccine IM Intramuscular 05/16/2009 Administered PNEUMOVAX 23 VACCINE IM Intramuscular 02/28/2009 Administe red PNEUMOVAX 23 VACCINE IM Intramuscular 02/14/2020 Administe red Prevnar (PCV13) IM Intramuscular 11/28/2014 Administered Shingrix IM Intramuscular 12/30/2018 Administered Tetanus Tdap-Adacel (over 7yrs) IM Intramuscular 07/14/2018 Administered tuberculin (ppd) ID Intradermal 06/14/2007 Administered xFlu shot-36 months and older IM Intramuscular 06/09/2007 Administered xFlu shot-36 months and older IM Intramuscular 03/22/2008 Administered xFlu shot-36 months and older IM Intramuscular 02/28/2009 Administered xFlu shot-36 months and older IM Intramuscular 04/02/2010 Administered xFlu shot-36 months and older IM Intramuscular 01/22/2012 Administered xFluzone (6mos and older)-trivalent IM Intramuscular 05/27/2011 Administered Problems Problem Type SNOMED Code ICD Code Onset Dates Problem Status W/U Status Risk Notes Problem Tobacco abuse (3883922022) Tobacco abuse (Z72.0) Active confirmed Problem Essential hypertension (67555478) Essential hypertension (I10) Active confirmed Problem Multiple pulmonary nodules (761751844) Pulmonary nodules (R91.8) Active confirmed Problem Cardiac arrhythmia (920108859) Dysrhythmia (I49.9) Active confirmed Problem Sinus bradycardia (38410598) Sinus bradycardia (R00.1) Active confirmed Problem Memory loss (79452711) Memory loss (R41.3) Active confirmed Problem Pure hypercholesterolemia (137309320) Pure hypercholesterolemia (E78.0) Active confirmed Problem Persistent atrial fibrillation (998417163) Persistent atrial fibrillation (I48.1) Active confirmed Problem Constipation by delayed colonic transit (85791264) Constipation by delayed colonic transit (K59.01) Active confirmed Problem History of polyp of colon (situation) (323025222) History of colon polyps (Z86.010) Active confirmed Problem Atherosclerotic hear t disease of [place] coronary artery without angina pectoris (155516344961739) 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) Active confirmed Problem History of atrial fibrillation (638387229) History of atrial fibrillation (Z86.79) Active confirmed Problem COPD - Chronic obstructive pulmonary disease (91945763) Chronic obstructive pulmonary disease, unspecified COPD type (J44.9) Active confirmed Problem Multiple actinic keratoses (disorder) (877390087) Actinic keratoses (L57.0) Active confirmed Problem Abnormal gait (96741328) Imbalance (R26.89) Active confirmed Problem Carpal tunnel syndrome of left wrist (885673143287795) Carpal tunnel syndrome of left wrist (G56.02) Active confirmed Problem Adjustment disorder with mixed emotional features (56503368) Situational mixed anxiety and depressive disorder (F43.23) Active confirmed Problem Occlusion and stenosis of multiple and bilateral cerebral arteries (302441204) Bilateral carotid artery stenosis (I65.23) Active confirmed Problem Pure hypercholesterolemia (176110883) Pure hypercholesterolemia, unspecified (E78.00) Active confirmed Problem Benign prostatic hypertrophy without outflow obstruction (387200762) Benign prostatic hyperplasia without lower urinary tract symptoms (N40.0) Active confirmed Problem History of placement of stent for coronary artery disease (situation) (979684228) History of coronary artery stent placement (Z95.5) Active confirmed Problem Squamous cell carcinoma of external ear, 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 Problem Localized, primary osteoarthritis of the hand (175391185) Arthropathy of hand (M19.049) Active confirmed Problem Atherosclerotic hear t disease of [place] coronary artery without angina pectoris (525613515424649) Coronary artery disease involving [place] heart, angina presence unspecified, unspecified vessel or lesion type (I25.10) Active confirmed Problem Hidradenitis (61881575) Left axillary hidradenitis (L73.2) Active confirmed Problem Lumbar sprain (806938556) Sprain of low back, initial encounter (S33.5XXA) Active confirmed Problem Extrapyramidal movements (462406816) 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) Active confirmed Vital Signs Heart Rate 76 /min 12/29/2024 Blood pressure diastolic 70 mm Hg 12/29/2024 Height 68 in 12/29/2024 Blood pressure systolic 120 mm Hg 12/29/2024 Weight 170.8 lbs 12/29/2024 BMI 25.97 kg/m2 12/29/2024 Encounters Encounter Location Date Provider Diagnosis [facility] [address] [facility] [address] [place] [id number] 03/07/2024 Milka Yates Sprain of low back, initial encounter S[facility].5XXA [facility] [address] [id number] 03/14/2024 Milka Yates Acute right-sided lo w back pain, unspecified whether sciatica present M54.50 and Encounter for immunization Z23 [facility] [address] [id number] 05/23/2024 Milka Yates Imbalance R26.89 ; Bilateral carotid artery stenosis I65.23 ; Tobacco abuse Z72.0 ; History of colon polyps Z86.010 ; Essential hypertension I10 and History of atrial fibrillation Z86.79 [facility] [address] [id number] 06/10/2024 Milka Yates Essential hypertensi on I10 ; Arteriosclerotic cardiovascular disease (ASCVD) I25.10 ; Imbalance R26.89 and History of coronary artery stent placement Z95.5 [facility] [address] [id number] 12/08/2024 Milka Yates Essential hypertensi on I10 ; Memory loss R41.3 ; Tobacco abuse Z72.0 ; History of coronary artery stent placement Z95.5 ; Imbalance R26.89 and BMI 26.0-26.9,adult Z68.26 [facility] [address] [id number] 12/22/2024 Milka Yates Symptomatic hypotens ion I95.9 and Mild dehydration E86.0 [facility] [address] [id number] 12/29/2024 Milka Yates Symptomatic hypotens ion I95.9 [facility] [address] [id number] 09/29/2024 Milka Yates Memory loss R41.3 ; Chronic obstructive pulmonary disease, unspecified COPD type J44.9 ; History of coronary artery stent placement Z95.5 ; Tobacco abuse Z72.0 ; Arteriosclerotic cardiovascular disease (ASCVD) I25.10 and BMI 27.0-27.9,adult Z68.27 [facility] [address] [place], [place] [id number] 05/25/2024 Milka Yatse Dysrhythmia I49.9 [facility] [address] [place], [place] [id number] 08/15/2024 Milka Yates Imbalance R26.89 [facility] [address] [place], [place] [id number] 08/30/2024 Milka Yates Constipation by bang yed colonic transit K59.01 [facility] [address] [place], [place] [id number] 08/31/2024 Milka Yates Constipation by bang yed colonic transit K59.01 [facility] [address] [place], [place] [id number] 12/13/2024 Milka Yates Assessments Encounter Date Diagnosis (ICD Code) Assessment Notes Treatment Notes Treatment Clinical Notes Section Notes 03/07/2024 Sprain of low back, initial encounter (ICD-10 - S33.5XXA) 03/14/2024 Encounter for immunization (ICD-10 - Z23) 03/14/2024 Acute right-sided low back pain, unspecified whether sciatica present (ICD-10 - M54.50) 05/23/2024 Imbalance (ICD-10 - R26.89) 05/23/2024 Bilateral carotid artery stenosis (ICD-10 - I65.23) 05/25/2024 Dysrhythmia (ICD-10 - I49.9) 06/10/2024 Essential hypertension (ICD-10 - I10) continue current therapy 06/10/2024 Arteriosclerotic cardiovascular disease (ASCVD) (ICD-10 - I25.10) 08/15/2024 Imbalance (ICD-10 - R26.89) 08/30/2024 Constipation by delayed colonic transit (ICD-10 - K59.01) 08/31/2024 Constipation by delayed colonic transit (ICD-10 - K59.01) 09/29/2024 Memory loss (ICD-10 - R41.3) 09/29/2024 Chronic obstructive pulmonary disease, unspecified COPD type (ICD-10 - J44.9) 12/08/2024 Essential hypertension (ICD-10 - I10) 12/08/2024 Memory loss (ICD-10 - R41.3) 12/22/2024 Mild dehydration (ICD-10 - E86.0) 12/22/2024 Symptomatic hypotension (ICD-10 - I95.9) 12/29/2024 Symptomatic hypotension (ICD-10 - I95.9) 09/29/2024 History of coronary artery stent placement (ICD-10 - Z95.5) 12/08/2024 Tobacco abuse (ICD-10 - Z72.0) 06/10/2024 Imbalance (ICD-10 - R26.89) 05/23/2024 Tobacco abuse (ICD-10 - Z72.0) 06/10/2024 History of coronary artery stent placement (ICD-10 - Z95.5) 05/23/2024 History of colon polyps (ICD-10 - Z86.010) 09/29/2024 Tobacco abuse (ICD-10 - Z72.0) 12/08/2024 History of coronary artery stent placement (ICD-10 - Z95.5) 12/08/2024 Imbalance (ICD-10 - R26.89) 09/29/2024 Arteriosclerotic cardiovascular disease (ASCVD) (ICD-10 - I25.10) 05/23/2024 Essential hypertension (ICD-10 - I10) 05/23/2024 History of atrial fibrillation (ICD-10 - Z86.79) 09/29/2024 BMI 27.0-27.9,adult (ICD-10 - Z68.27) 12/08/2024 BMI 26.0-26.9,adult (ICD-10 - Z68.26) Plan Of Treatment Pending Test Test Name Order Date CT Scan : Chest, low dose 12/08/2024 Holter Monitor- 48 hour 12/29/2024 P-Basic Metabolic Panel (BMP) 12/29/2024 P-Basic Metabolic Panel (BMP) 12/08/2024 P-Vitamin D 1,25-Dihydroxy and 25-Hydrox y 12/08/2024 Next Appt Details Provider Name:Milka Burch er, 04/10/2025 01:45:00 PM, [address] [facility], [address], [place], [place], [id number], Insurance Providers Payer Name Payer Address Payer Phone Subscriber Number Group Number Insured Name Patient Relationship to Insured Coverage Start Date Coverage End Date [facility] [address] [address] [place] [phone] [id number] PANKAJ GILLIAM Self - patient is the insured Medical (General) History Medical History History ICD Code hypercholestrolemia COPD [Chronic obstructive pulmonary dise ase] Hypertension 2017 flu vaccine [employer] COVID 19 VACC, Moderna Aug 2020 Surgical History Surgery Date(Month/Year) cholecystectomy 2003 hernia repair 1956 right shoulder separation repair 1973 cataract, both eyes 2011 colonoscopy 06/2013 nevus with atypia of right shoulder 10/25 15 cardiac stent placed-Dr Duke 11/2018 positive Cologuard 01/2022 Colonocopy, Allran, 15 polyps, screen q 2 years 05/2022 Colonoscopy Allran, tubular adenomas Hospitalization History Reason Date(Month/Year) [facility] 11/22/18 see above
== END 2024-12-30 12:26 | disposition left against medical advice (07) ==
LOC: ER 12:25
PROVIDERS: Emergency Provider Emergency Medicine; PCP Family Medicine
DX: Z53.21 Procedure and treatment not carried out due to patient leaving prior to being seen by health care provider (principal)
CPT/HCPCS: 99211

== ENCOUNTER 2024-12-30 12:33 | Outpatient (CLI) | payer MEDICARE, SELFPAY | END 2024-12-30 23:59 | disposition home or self-care (01) | LOC: RT 12:34 | PROVIDERS: PCP Family Medicine; Visit Provider Family Medicine | DX: I47.10 Supraventricular tachycardia, unspecified (principal); I95.9 Hypotension, unspecified; R94.31 Abnormal electrocardiogram [ECG] [EKG] | CPT/HCPCS: 93225; 93227 ==

== ENCOUNTER 2025-01-02 12:22 | Outpatient (CLI) | payer MEDICARE, SELFPAY ==
--- OUTSIDE RECORDS SUMMARY | 2024-12-22 11:30 | XMS_ITS ---
Author Organization [facility] Address [address] [place] [id number] Care Team Providers Care Seeing Eye Dog Trainer Name Role Phone Milka Yates Primary Care Provider [phone] Allergies No Known Allergies Results Component Value [...] a day as needed Active Vital Signs Blood pressure systolic 82 mm Hg 12/23/19 25 Blood pressure diastolic 50 standing mm Hg 12/22 Heart Rate 57 /min 12/22/2024 Height 68 in 12/22/2024 Weight 171.6 lbs 12/22/2024 BMI 26.09 kg/m2 12/22/2024 Encounters Encounter Location Date Provider Diagnosis [facility] [address] [facility] 36 [facility] [address] [place] [id number] 12/22/2024 Mlika Yates Symptomatic hypotension I95.9 and Mild dehydration [...] Name:Milka Burch er, 04/10/2025 01:45:00 PM, 12[address] [facility] 36 [facility], [address], [place], [place], [id number], Progress Notes * PANKAJ WHEELER CDOB:1945 (79 yo M)Acc No.[id number]:12/22/2024 Progress Notes Patient: PANKAJ CARRILLO Provider: Milka Yates M.D. :1945 A ge:79 Y S ex:Male Date:12/22/2024 Address:[place] [address], [id number] Subjective: * Chief Complaints: * 1 . [...] since last visit: none. 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 Past smoking status: yes, PPD:1 , [...] lycohemoglobin 5.6% 5 - 6.5 % * PeculiarEden leechristina Lee 12/22/2024 05 :05:08 PM EDT > Provider reviewed results while patient in office. * Procedure Codes: 3 6416 CAPILLARY BLOOD DRAW, 82347 GLYCATED HEMOGLOBIN TEST, Modifiers: QW * Follow Up: 1 Week * Images: Billing Information: * Visit Code: 31712 Office Visit, Est Pt., Level 4. * Procedure Codes: 59729 CAPILLARY BLOOD DRAW. 57235 GLYCATED HEMOGLOBIN TEST. Modifiers: QW * Electronic signature of Milka Yates MD on 01/02/2025 at 12:25 PM EDT Sign off status: Pending * Provider: Milka Yates M.D. Date: 12/22/2024 Generated for Feliberto saunders/Gilma/Lashaeitting on: 0 01/02/2025 12:25 PM EDT History and Physical Notes * [...]
--- OUTSIDE RECORDS SUMMARY | 2024-12-29 12:00 | XMS_ITS ---
Author Organization [facility] Address [address] [place] [id number] Care Team Providers Care Assignment Desk Editor Name Role Phone Milka Yates Primary Care Provider Allergies No Known Allergies Results Component Value Reference Range Notes P-Basic Metabolic Panel (BMP ) (Not yet reviewed by provider) Interpretation: Performing Lab: Notes/Report: Test performed by [facility] [address] [place] [address] , [address], [place] [address] Chin Padilla MD, Emblem Maker CLIA: [id number] Sodium 137 135-145 mmol/L Potassium 4.3 3.5-5.3 mmol/L Chloride 102 97-108 mmol/L CO2 25 20-32 mmol/L Glucose 105 65-99 mg/dL BUN 12 8-23 mg/dL Creatinine 1.33 0.70-1.30 mg/dL Calcium 9.6 8.6-10.4 mg/dL eGFR by Creatinine 54 >59 mL/min/1.73m2 REASON FOR VISIT 1 wk f/u Medications [...] needed Active Vital Signs Blood pressure systolic 120 mm Hg 12/30/19 25 Blood pressure diastolic 70 mm Hg 025 Heart Rate 76 /min 12/29/2024 Height 68 in 12/29/2024 Weight 170.8 lbs 12/29/2024 BMI 25.97 kg/m2 12/29/2024 Encounters Encounter Location Date Provider Diagnosis [facility] [address] [place], [place] [phone] 12/29/2024 Milka Yates Symptomatic hypotension I95.9 Assessments Encounter Date Diagnosis (ICD Code) Assessment Notes Treatment Notes Treatment Clinical Notes Section Notes 12/29/2024 Symptomatic hypotension (ICD-10 - I95.9) Plan Of Treatment Pending Test Test Name Order Date Holter Monitor- 48 hour 12/29/2024 P-Basic Metabolic Panel (BMP) 12/29/2024 Next Appt Details Follow Up: 4 Weeks, Reason: Provider Name:Milka Burch er, 04/10/2025 01:45:00 PM, [address], [address], [place], [id number], Progress Notes * PANKAJ GILLIAM CDOB:1945 (79 yo M)Acc No.[id number]:12/29/2024 Progress Notes Patient: PANKAJ CARRILLO Provider: Milka Yates M.D. :1945 A ge:79 Y S ex:Male Date:12/29/2024 Address:[place] [address], [id number] Subjective: * Chief Complaints: * 1 . [...] stroke, bladder [place]. M other: . M ategómezl Grand Mother: [place].?Siblings: alive. Mireya jackson: alive. [...] since last visit: none. 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 Past smoking status: yes, PPD:1 , [...] 1. S ymptomatic hypotension - I95.9 (Primary) Plan: * Treatment: Value Reference Range B [...] by Creatinine 54 L >59 - mL/min/1.73m2 ?Imaging: Holter Monitor- 48 hour* Lisa Griffith 12/30/2024 07:5 7:37 AM EDT > faxed to outpatient registration; patient informed * Follow Up: 4 Weeks * Images: Billing Information: * Visit Code: 94374 Office Visit, Est Pt., Level 3. * Procedure Codes: * Electronic signature of Milka Yates MD on 01/02/2025 at 12:25 PM EDT Sign off status: Pending * Provider: Milka Yates M.D. Date: 0 12/29/2024 Generated for Feliberto saunders/Gilma/Lashaeitting on: 01/02/2025 12:25 PM EDT History and Physical [...]
--- OUTSIDE RECORDS SUMMARY | 2025-01-02 12:25 | XMS_ITS | Clinical Summary ---
Author Organization Healthcare Address [address] [place] [address] Care Team Providers Care Tariff Inspector Name Role Phone Unavailable Primary Care Provider Unavailabl e Social History Tobacco Use Types Packs/Day Years Used Date Smoking Tobacco: Never Assessed Sex and Gender Information Value Date Recorded Sex Assigned at Not on file Legal Sex Male 6:55 PM EDT Gender Identity Not on file Sexual Orientation Not on file Plan of Treatment Not on file Insurance [id number] MEDICARE
--- OUTSIDE RECORDS SUMMARY | 2025-01-02 12:26 | XMS_ITS | Patient Health Record ---
Author Organization [facility] Address [address] [place] [id number] Care Team Providers Care Insulation Board Calender Operator Name Role Phone Milka Yates Primary Care Provider [phone] Allergies No Known Allergies Results Component Value Reference Range Notes CBC Fingerstick (in house) Reviewed date:12/08/2024 04:54:43 [...] - 38 plat 215 100 - 400 P-Basic Metabolic Panel (BMP ) Reviewed date:12/30/2024 12:35:56 PM Interpretation:chlor 110, gluc 110 Performing Lab: Notes/Report: Test performed by [facility] [address] [place] [address] , [address], [place] [address] Chin Padilla MD, Drum Plater CLIA: [id number] Sodium 144 135-145 mmol/L Potassium 3.8 3.5-5.3 mmol/L Chloride 110 97-108 mmol/L CO2 24 20-32 mmol/L Glucose 110 65-99 mg/dL BUN 11 8-23 mg/dL Creatinine 1.08 0.70-1.30 mg/dL Calcium 8.8 8.6-10.4 mg/dL eGFR by Creatinine 69 >59 mL/min/1.73m2 P-Vitamin D 1,25-Dihydroxy a nd 25-Hydroxy Reviewed date:12/30/2024 12:35:56 PM Interpretation:45.7 Performing Lab: Notes/Report: Test performed by [facility] [address] [place] [address] , [address], [place] [address] Chin Padilla MD, Drum Plater CLIA: [id number] Vitamin D 25-Hydroxy 45.7 30.0-100.0 ng/mL Interpretation of Vitamin D 25 OH: < 20 ng/mL - Deficiency 20 - 29 ng/mL - Insufficiency 30 - 100 ng/mL - Sufficiency > 100 ng/mL - Super-therapeutic- toxicity may occur above this level. Clinical correlation required. Vitamin D, 1, 25 Dihydroxy 56.8 19.9-79.3 pg/m L Glycohemoglobin A1c (in hous e) Reviewed date:12/23/2024 09:38:15 AM Interpretation: Performing Lab: Notes/Report: glycohemoglobin 5.6% 5 - 6.5 % P-Basic Metabolic Panel (BMP ) (Not yet reviewed by provider) Interpretation: Performing Lab: Notes/Report: Test performed by [facility] [address] [place] [address] , [address], [place] [address] Chin Padilla MD, Drum Plater CLIA: [id number] Sodium 137 135-145 mmol/L Potassium 4.3 3.5-5.3 mmol/L Chloride 102 97-108 mmol/L CO2 25 20-32 mmol/L Glucose 105 65-99 mg/dL BUN 12 8-23 mg/dL Creatinine 1.33 0.70-1.30 mg/dL Calcium 9.6 8.6-10.4 mg/dL eGFR by Creatinine 54 >59 mL/min/1.73m2 CBC Venipuncture (in house) Reviewed date:09/30/2024 08:38:04 [...] - 38 platlet 190 100 - 400 P-Vitamin B12 Reviewed date:10/07/2024 12:12:22 PM Interpretation:satisfacotry Performing Lab: Notes/Report: Test performed by [facility] [address] [place] [address] , [address], [place] [address] Chin Padilla MD, Drum Plater CLIA: [id number] Vitamin B12 5746 293-6145 pg/mL P-Comprehensive Metabolic Pa greg (CMP) Reviewed date:10/07/2024 12:12:22 PM Interpretation:Normal Performing Lab: Notes/Report: Test performed by [facility] [address] , [address], [place] [address] Chin Padilla MD, Drum Plater CLIA: [id number] Sodium 142 135-145 mmol/L Potassium 4.2 3.5-5.3 [...] 0.4 <0.2-1.2 mg/dL A/G Ratio 2.3 1.1-2.5 P-TSH Reviewed date:10/07/2024 12:12:22 PM Interpretation:Normal Performing Lab: Notes/Report: Test performed by [facility] [address] [place] [address] , [address], [place] [address] Chin Padilla MD, Drum Plater CLIA: [id number] TSH 1.05 0.43-5.25 mU/L CBC Venipuncture (in house) Reviewed date:05/25/2024 01:18:01 [...] 51 Performing Lab: Notes/Report: Test performed by [facility] [address] [place] [address] , [address], [place] [address] Chin Padilla MD, Drum Plater CLIA: [id number] Sodium 141 135-145 mmol/L Potassium 4.7 3.5-5.3 [...] Interpretation:Normal Performing Lab: Notes/Report: Test performed by [facility] [address] [place] [address] , [address], [place] [address] Chin Padilla MD, Drum Plater CLIA: [id number] TSH 2.03 0.43-5.25 mU/L EKG Reviewed date:05/25/2024 03:56:02 PM Interpretation:Abnormal Performing Lab: Notes/Report: Abnormal Medications Medication SIG (Take, Route, Frequency, Duration) Notes Start Date End Date Status Vitamin D3 50 MCG (1999) 1 tab(s) ora lly once a day; Duration: 30 day(s) 06/10/2013 Active hydroCHLOROthiazide 12.5 MG 1 tab(s) ora lly once a day prn; Duration: 30 day(s) 12/28/2018 Not-Taking LORazepam 0.5 MG 1 tab(s) orally 3 times a day as needed Active Oxazepam 15 MG 1 cap(s) orally 3 times a day prn 11/22/2019 Not-Taking Trulance 3 MG 1 tab(s) orally once a day; Duration: 90 days 08/20/2022 Active Citalopram Hydrobromide 20 MG 1 tab(s) o rally once a day; Duration: 90 days Active Tretinoin 0.025 % 1 mya applied topically once a day (at bedtime); Duration: 30 day(s) 09/10/2022 Not-Taking Atorvastatin Calcium 20 MG 1 tab(s) oral ly once a day; Duration: 30 days Active Align 4 MG 1 cap(s) orally once a day; Duration: 28 day(s) 01/08/2021 Not-Taking B-12 1000 MCG 1 tab(s) orally once a day; Duration: 30 day(s) 06/10/2013 Active FiberCon 625 MG 2 orally once daily 01/08/2021 Not-Taking Aspirin 81 81 MG 1 tablet Orally Once a day Active Donepezil HCl 10 MG 1 tablet at bedtime Orally Once a day; Duration: 30 days 12/08/2024 Active Xarelto 15 MG 1 tablet Orally Once a day; Duration: 90 days Active Advil PM 200-25 MG 1capsules at bedtime as needed Orally Once a day as needed Active Clopidogrel Bisulfate 75 mg TAKE 1 TABLET DAILY Active dilTIAZem HCl ER 120 MG 1 [...] W/U Status Risk Notes Problem Tobacco abuse (3853897753) Tobacco abuse (Z72.0) Active confirmed Problem Essential hypertension (78019548) Essential hypertension (I10) Active confirmed Problem Multiple pulmonary nodules (811966084) Pulmonary nodules (R91.8) Active confirmed Problem Cardiac arrhythmia (690936901) Dysrhythmia (I49.9) Active confirmed Problem Sinus bradycardia (42892507) Sinus bradycardia (R00.1) Active confirmed Problem Memory loss (34546014) Memory loss (R41.3) Active confirmed Problem Pure hypercholesterolemia (079437013) Pure hypercholesterolemia (E78.0) Active confirmed Problem Persistent atrial fibrillation (366081696) Persistent atrial fibrillation (I48.1) Active confirmed Problem Constipation by delayed colonic transit (70291799) Constipation by delayed colonic transit (K59.01) Active confirmed Problem History of polyp of colon (situation) (232915509) History of colon polyps (Z86.010) Active confirmed Problem 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 (275350203147092) 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) Active confirmed Problem History of atrial fibrillation (255928750) History of atrial fibrillation (Z86.79) Active confirmed Problem COPD - Chronic obstructive pulmonary disease (79105428) Chronic obstructive pulmonary disease, unspecified COPD type (J44.9) Active confirmed Problem Multiple actinic keratoses (disorder) (124838510) Actinic keratoses (L57.0) Active confirmed Problem Abnormal gait (58060338) Imbalance (R26.89) Active confirmed Problem Carpal tunnel syndrome of left wrist (036185454988803) Carpal tunnel syndrome of left wrist (G56.02) Active confirmed Problem Adjustment disorder with mixed emotional features (31746077) Situational mixed anxiety and depressive disorder (F43.23) Active confirmed Problem Occlusion and stenosis of multiple and bilateral cerebral arteries (965168768) Bilateral carotid artery stenosis (I65.23) Active confirmed Problem Pure hypercholesterolemia (100102773) Pure hypercholesterolemia, unspecified (E78.00) Active confirmed Problem Benign prostatic hypertrophy without outflow obstruction (673735369) Benign prostatic hyperplasia without lower urinary tract symptoms (N40.0) Active confirmed Problem History of placement of stent for coronary artery disease (situation) (903401840) History of coronary artery stent placement (Z95.5) Active confirmed Problem Squamous cell carcinoma of external ear, 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 Problem Localized, primary osteoarthritis of the hand (832556026) Arthropathy of hand (M19.049) Active confirmed Problem 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 (511678335819789) Coronary artery disease involving ewiiaapaayp heart, angina presence unspecified, unspecified vessel or lesion type (I25.10) Active confirmed Problem Hidradenitis (72865150) Left axillary hidradenitis (L73.2) Active confirmed Problem Lumbar sprain (427069838) Sprain of low back, initial encounter (S33.5XXA) Active confirmed Problem Extrapyramidal movements (839071067) 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) Active confirmed Vital Signs Heart Rate 89 /min 01/02/2025 Blood pressure diastolic 60 mm Hg 01/02/2025 Height 68 in 01/02/2025 Blood pressure systolic 90 mm Hg 01/02/2025 Weight 165.4 lbs 01/02/2025 BMI 25.15 kg/m2 01/02/2025 Encounters Encounter Location Date Provider Diagnosis [facility] [facility] [facility] [address] [place] [id number] 03/07/2024 Milka Yates Sprain of low back, initial encounter S33.5XXA [facility] [address] [place] [id number] 03/14/2024 Milka Yates Acute right-sided lo w back pain, unspecified whether sciatica present M54.50 and Encounter for immunization Z23 [facility] [address] [facility] [address] [place], [place] [id number] 05/23/2024 Milka Yates Imbalance R26.89 ; Bilateral carotid artery stenosis I65.23 ; Tobacco abuse Z72.0 ; History of colon polyps Z86.010 ; Essential hypertension I10 and History of atrial fibrillation Z86.79 [facility] [address] [facility] [address] [place] [id number] 06/10/2024 Milka Yates Essential hypertensi on I10 ; Arteriosclerotic cardiovascular disease (ASCVD) I25.10 ; Imbalance R26.89 and History of coronary artery stent placement Z95.5 [facility] 121 [facility] [address] [place], [place] [id number] 12/08/2024 Milka Yates Essential hypertensi on I10 ; Memory loss R41.3 ; Tobacco abuse Z72.0 ; History of coronary artery stent placement Z95.5 ; Imbalance R26.89 and BMI 26.0-26.9,adult Z68.26 [facility] [address] [facility] [address] [place], [place] [id number] 12/22/2024 Milka Yates Symptomatic hypotens ion I95.9 and Mild dehydration E86.0 [facility] [address] [facility] [address] [place], [place] [id number] 12/29/2024 Milka Yates Symptomatic hypotens ion I95.9 [facility] [address] [place], [place] [id number] 01/02/2025 Milka Yates [facility] [address] [place], [place] [id number] 09/29/2024 Milka Yates Memory loss R41.3 ; Chronic obstructive pulmonary disease, unspecified COPD type J44.9 ; History of coronary artery stent placement Z95.5 ; Tobacco abuse Z72.0 ; Arteriosclerotic cardiovascular disease (ASCVD) I25.10 and BMI 27.0-27.9,adult Z68.27 [facility] [address] [place] [id number] 05/25/2024 Milka Yates Dysrhythmia I49.9 [facility] [address] [place], [place] [id number] 08/15/2024 Milka Yates Imbalance R26.89 [facility] [address] [place], [place] [id number] 08/30/2024 Milka Yates Constipation by bang yed colonic transit K59.01 [facility] [address] [place], [place] [id number] 08/31/2024 Milka Yates Constipation by bang yed colonic transit K59.01 [facility] [address] [facility] [address] [place], [place] [id number] 12/13/2024 Milka Yates [facility] [address] [place], [place] [id number] 12/30/2024 Milka Yates Assessments Encounter Date Diagnosis (ICD [...] R26.89) 05/23/2024 Tobacco abuse (ICD-10 - Z72.0) 05/23/2024 History of colon polyps (ICD-10 - Z86.010) 06/10/2024 History of coronary artery stent placement (ICD-10 - Z95.5) 09/29/2024 Tobacco abuse (ICD-10 - Z72.0) 12/08/2024 [...] Treatment Pending Test Test Name Order Date EKG 01/02/2025 CT Scan : Chest, low dose 12/08/2024 Holter Monitor- 48 hour 12/29/2024 P-Basic Metabolic Panel (BMP) 12/29/2024 Next Appt Details Provider Name:Milka Burch er, 04/10/2025 01:45:00 PM, [address], [address], [place], [place], [id number], Insurance Providers Payer Name Payer Address Payer Phone Subscriber Number Group Number Insured Name Patient Relationship to Insured Coverage Start Date Coverage End Date [facility] [address] [address] [place] [address] [id number] PANKAJ GILLIAM Self - patient is the insured Medical (General) History Medical History History ICD Code hypercholestrolemia COPD [Chronic obstructive pulmonary dise ase] Hypertension 2017 flu vaccine [employer] COVID 19 VACC, Moderna Aug 2020 Surgical History Surgery Date(Month/Year) cholecystectomy 2004 hernia repair 1956 right shoulder separation repair 1974 cataract, both eyes 2011 colonoscopy 06/2013 nevus with atypia of right shoulder 10/25 15 cardiac stent placed-Dr Duke 11/2018 positive Cologuard 01/2022 Colonocopy, [facility], 15 polyps, screen q 2 years 05/2022 Colonoscopy [facility], tubular adenomas Hospitalization History Reason Date(Month/Year) [facility] 11/22/18 see above
--- NOTE | 2025-01-02 12:41 | ECG_ITS ---
APPROVED REPORT Exam: Resting ECG HR:72 bpm ECG Measurements Heart Rate 72 AXES OK 96 P 261 QRSd 94 QRS 64 QT 437 T 49 QTc 461 Conclusion JUNCTIONAL RHYTHM WITH FREQUENT SUPRAVENTRICULAR PREMATURE COMPLEXES NONSPECIFIC T-WAVE ABNORMALITY PROLONGED QT INTERVAL ABNORMAL ECG UNCONFIRMED REPORT Electronically signed by : Carter Frye MD 01/03/2025 09:32:55
== END 2025-01-02 23:59 | disposition home or self-care (01) ==
LOC: RT 12:23
PROVIDERS: PCP Family Medicine; Visit Provider Family Medicine
DX: I49.1 Atrial premature depolarization (principal); I49.8 Other specified cardiac arrhythmias; I95.9 Hypotension, unspecified; R94.31 Abnormal electrocardiogram [ECG] [EKG]
CPT/HCPCS: 93005

== ENCOUNTER 2025-01-17 14:25 | Outpatient (CLI) | payer MEDICARE, SELFPAY ==
--- OUTSIDE RECORDS SUMMARY | 2025-01-17 14:28 | XMS_ITS | Clinical Summary ---
Author Organization Healthcare Address [address] [place] [address] Care Team Providers Care Medical Orderly Name Role Phone Unavailable Primary Care Provider Unavailabl e Social History Tobacco Use Types Packs/Day Years Used Date Smoking Tobacco: Never Assessed Sex and Gender Information Value Date Recorded Sex Assigned at Not on file Legal Sex Male 6:55 PM EDT Gender Identity Not on file Sexual Orientation Not on file Plan of Treatment Not on file Insurance [id number] MEDICARE
[2025-01-17 15:09] LABS: Hematocrit 40.5 % (42.0-52.0); Hemoglobin 13.6 g/dL (14.1-18.0); Immature Granulocytes % 0.9 %; Mean Corpuscular HGB Conc 33.6 g/dL (31.8-35.4); Mean Corpuscular Hemoglobin 32.3 pg (27.0-31.2); Mean Corpuscular Volume 96.2 fl (80-94); Nucleated Red Blood Cells % 0 %; Platelet Count 236 K/mm3 (142-424); Red Blood Count 4.21 M/mm3 (4.60-6.20); Red Cell Distribution Width-SD 46.4 fL; White Blood Count 8.5 K/mm3 (4.8-10.8)
[2025-01-17 16:17] LABS: Hepatitis C Ab Qual. W/ RFX NEGATIVE (Negative)
[2025-01-17 16:24] LABS: Alanine Aminotransferase 28 U/L (12-78); Albumin Level 4.0 g/dl (3.5-5.0); Albumin/Globulin Ratio 1.9 (1.1-1.8); Alkaline Phosphatase 130 U/L (38-126); Anion Gap 8.5 mEq/L (5-15); Aspartate Amino Transferase 33 U/L (17-59); Bilirubin,Total 0.4 mg/dl (0.2-1.3); Blood Urea Nitrogen 17 mg/dl (9-20); Calcium 9.5 mg/dl (8.4-10.2); Carbon Dioxide 28 mmol/L (22.0-30.0); Chloride 105 mmol/L (98-107); Creatinine,Serum 1.10 mg/dl (0.66-1.25); Estimated Glomerular Filt Rate 64 ml/min (>60); GFR (African American) 78 ML/MIN (>60); Globulin 2.1 g/dL (1.3-3.2); Glucose 93 mg/dl (74-100); Potassium 4.5 mmoL/L (3.5-5.1); Sodium 137 mmol/L (136-145); Total Protein,Serum 6.1 g/dl (6.3-8.2)
[2025-01-17 17:09] LABS: Vitamin B12 995 pg/mL (239-931)
[2025-01-18 15:17] LABS: Antinuclear Antibodies (ANA) Negative (Negative)
[2025-01-18 15:39] LABS: RPR W/RFX Titers Nonreactive (Nonreactive)
== END 2025-01-17 23:59 | disposition home or self-care (01) ==
LOC: LAB 14:25
PROVIDERS: PCP Family Medicine; Visit Provider Specialist
DX: G93.40 Encephalopathy, unspecified (principal)
CPT/HCPCS: 36415; 80053; 82607; 85025; 85651; 86038; 86592; 86803; 87389

== ENCOUNTER 2025-01-30 15:21 | Outpatient (CLI) | payer MEDICARE, SELFPAY ==
--- OUTSIDE RECORDS SUMMARY | 2025-01-02 07:15 | XMS_ITS ---
Author Organization [facility] Address [address] [place] [id number] Care Team Providers Care Recruitment Internship Name Role Phone Milka Yates Primary Care Provider [phone] REASON FOR VISIT MENTAL DETERIORATION Medications Medication [...] 01/02/2025 Encounters Encounter Location Date Provider Diagnosis [facility] [address] [place] [address] [address] [facility] [address] [place] [id number] 01/02/2025 Milka Yates Weight loss, unintentional R63.4 [...] Follow Up: 1 Week, Reason: Provider Name:Milka benavides, 02/09/2025 02:30:00 PM, [address] [place] [address], [facility] [address], [place], [id number], Provider Name:Milka benavides, 04/10/2025 01:45:00 PM, [address] [place] [address] [address], [place], [id number], Progress Notes * PANKAJ GILLIAM CDOB:1945 (79 yo M)Acc No.[id number]:01/02/2025 Progress Notes Patient: PANKAJ CARRILLO Provider: Milka Yates M.D. :1945 A ge:79 Y S ex:Male Date:01/02/2025 Address:[place] [address], [id number] Subjective: * Chief Complaints: * 1 . [...] * Images: Billing Information: * Visit Code: 23523 Office Visit, Est Pt., Level 3. * Procedure Codes: G2211 Complex e/m visit add on. * Electronic signature of Milka Yates MD on 01/30/2025 at 03:23 PM EDT Sign off status: Pending * Provider: Milka Yates M.D. Date: 0 01/02/2025 Generated for Feliberto saunders/Gilma/Lashaeitting on: 0 01/30/2025 03:23 PM EDT History and Physical Notes * [...]
--- OUTSIDE RECORDS SUMMARY | 2025-01-09 09:15 | XMS_ITS ---
[facility] Address [address] [place] [phone] Care Team Providers Care Shampoo Person Name Role Phone Milka Yates Primary Care Provider Allergies No Known Allergies Reason For Referral Reason Refer to Dr. Ivey f or assessment Diagnosis 1 Senile dementia (F03 .90) [facility] Referring Provider First Name Milka Jolly Referring Provider Last Name Milan Referring Provider Speciality Family Pra ctice General Notes Lisa Griffith 2024 02:08:50 PM > faxed to Dr. Ivey office; contact Kaleb at [phone] with information on appt time, Gladis Lisa [...] W/U Status Risk Notes Problem Senile dementia (54759756) Senile dementia (F03.90) Active confirmed Vital Signs Weight 168.8 lbs 01/09/2025 Blood pressure systolic 120 mm Hg 01/10/20 25 Blood pressure diastolic 68 mm Hg 025 Heart Rate 88 /min 01/09/2025 Height 68 in 01/09/2025 BMI 25.66 kg/m2 01/09/2025 Encounters Encounter Location Date Provider Diagnosis [facility] [address] [place] [id number] 01/09/2025 Milka Yates Senile dementia F03.90 Assessments Encounter Date Diagnosis (ICD Code) Assessment Notes Treatment Notes Treatment Clinical Notes Section Notes 01/09/2025 Senile dementia (ICD-10 - F03.90) Plan Of Treatment Referrals Referral Date Details 01/09/2025 01/09/2025, Refer to Dr. Ivey for assessment Next Appt Details Follow Up: 4 Weeks, Reason: Provider Name:Milka Burch er, 02/09/2025 02:30:00 PM, [address] [facility], [place], [phone], Provider Name:Milka Lamarmaliha er, 04/10/2025 01:45:00 PM, [address] [facility], [address], [place], [phone], Progress Notes * PANKAJ GILLIAM CDOB:1945 (79 yo M)Acc No.[id number]:01/09/2025 Progress Notes Patient: PANKAJ CARRILLO Provider: Milka Yates M.D. :1945 A ge:79 Y S ex:Male Date:01/09/2025 Address:[place] [address], [id number] Subjective: * Chief Complaints: * 1 . 1 Week Follow Up. * HPI: P sychology: The pt is here for a 1 week follow up on memory loss and weight loss. Pt states the dizziness is doing better. Son states he does have some concerns about the pt's mental state. His son wants to move him to [place] where son lives. Court hearing tomorrow. * [...] Procedure: s ee above , [facility] 11/22/18. * Family History: F ather: [...] since last visit: none. 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 Past smoking status: yes, PPD:1 , [...] * Images: Billing Information: * Visit Code: 32652 Office Visit, Est Pt., Level 3. * [...] Yates M.D. Date: 0 01/09/2025 Generated for Keni nicky/Gilma/eTransmitting on: 0 01/30/2025 03:23 PM EDT History and Physical Notes * Examination Category [...]
--- OUTSIDE RECORDS SUMMARY | 2025-01-19 06:15 | XMS_ITS ---
Author Organization [facility] Address [address] [place] [id number] Care Team Providers Care Housekeeper Caregiver Name Role Phone Milka Yates Primary Care Provider [place], Yusuf Unavailable [phone] Allergies No Known Allergies Results Component Value [...] 01/19/2025 Encounters Encounter Location Date Provider Diagnosis [facility] [address] [facility] [address] [place], [place] [id number] 01/19/2025 Yusuf [place] Acute cough R05.1 ; Acute hypotension I95.9 [...] via phone to repo rt progress, Reason: Provider Name:Milka Burch er, 02/09/2025 02:30:00 PM, [address], [address], [place], [id number], Provider Name:Milka Burch er, 04/10/2025 01:45:00 PM, [address], [address], [place], [id number], Progress Notes * PANKAJ GILLIAM CDOB:1945 (79 yo M)Acc No.[id number]:01/19/2025 Progress Notes Patient: PANKAJ CARRILLO Provider: Saud Acevedo M.D. :1945 A ge:79 Y S ex:Male Date:01/19/2025 Address:[place] [address], [id number] Pcp:Milka Yates Subjective: * Chief Complaints: * [...] since last visit: none. 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 Past smoking status: yes, PPD:1 , [...] cute hypotension - I95.9 3 . B LA 24.0-24.9, adult - Z68.24 Plan: * Treatment: [...] G 2211 Complex e/[place], [address] CBC WITH AUTO DIFF, 77680 CAPILLARY BLOOD DRAW, G8420 BMI<30 AND >=22 CALC & DOCU, G8783 BP SCR PRFRM RCMDD DEFIND SCR INTVL, G8752 MOST RECENT SYSTOLIC BP < 140MM HG, G8754 MOST RECENT DIASTOLIC BP < 90MM HG * Follow Up: v ia phone to report progress * Images: Billing Information: * Visit Code: 72496 Office Visit, Est Pt., Level 3. * Procedure Codes: G2211 Complex e/[place]. [address] CBC WITH AUTO DIFF. 11010 CAPILLARY BLOOD DRAW. G8420 BMI<30 AND >=22 CALC & DOCU. G8783 BP SCR PRFRM RCMDD DEFIND SCR INTVL. G8752 MOST RECENT SYSTOLIC BP < 140MM HG. G8754 MOST RECENT DIASTOLIC BP < 90MM HG. * Electronic signature of Debi Acevedo MD on 01/30/2025 at 03:23 PM EDT Sign off status: Pending * Provider: Saud Acevedo M.D. Date: 01/19/2025 Generated for Feliberto saunders/Gilma/Lashaeitting on: 01/30/2025 03:23 PM EDT History and Physical [...]
--- OUTSIDE RECORDS SUMMARY | 2025-01-30 15:23 | XMS_ITS | Referral Summary ---
Author Organization [facility] ([place], [place], [place], [place]) Address [address] [place] [address] Care Team Providers Care Paint Roller Assembler Name Role Phone Rik Yates MD Primary Care Provider [phone] Encounters * This document contains information received from the source organization and may not represent a complete record from that organization. Date Type Department Care Team Description 01/19/2025 Outside Orders [facility] Central Scheduling [address] [place] [address] Carol Ivey Altered mental status, unspecified altered mental status type (Primary Dx); Encephalopathy, unspecified type from Last 3 Months Social History Tobacco Use Types Packs/Day Years Used Date Smoking Tobacco: Never Assessed Sex and Gender Information Value Date Recorded Sex Assigned at Not on file Legal Sex Male 6:23 PM CDT Gender Identity Not on file Sexual Orientation Not on file Plan of Treatment Not on file Insurance [facility] MEDICARE ADVANTAGE Care Teams Paint Roller Assembler Relationship Specialty Start Date End Date Rik Yates MD [address] [facility] [address] [place] [phone] PCP - General Neurology 01/23/25
--- OUTSIDE RECORDS SUMMARY | 2025-01-30 15:23 | XMS_ITS | Clinical Summary ---
Author Organization [facility] Address [address] [place] [address] Care Team Providers Care Associate Store Leader Name Role Phone Unavailable Primary Care Provider Unavailabl e Social History Tobacco Use Types Packs/Day Years Used Date Smoking Tobacco: Never Assessed Sex and Gender Information Value Date Recorded Sex Assigned at Not on file Legal Sex Male 6:55 PM EDT Gender Identity Not on file Sexual Orientation Not on file Plan of Treatment Not on file Insurance [id number] MED[address]ARE
--- OUTSIDE RECORDS SUMMARY | 2025-01-30 15:24 | XMS_ITS | Patient Health Record ---
Author Organization [facility] Address [address] [place] [id number] Care Team Providers Care Human Resources Intern Name Role Phone Milak Yates Primary Care Provider Yusuf Acevedo Unavailable [phone] Allergies No Known Allergies Results Component Value [...] - 38 plat 222 100 - 400 Glycohemoglobin A1c (in hous e) Reviewed date:12/23/2024 09:38:15 AM Interpretation: Performing Lab: Notes/Report: glycohemoglobin 5.6% 5 - 6.5 % P-Basic Metabolic Panel (BMP ) Reviewed date:01/06/2025 09:10:23 AM Interpretation:gluc 105, Cr 1.33, gfr 54 Performing Lab: Notes/Report: Test performed by [facility] [address] [place] [address] , [address], [place] [address] Chin Padilla MD, Hydrotherapist CLIA: [id number] Sodium 137 135-145 mmol/L Potassium 4.3 3.5-5.3 mmol/L Chloride 102 97-108 mmol/L CO2 25 20-32 mmol/L Glucose 105 65-99 mg/dL BUN 12 8-23 mg/dL Creatinine 1.33 0.70-1.30 mg/dL Calcium 9.6 8.6-10.4 mg/dL eGFR by Creatinine 54 >59 mL/min/1.73m2 Holter Monitor- 48 hour (Not yet reviewed by provider) Interpretation: Performing Lab: Notes/Report: EKG Reviewed date:01/06/2025 09:10:23 AM Interpretation:Abnormal Performing Lab: Notes/Report: Abnormal CBC Fingerstick (in house) Reviewed date:12/08/2024 04:54:43 [...] 110 Performing Lab: Notes/Report: Test performed by [facility] [address] [place] [address] , [place] [address] Chin Padilla MD, Hydrotherapist CLIA: [id number] Sodium 144 135-145 mmol/L Potassium 3.8 3.5-5.3 mmol/L Chloride 110 97-108 mmol/L CO2 24 20-32 mmol/L Glucose 110 65-99 mg/dL BUN 11 8-23 mg/dL Creatinine 1.08 0.70-1.30 mg/dL Calcium 8.8 8.6-10.4 mg/dL eGFR by Creatinine 69 >59 mL/min/1.73m2 P-Vitamin D 1,25-Dihydroxy a nd 25-Hydroxy Reviewed date:12/30/2024 12:35:56 PM Interpretation:45.7 Performing Lab: Notes/Report: Test performed by [facility] [address] [place] [address] , [address], [place] [address] Chin Padilla MD, Hydrotherapist CLIA: [id number] Vitamin D 25-Hydroxy 45.7 30.0-100.0 ng/mL Interpretation of Vitamin D 25 OH: < 20 ng/mL - Deficiency 20 - 29 ng/mL - Insufficiency 30 - 100 ng/mL - Sufficiency > 100 ng/mL - Super-therapeutic- toxicity may occur above this level. Clinical correlation required. Vitamin D, 1, 25 Dihydroxy 56.8 19.9-79.3 pg/m L CBC Venipuncture (in house) Reviewed date:09/30/2024 08:38:04 [...] Interpretation:satisfacotry Performing Lab: Notes/Report: Test performed by [facility] [address] [place] [address] , [address], [place] [address] Chin Padilla MD, Hydrotherapist CLIA: [id number] Vitamin B12 3066 597-8929 pg/mL P-Comprehensive Metabolic Pa greg (CMP) Reviewed date:10/07/2024 12:12:22 PM Interpretation:Normal Performing Lab: Notes/Report: Test performed by [facility] [address] [place] [address] , [address], [place] [address] Chin Padilla MD, Hydrotherapist CLIA: [id number] Sodium 142 135-145 mmol/L Potassium 4.2 3.5-5.3 [...] Interpretation:Normal Performing Lab: Notes/Report: Test performed by [facility] [address] [place] [address] , [address], [place] [address] Chin Padilla MD, Hydrotherapist CLIA: [id number] TSH 1.05 0.43-5.25 mU/L CBC Venipuncture (in [...] 51 Performing Lab: Notes/Report: Test performed by [facility] [address] [place] [address] , [address], [place] [address] Chin Padilla MD, Hydrotherapist CLIA: [id number] Sodium 141 135-145 mmol/L Potassium 4.7 3.5-5.3 [...] Interpretation:Normal Performing Lab: Notes/Report: Test performed by [facility], [address] , [place] [address] Chin Padilla MD, Hydrotherapist CLIA: [id number] TSH 2.03 0.43-5.25 mU/L EKG Reviewed date:05/25/2024 03:56:02 PM Interpretation:Abnormal Performing Lab: Notes/Report: Abnormal Medications Medication SIG (Take, Route, Frequency, Duration) Notes Start Date End Date Status LORazepam 0.5 MG 1 tab(s) orally 3 ti mes a day as needed Active Atorvastatin Calcium [...] a day; Duration: 90 days 08/20/2022 Active Zithromax Z-Francis 250 MG as directed Orall y daily; Duration: 5 days 01/19/2025 Active Vitamin D3 50 MCG (2000 UT) 1 tab(s) ora lly once a day; Duration: 30 day(s) 06/10/2013 Active dilTIAZem HCl ER 120 MG 1 capsule Orally once a day Active Ezetimibe 10 MG 1 tablet Orally Once a day; Duration: 90 days Active Advil PM 200-25 MG 1capsules at bedtime as needed Orally Once a day as needed Active Citalopram Hydrobromide 20 MG 1 tab(s) orally once a day; Duration: 90 days Active Clopidogrel Bisulfate 75 mg TAKE 1 TABLET DAILY Active Immunizations Vaccine Route Administration Date Status [...] W/U Status Risk Notes Problem Tobacco abuse (8647177447) Tobacco abuse (Z72.0) Active confirmed Problem Essential hypertension (61120024) Essential hypertension (I10) Active confirmed Problem Multiple pulmonary nodules (229061034) Pulmonary nodules (R91.8) Active confirmed Problem Cardiac arrhythmia (465149617) Dysrhythmia (I49.9) Active confirmed Problem Sinus bradycardia (82867365) Sinus bradycardia (R00.1) Active confirmed Problem Memory loss (84783280) Memory loss (R41.3) Active confirmed Problem Pure hypercholesterolemia (083298591) Pure hypercholesterolemia (E78.0) Active confirmed Problem Persistent atrial fibrillation (385625475) Persistent atrial fibrillation (I48.1) Active confirmed Problem Constipation by delayed colonic transit (39071035) Constipation by delayed colonic transit (K59.01) Active confirmed Problem History of polyp of colon (situation) (025180490) History of colon polyps (Z86.010) Active confirmed Problem Atherosclerotic hear t disease of [place] coronary artery without angina pectoris (176108286137641) 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) Active confirmed Problem History of atrial fibrillation (044093531) History of atrial fibrillation (Z86.79) Active confirmed Problem COPD - Chronic obstructive pulmonary disease (16497150) Chronic obstructive pulmonary disease, unspecified COPD type (J44.9) Active confirmed Problem Multiple actinic keratoses (disorder) (521618924) Actinic keratoses (L57.0) Active confirmed Problem Abnormal gait (07478057) Imbalance (R26.89) Active confirmed Problem Carpal tunnel syndrome of left wrist (929522094665162) Carpal tunnel syndrome of left wrist (G56.02) Active confirmed Problem Adjustment disorder with mixed emotional features (88441065) Situational mixed anxiety and depressive disorder (F43.23) Active confirmed Problem Occlusion and stenosis of multiple and bilateral cerebral arteries (113212837) Bilateral carotid artery stenosis (I65.23) Active confirmed Problem Pure hypercholesterolemia (543115892) Pure hypercholesterolemia, unspecified (E78.00) Active confirmed Problem Benign prostatic hypertrophy without outflow obstruction (662417368) Benign prostatic hyperplasia without lower urinary tract symptoms (N40.0) Active confirmed Problem History of placement of stent for coronary artery disease (situation) (052806443) History of coronary artery stent placement (Z95.5) Active confirmed Problem Squamous cell carcinoma of external ear, 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 Problem Localized, primary osteoarthritis of the hand (143053171) Arthropathy of hand (M19.049) Active confirmed Problem Atherosclerotic hear t disease of qu[place] coronary artery without angina pectoris (943517302201462) Coronary artery disease involving qu[place] heart, angina presence unspecified, unspecified vessel or lesion type (I25.10) Active confirmed Problem Hidradenitis (22998238) Left axillary hidradenitis (L73.2) Active confirmed Problem Lumbar sprain (171986308) Sprain of low back, initial encounter (S33.5XXA) Active confirmed Problem Extrapyramidal movements (662381815) 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) Active confirmed Problem Senile dementia (88222226) Senile dementia (F03.90) Active confirmed Vital Signs Heart Rate 83 /min 01/19/2025 Blood pressure diastolic 54 mm Hg 01/19/2025 Height 68 in 01/19/2025 Blood pressure systolic 94 mm Hg 01/19/2025 Weight 162.8 lbs 01/19/2025 BMI 24.75 kg/m2 01/19/2025 Encounters Encounter Location Date Provider Diagnosis [facility] [address] [id number] 03/07/2024 Milka Yates Sprain of low back, initial encounter S33.5XXA [facility] [address] [id number] 03/14/2024 Milka Yates Acute right-sided lo w back pain, unspecified whether sciatica present M54.50 and Encounter for immunization Z23 [facility] [facility] [address] [place] [id number] 05/23/2024 Milka Yates Imbalance R26.89 ; Bilateral carotid artery stenosis I65.23 ; Tobacco abuse Z72.0 ; History of colon polyps Z86.010 ; Essential hypertension I10 and History of atrial fibrillation Z86.79 [facility] [address] [place] [id number] 06/10/2024 Milka Yates Essential hypertensi on I10 ; Arteriosclerotic cardiovascular disease (ASCVD) I25.10 ; Imbalance R26.89 and History of coronary artery stent placement Z95.5 [facility] [address] [place] [facility] [address] [place] [id number] 12/08/2024 Milka Yates Essential hypertensi on I10 ; Memory loss R41.3 ; Tobacco abuse Z72.0 ; History of coronary artery stent placement Z95.5 ; Imbalance R26.89 and BMI 26.0-26.9,adult Z68.26 [facility] [place] [facility] [address] [place] [id number] 12/22/2024 Milka Yates Symptomatic hypotens ion I95.9 ; Mild dehydration E86.0 and BMI 26.0-26.9,adult Z68.26 [facility] [place] [facility] [address] [place] [id number] 12/29/2024 Milka Yates Symptomatic hypotens ion I95.9 and BMI 25.0-25.9,adult Z68.25 [facility] [place] [facility] [address] [place] [id number] 01/02/2025 Milka Yates Weight loss, unintentional R63.4 ; Memory loss R41.3 ; Essential hypertension I10 and Tobacco abuse Z72.0 [facility] [address] [place] [id number] 01/09/2025 Milka Yates 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 [facility] [address] [place] [id number] 01/19/2025 Yusuf Halstead Acute cough R05.1 ; Acute hypotension I95.9 and BMI 24.0-24.9, adult Z68.24 [facility] [address] [place] [id number] 09/29/2024 Milka Yates Memory loss R41.3 ; Chronic obstructive pulmonary disease, unspecified COPD type J44.9 ; History of coronary artery stent placement Z95.5 ; Tobacco abuse Z72.0 ; Arteriosclerotic cardiovascular disease (ASCVD) I25.10 and BMI 27.0-27.9,adult Z68.27 [facility] [place] [facility] [address] [place] [id number] 05/25/2024 Milka Yates Dysrhythmia I49.9 [facility] [address] [place], [place] [id number] 08/15/2024 Milka Yates Imbalance R26.89 [facility] [address] [place], [place] [id number] 08/30/2024 Milka Yates Constipation by bang yed colonic transit K59.01 [facility] [address] [place], [place] [id number] 08/31/2024 Milka Yates Constipation by bang yed colonic transit K59.01 [facility] [address] [place], [place] [id number] 12/13/2024 Milka Yates [facility] [address] [place], [place] [id number] 12/30/2024 Milka Yates [facility] [address] [place], [place] [id number] 01/06/2025 Milka Yates Assessments Encounter Date Diagnosis (ICD [...] 12/08/2024 Memory loss (ICD-10 - R41.3) 12/22/2024 Symptomatic hypotension (ICD-10 - I95.9) 12/29/2024 BMI 25.0-25.9,adult (ICD-10 - Z68.25) 12/29/2024 Symptomatic hypotension (ICD-10 - I95.9) 12/22/2024 Mild dehydration (ICD-10 - E86.0) 01/02/2025 Weight loss, unintentional (ICD-10 - R63.4) Ensure 1 can bid 01/02/2025 Memory loss (ICD-10 - R41.3) 01/09/2025 Senile dementia (ICD-10 - F03.90) 01/19/2025 Acute hypotension (ICD-10 - I95.9) Blood pressure journal, hold Verapamil for a few days 01/19/2025 Acute cough (ICD-10 - R05.1) 01/19/2025 BMI 24.0-24.9, adult (ICD-10 - Z68.24) 12/22/2024 BMI 26.0-26.9,adult (ICD-10 - Z68.26) 01/02/2025 Essential hypertension (ICD-10 - I10) 09/29/2024 History of coronary artery stent placement (ICD-10 - Z95.5) 12/08/2024 Tobacco abuse (ICD-10 - Z72.0) 06/10/2024 Imbalance (ICD-10 - R26.89) 05/23/2024 Tobacco abuse (ICD-10 - Z72.0) 05/23/2024 History of colon polyps (ICD-10 - Z86.010) 06/10/2024 History of coronary artery stent placement (ICD-10 - Z95.5) 09/29/2024 Tobacco abuse (ICD-10 - Z72.0) 12/08/2024 History of coronary artery stent placement (ICD-10 - Z95.5) 01/02/2025 Tobacco abuse (ICD-10 - Z72.0) 12/08/2024 Imbalance (ICD-10 - R26.89) 09/29/2024 Arteriosclerotic cardiovascular disease (ASCVD) (ICD-10 - I25.10) 05/23/2024 Essential hypertension (ICD-10 - I10) 05/23/2024 History of atrial fibrillation (ICD-10 - Z86.79) 09/29/2024 BMI 27.0-27.9,adult (ICD-10 - Z68.27) 12/08/2024 BMI 26.0-26.9,adult (ICD-10 - Z68.26) Plan Of Treatment Pending Test Test Name Order Date CT Scan : Chest, low dose 12/08/2024 Holter Monitor- 48 hour 12/29/2024 Next Appt Details Provider Name:Milka Jolly [facility], 02/09/2025 02:30:00 PM, [address], [address], [place], [place], [phone], Provider Name:Milka OlveraRik [facility], 04/10/2025 01:45:00 PM, [address], [address], [place], [place], [id number], Insurance Providers Payer Name Payer Address Payer Phone Subscriber Number Group Number Insured Name Patient Relationship to Insured Coverage Start Date Coverage End Date [facility] [address] [address] [place] [address] [id number] PANKAJ WHEELER Self - patient is the insured Medical (General) History Medical History History ICD Code hypercholestrolemia COPD [Chronic obstructive pulmonary dise ase] Hypertension 2018 flu vaccine [employer] COVID 19 VACC, Moderna Aug 2020 Surgical History Surgery Date(Month/Year) cholecystectomy 2004 hernia repair 1956 right shoulder separation repair 1974 cataract, both eyes 2011 colonoscopy 06/2013 nevus with atypia of right shoulder 10/25 14 cardiac stent placed-Dr Duke 11/2018 positive Cologuard 01/2022 Colonocopy, Allran, 15 polyps, screen q 2 years 05/2022 Colonoscopy Allran, tubular adenomas Hospitalization History Reason Date(Month/Year) [facility] 11/22/2018
--- OUTSIDE RECORDS SUMMARY | 2025-01-30 15:24 | XMS_ITS | Encounter Summary ---
Author Organization [facility] ([place], [place], [place], [place]) Address [address] [place] [address] Care Team Providers Care Coin Machine Collector Supervisor Name Role Phone Rik Yates MD Primary Care Provider [phone] Reason for Referral * Consultation (Routine) - Closed Specialty Diagnoses / Procedures Referred By Contalexandra t Referred To Contact Behavioral Health Diagnoses Altered mental status, unspecified altered mental status type Encephalopathy, unspecified type Josiah, Provider Not In The System, [facility] [place] [id number] Stefania Gallegos, [place] [address] [place] [address] Phone: tel: fax: Referral ID Status Reason Start Date Expiration Date V isits Requested Visits Authorized [id number] Closed Specialty Services Required 01/19/2025 01/19/2026 1 1 Encounter Details Date Type Department Care Team (Late st Contact Info) Description 01/19/2025 Outside Orders [facility] Central Scheduling [address] [place] [address] MartaCarol cabrera [address] [place] [address] Altered mental status, unspecified altered mental status type (Primary Dx); Encephalopathy, unspecified type Social History Tobacco Use Types Packs/Day Years Used Date Smoking Tobacco: Never Assessed Sex and Gender Information Value Date Recorded Sex Assigned at Not on file Legal Sex Male 6:23 PM CDT Gender Identity Not on file Sexual Orientation Not on file documented as of this encounter Plan of Treatment Scheduled Referrals Name Type Priority Associated Diagnoses Orde r Schedule Ambulatory referral to Behavioral Health Outpatient Referral Routine Altered mental status, unspecified altered mental status type Encephalopathy, unspecified type Expected: 01/19/2025, Expires: 01/19/2026 documented as of this encounter Visit Diagnoses Diagnosis Altered mental status, unspecified altered mental status type- Primary Encephalopathy, unspecified type documented in this encounter Care Teams Coin Machine Collector Supervisor Relationship Specialty Start Date End Date Rik Yates MD [address] [address] PCP - General Neurology 01/23/25 documented as of this encounter
--- OUTSIDE RECORDS SUMMARY | 2025-01-30 15:24 | XMS_ITS | Clinical Summary ---
Author Organization [employer] ([place], [place], [place], [place]) Address [address] [place] [address] Care Team Providers Care Corporate Counselor Name Role Phone Rik Yates MD Primary Care Provider [phone] Encounters * This document contains information received from the source organization and may not represent a complete record from that organization. Date Type Department Care Team Description 01/19/2025 Outside Orders [facility] Central Scheduling [address] [place] [address] Carol Ivey Altered mental status, [...] Orientation Not on file Plan of Treatment Health Maintenance Due Date Last Done Comments Tobacco Cessation Counseling and Screening (12+) 1957 Respiratory Syncytial Virus (RSV) Adult or (1 - 1-dose 75+ series) 2018 Shingles Vaccine (Zoster) (2 of 2) 02/24/20192018 Pneumococcal 50+ years (2 of 2 - PCV) 02/13/2021 02/14/2020 Falls Risk Screening 06/08/2024 COVID-19 VACCINE (2023-2 5 season) 2024 04/08/2024, 04/16/2022, 09/17/2021, Additional history exists Medicare IPPE (Welcome to Medicare) [id number] 11/06/2024 Influenza Vaccine (#1) 2025 2, 05/08/2021, 02/14/2020, Additional history exists DTAP/TDAP/TD VACCINES (2 - T d or Tdap) 07/14/2028 07/14/2018 [place] [address] Care Teams Corporate Counselor Relationship Specialty Start Date End Date Rik Yates MD [address] [facility] [address] [place] [address] PCP - General Neurology 01/23/25
--- NOTE | 2025-01-30 15:45 | MR_ITS ---
FINAL REPORT TECHNIQUE: Multiplanar and multisequence imaging of the brain was obtained before and after contrast injection. CLINICAL HISTORY: Mental status changes FINDINGS: Atrophy is noted with associated ex vacuo dilatation of the ventricles. There is no mass effect or midline shift. Small foci of periventricular and subcortical white matter are nonspecific. No hydrocephalus. The cerebellum and brainstem have an unremarkable appearance. There are no areas of restricted diffusion on diffusion weighted images to suggest acute infarct. Soft tissues are without acute abnormality. Post contrast images reveal no pathologic contrast enhancement. IMPRESSION: No acute intracranial abnormality and no pathologic contrast enhancement. Periventricular and subcortical T2 abnormality, likely related to changes of chronic small vessel ischemia. Reviewed, Interpreted and Dictated by Jill Flaherty MD Transcribed by Magali Ramos Authenticated and [facility]
[2025-01-30] MEDS: SODIUM CHLORIDE 0.9% 10ML SYR (RAD ONLY) 10 ML IV (16:11)
[2025-01-30] MEDS: GADOTERIDOL INJ 20ML SYRINGE 15 ML IV (16:11)
== END 2025-01-30 23:59 | disposition home or self-care (01) ==
LOC: RAD 15:21
PROVIDERS: PCP Family Medicine; Visit Provider Specialist
DX: R41.82 Altered mental status, unspecified (principal)
CPT/HCPCS: 70553; A9576

== ENCOUNTER 2025-04-28 18:59 | Emergency (ER) | payer MEDICARE, SELFPAY ==
--- NOTE | 2025-04-28 19:05 | ED_ITS ---
<Statement entered by Vincent Anderson DO - 04/29/25 01:20> I was consulted by the LEONARD, and we discussed the complexity of problems being addressed. I approved the treatment and management plan for this patient's care in the emergency department, thus performing a substantive portion of the medical decision making. Vincent Anderson DO I would like to clarify that the patient presentation was consistent with a skin tear and not a true deep tissue laceration. This skin tear was not amenable to repair. Patient was discharged with a dressing in place. Discharge Plan Disposition Patient Disposition: Home, Self-Care Prescriptions Prescriptions: No Action donepezil 5 mg tablet 5 mg PO HS Patient Comments: TAKE 1 TABLET BY MOUTH AT BEDTIME clopidogrel 75 mg tablet 75 mg PO DAILY risperidone 0.25 mg tablet 0.25 mg PO DAILY Patient Comments: TAKE 1 TABLET BY MOUTH ONCE A DAY ezetimibe [Zetia] 10 mg tablet 10 mg PO DAILY vitamin B complex [B Complex-Vitamin B12] Tablet 1 tab PO HS lorazepam 0.5 mg tablet 0.5 mg PO BID PRN (Reason: anxiety) Qty: 60 2RF atorvastatin 20 mg tablet 20 mg PO DAILY Qty: 90 3RF rivaroxaban 15 MG tablet 15 mg PO DAILY citalopram [Celexa] 20 mg tablet 20 mg PO DAILY Trulance 3 mg Tablet 3 mg PO DAILY Referrals Follow up/Referrals: Natalie Yates MD [Primary Care Provider, Medical] - See instructions Activity Restrictions/Add. Instructions Additional Instructions/Restrictions: Today you were evaluated in the emergency department for a skin tear. Please keep the area covered for the next 24 hours. Please follow-up with your PCP. Return to the ED for worsening of condition. Clinical Impressions Clinical Impression: Skin tear Instructions Patient Instructions: DI for Minor Laceration Print Language Print Language: Faroese Discharge ED Provider: Vincent Anderson General Adult HPI General Chief complaint: Wound/Laceration Stated complaint: Wound on L arm bleeding Time Seen by Provider: 04/28/25 19:03 History of Present Illness HPI narrative: patient is an 79-year-old male PMHx coronary artery disease, anticoagulant use, Hypertension, hyperlipidemia who presents to the ED for complaints of small laceration to the left elbow. Patient states he was walking when he bumped his left elbow on a door latch causing a superficial laceration to the area that he has had difficulty getting the bleeding to stop. Patient has not applied a pressure dressing to the area only a Band-Aid. He does not report any pain. Related Data Home Medications ?Medication ?Instructions ?Recorded ?Confirmed ezetimibe 10 mg tablet (Zetia) 10 mg PO DAILY Choleste rol 11/09/18 04/20/25 vitamin B complex (B 1 tab PO HS Supplement 11/1904/20/25 Complex-Vitamin B12 tablet) rivaroxaban 15 mg tablet 15 mg PO DAILY anticoag 09/0604/20/25 citalopram 20 mg tablet (Celexa) 20 mg PO DAILY Depres pricilla 05/05/22 04/20/25 donepezil 5 mg tablet 5 mg PO HS 10/20/24 04/20/25 plecanatide 3 mg tablet (Trulance) 3 mg PO DAILY 10/2104/20/25 clopidogrel 75 mg tablet 75 mg PO DAILY 01/17/2504/08 risperidone 0.25 mg tablet 0.25 mg PO DAILY 03/13/2506/20/24 Previous Rx's ?Medication ?Instructions ?Recorded atorvastatin 20 mg tablet 20 mg PO DAILY #90 tabs 01/30 lorazepam 0.5 mg tablet 0.5 mg PO BID PRN anxiety #6 0 tabs 04/20/25 Allergies Allergy/AdvReac Type Severity Reaction Status Date / Time No Known Allergies Allergy Verified 04/20/25 10:01 [facility] Disclaimer: The information contained in this section may have been updated after the patient was seen, as this information can be updated by other users. Medical History Pre-op exam Depression Anxiety Hard of hearing History of cataract Major depressive disorder Generalized anxiety disorder Stenosis of carotid artery Carotid bruit present skilled nursing current use of anticoagulant Carotid artery stenosis Chronic a-fib CAD (coronary artery disease) HTN (hypertension) Tobacco use Hyperlipidemia Surgical History History of colonoscopy History of hernia surgery H/O arthroscopy of shoulder Stented coronary artery Family History Other Cancer Coronary artery disease Stroke Social History Smoking Status: Current every day smoker tobacco type: cigarettes packs per day: 1 years smoked: 60 alcohol intake: never substance use type: denies use current occupational status: retired Travel in the last 8 weeks?: None number of children: 0 caffeine: Yes Have you lived/traveled outside US in past 30 days?: No Contact w/someone who lives/traveled outside US past 30 days?: No Exposure to someone with infectious disease in past 14 days?: No Do you have a fever (greater than 100.4 F or 38 C)?: No Have you tested positive for COVID-19?: No Exposed to someone with COVID-19 in past 14 days?: No Do you have a sore throat?: No Do you have a cough?: No Do you have any weakness?: No Do you have any diarrhea?: No Are you experiencing any unusual bleeding?: No Do you have any muscle aches/pain?: No Do you have any abdominal pain?: No Are you experiencing loss of taste or smell?: No Other Medical History Have you received the Flu Vaccine for this season: No Have you received the Pneumonia Vaccine: Yes ROS Obtained: Yes Systems reviewed as appropriate & no additional complaints except as documented Physical Exam General General appearance: alert Head Head exam: atraumatic Eye Eye exam: Present PERRL Neck Neck exam: Present full ROM Respiratory Respiratory exam: Present normal lung sounds bilaterally Cardiovascular Cardiovascular exam: Present regular rate Extremities Exam Extremities exam: Present other (1 cm left elbow skin tear, minimal bleeding n oted.) Neurological Exam Neurological exam: Present alert and oriented X3 Skin Skin exam: Present dry Medical Decision Making Medical Records Screening: Per USPSTF and CDC recommendations, given the prevalence of disease in our region, it is our hospital?s policy to screen for HIV and viral Hepatitis for all patients aged 18 and over and those with ongoing risk factors. Zi Inquiry Pt receiving controlled substance: No Zi was queried for this patient: No Vital Signs: 04/28/25 19:13 04/28/25 19:23 Temperature 98.2 F Temperature Source Tympanic Pulse Rate 75 Pulse Rate [Left] 75 Respiratory Rate 18 18 Blood Pressure 140/65 Blood Pressure [Right Arm] 140/65 Blood Pressure Mean [Right Arm] 90 02 Sat by Pulse Oximetry 97 97 Oxygen Delivery Method Room Air Medical Decision Narrative: In summary, patient is an 79-year-old male PMHx coronary artery disease, anticoagulant use, Hypertension, hyperlipidemia who presents to the ED for complaints of small laceration to the left elbow. Patient states he was walking when he bumped his left elbow on a door latch causing a superficial laceration to the area that he has had difficulty getting the bleeding to stop. Patient has not applied a pressure dressing to the area only a Band-Aid. He does not report any pain. Upon initial evaluation patient is alert, oriented and cooperative. He is ambulatory without difficulty. 1 cm superficial skin tear noted to the left elbow, very minimal bleeding noted at the time of evaluation. Denies fever, chills, falls, headache, chest pain, shortness of breath. I discussed with patient we will apply a pressure dressing and reevaluate. He is agreeable to plan of care at this time. Is not having any pain. Upon reassessment, patient's condition has improved. Laceration is no longer bleeding. Discussed with patient to keep the nonadherent and Anat wrap on for the next 24 hours. We discussed follow-up with PCP. Discussed keeping the area clean and dry. We discussed return precautions to the ED which patient verbalized understanding. He remained hemodynamically stable and ambulatory from the ED. Critical Care Critical Care Time Critical Care Time: No
[2025-04-28 19:13] VITALS: BP 140/65; PULSE 75; RESP 18; TEMP 36.8; O2SAT 97; BMI 25.8
[2025-04-28 19:23] VITALS: BP 140/65; PULSE 75; RESP 18; O2SAT 97
--- NOTE | 2025-04-28 19:51 | PC.NURSE ---
Scant amount of blood on pressure dressing. 2x2 with coban applied.
[2025-04-28 19:52] VITALS: BP 117/57; PULSE 77; RESP 18; TEMP 37; O2SAT 95
== END 2025-04-28 19:55 | disposition home or self-care (01) ==
PROVIDERS: Emergency Provider Student in an Organized Health Care Education/Training Program; PCP Family Medicine
DX: S51.002A Unspecified open wound of left elbow, initial encounter (principal); F17.210 Nicotine dependence, cigarettes, uncomplicated; Z86.79 Personal history of other diseases of the circulatory system; Z79.01 Long term (current) use of anticoagulants; W22.8XXA Striking against or struck by other objects, initial encounter
CPT/HCPCS: 99282

== ENCOUNTER 2025-06-01 09:42 | Emergency (ER) | payer MEDICARE, SELFPAY ==
--- OUTSIDE RECORDS SUMMARY | 2024-12-29 11:00 | XMS_ITS ---
Author Organization [facility] Address [address] [place] [id number] Care Team Providers Care Multifocal Lens Assembler Name Role Phone Milka Yates Primary Care Provider [phone] Allergies No Known Allergies Results Component Value Reference Range Notes P-Basic Metabolic Panel (BMP ) Reviewed date:01/06/2025 09:10:23 AM Interpretation:gluc 105, Cr 1.33, gfr 54 Performing Lab: Notes/Report: CLIA: [id number] Chin Padilla MD, Accounts Payable Manager [address] [place] [address] , [address], [place] [address] Test performed by [facility], [facility] Sodium 137 135-145 mmol/L Potassium 4.3 3.5-5.3 mmol/L Chloride 102 97-108 mmol/L CO2 25 20-32 mmol/L Glucose 105 65-99 mg/dL BUN 12 8-23 mg/dL Creatinine 1.33 0.70-1.30 mg/dL Calcium 9.6 8.6-10.4 mg/dL eGFR by Creatinine 54 >59 mL/min/1.73m2 Holter Monitor- 48 hour Reviewed date:02/14/2025 11:33:33 AM Interpretation:see 02/09/2025 f/u OV Performing Lab: Notes/Report: see 02/09/2025 f/u OV REASON FOR VISIT 1 wk f/u Medications Medication SIG (Take, Route, Frequency, Duration) Notes Start Date End Date Status Advil PM 200-25 MG 1capsules at bedtime as needed Orally Once a day as needed Active Aspirin 81 81 MG 1 tablet Orally Once a day Active Oxazepam 15 MG 1 cap(s) orally 3 times a day prn 11/22/2019 Not-Taking hydroCHLOROthiazide 12.5 MG 1 tab(s) ora lly once a day prn; Duration: 30 day(s) 12/28/2018 Not-Taking dilTIAZem HCl ER 120 MG 1 capsule Orally once a day Active FiberCon 625 MG 2 orally once daily 01/08/2021 Not-Taking Align 4 MG 1 cap(s) orally once a day; Duration: 28 day(s) 01/08/2021 Not-Taking Clopidogrel Bisulfate 75 mg TAKE 1 TABLET DAILY Active Tretinoin 0.025 % 1 mya applied topically once a day (at bedtime); Duration: 30 day(s) 09/10/2022 Not-Taking Ezetimibe 10 MG 1 tablet Orally Once a day; Duration: 90 days Active Vitamin D3 50 MCG (2000 UT) 1 tab(s) ora lly once a day; Duration: 30 day(s) 06/10/2013 Active Citalopram Hydrobromide 20 MG 1 tab(s) o rally once a day; Duration: 90 days Active Donepezil HCl 10 MG 1 tablet at bedtime Orally Once a day; Duration: 30 days 12/08/2024 Active Trulance 3 MG 1 tab(s) orally once a day; Duration: 90 days 08/20/2022 Active Xarelto 15 MG 1 tablet Orally Once a day; Duration: 90 days Active B-12 1000 MCG 1 tab(s) orally once a day; Duration: 30 day(s) 06/10/2013 Active Atorvastatin Calcium 20 MG 1 tab(s) oral ly once a day; Duration: 30 days Active LORazepam 0.5 MG 1 tab(s) orally 3 times a day as needed Active Vital Signs Weight 170.8 lbs 12/29/2024 Blood pressure systolic 120 mm Hg 12/30/19 25 Blood pressure diastolic 70 mm Hg 025 Heart Rate 76 /min 12/29/2024 Height 68 in 12/29/2024 BMI 25.97 kg/m2 12/29/2024 Encounters Encounter Location Date Provider Diagnosis [facility]10 [facility] [address] [place] [id number] 12/29/2024 Milka Yates Symptomatic hypotension I95.9 and BMI 25.0-25.9,adult Z68.25 Assessments Encounter Date Diagnosis (ICD Code) Assessment Notes Treatment Notes Treatment Clinical Notes Section Notes 12/29/2024 Symptomatic hypotension (ICD-10 - I95.9) 12/29/2024 BMI 25.0-25.9,adult (ICD-10 - Z68.25) Plan Of Treatment Next Appt Details Follow Up: 4 Weeks, Reason: Progress Notes * Eliezer GILLIAM CDOB:1945 (79 yo M)Acc No.[id number]:12/29/2024 Progress Notes Patient: Eliezer CARRILLO Provider: Milka Yates M.D. :1945 A ge:79 Y S ex:Male Date:12/29/2024 Address:[place] [address], [id number] Subjective: * Chief Complaints: * 1 . 1 wk f/u. * HPI: C ardiology: The patient is here for a follow up on Hypotension and dizziness. Pt states he doing better. Pt states the dizziness is much better. Denies : Chest Pain. D enies : Short of Breath. D enies : Dizziness. D enies : Palpitations. * ROS: D ERMATOLOGY: no R telma. [...] Diagno stic Procedure: s ee above , [facility] 11/22/18. * Family History: F ather: , stroke, bladder [place]. M other: . M ann Grand Mother: [place].?Siblings: alive. Mireya jackson: alive. [...] since last visit: none. 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 Past smoking status: yes, PPD:1 , [...] Once a day , Taking Donepezil HCl 10 [...] N .K.D.A. Objective: * Vitals: W t: 170.8, Temp: 98.2, BP: 120/70, HR: 76, O2 Sat: 98% on RA, Nurse: SALLY, Ht: 68, BMI:25.97. * Examination: G eneral Examination: General Appearance: N AD. H EENT: a ctinic keratoses of the scalp. O ral cavity: t ongue and mucosa dry. N krysten: s upple, no lymphadenopathy. C hest: n ormal shape and expansion. H eart: R SR, ectopics. L ungs: c lear to auscultation. N eurologic Exam: n o focal deficits. P eripheral pulses: n ormal. B ack: n ontender . E xtremities: n o leg edema, varicosities present.? Assessment: * Assessment: 1. S ymptomatic hypotension - I95.9 (Primary) 2 . B MO 25.0-25.9,adult - Z68.25 Plan: * Treatment: Value Reference Range B UN 12 8-23 - mg/dL * C alcium 9.6 8.6-10.4 - mg/dL * C hloride 102 97-108 - mmol/L * C O2 25 20-32 - mmol/L * C reatinine 1.33 H 0.70-1.30 - mg/dL * G lucose 105 H 65-99 - mg/dL * P otassium 4.3 3.5-5.3 - mmol/L * S odium 137 135-145 - mmol/L * e GFR by Creatinine 54 L >59 - mL/min/1.73m2 * Vanesa Nguyen 01/06/2025 09:10 :16 AM EDT > See phone encounter ?Imaging: Holter Monitor- 48 hour (Performed Date - 12/30/2024)?see 02/09/2025 f/u OV* Lisa Griffith 12/30/2024 07:5 7:37 AM EDT > faxed to outpatient registration; patient informed * Procedure Codes: G 2211 Complex e/m visit add on, G8783 BP SCR PRFRM RCMDD DEFIND SCR INTVL, G8752 MOST RECENT SYSTOLIC BP < 140MM HG, G8754 MOST RECENT DIASTOLIC BP < 90MM HG, G8420 BMI<30 AND >=22 CALC & DOCU * Follow Up: 4 Weeks * Images: Billing Information: * Visit Code: 25085 Office Visit, Est Pt., Level 3. * Procedure Codes: G2211 Complex e/m visit add on. G8783 BP SCR PRFRM RCMDD DEFIND SCR INTVL. G8752 MOST RECENT SYSTOLIC BP < 140MM HG. G8754 MOST RECENT DIASTOLIC BP < 90MM HG. G8420 BMI<30 AND >=22 CALC & DOCU. * Electronic signature of Milka Yates MD on 06/01/2025 at 10:00 AM EST Sign off status: Pending * Provider: Milka Yates M.D. Date: 0 12/29/2024 Generated for Feliberto saunders/Gilma/eTransmitting on: 1 08/02/2024 10:00 AM EST History and Physical Notes * HPI (History of Present Illness) Category Sub-Category Detail Notes Category Not es Cardiology Short of Breath Chest Pain Palpitations Dizziness Examination Category Sub-Category Detail Notes Category Not es General Examination HEENT: actinic keratoses of the scalp Heart: RSR, ectopics Lungs: clear to auscultatio n Extremities: no leg edema, varico sities present General Appearance: NAD Neurologic Exam: no focal deficits Neck: supple, no lymphaden opathy Oral cavity: tongue and mucosa dr y Peripheral pulses: normal Back: nontender Chest: normal shape and exp ansion
--- OUTSIDE RECORDS SUMMARY | 2025-01-02 06:15 | XMS_ITS ---
Author Organization [facility] Address [address] [place] [id number] Care Team Providers Care Inspector Electromechanical Name Role Phone Milka Yates Primary Care Provider [phone] REASON FOR VISIT MENTAL DETERIORATION Medications Medication SIG (Take, Route, Frequency, Duration) Notes Start Date End Date Status hydroCHLOROthiazide 12.5 MG 1 tab(s) ora lly once a day prn; Duration: 30 day(s) 12/28/2018 Not-Taking Oxazepam 15 MG 1 cap(s) orally 3 times a day prn 11/22/2019 Not-Taking Tretinoin 0.025 % 1 mya applied topically once a day (at bedtime); Duration: 30 day(s) 09/10/2022 Not-Taking Align 4 MG 1 cap(s) orally once a day; Duration: 28 day(s) 01/08/2021 Not-Taking FiberCon 625 MG 2 orally once daily 01/08/2021 Not-Taking Donepezil HCl 10 MG 1 tablet at bedtime Orally Once a day; Duration: 30 days 12/08/2024 Active Xarelto 15 MG 1 tablet Orally Once a day; Duration: 90 days Active Clopidogrel Bisulfate 75 mg TAKE 1 TABLET DAILY Active Ezetimibe 10 MG 1 tablet Orally Once a day; Duration: 90 days Active Trulance 3 MG 1 tab(s) orally once a day; Duration: 90 days 08/20/2022 Active Vitamin D3 50 MCG (1999 UT) [...] once a day Active Vital Signs Weight 165.4 lbs 01/02/2025 Blood pressure systolic 90 mm Hg 01/03/20 25 Blood pressure diastolic 60 mm Hg 025 Heart Rate 89 /min 01/02/2025 Height 68 in 01/02/2025 BMI 25.15 kg/m2 01/02/2025 Encounters Encounter Location Date Provider Diagnosis [facility] [address] [facility] [address] [place] [address], [place] [id number] 01/02/2025 Milka Yates Weight loss, unintentional R63.4 ; Memory loss R41.3 ; Essential hypertension I10 and Tobacco abuse Z72.0 Assessments Encounter Date Diagnosis (ICD Code) Assessment Notes Treatment Notes Treatment Clinical Notes Section Notes 01/02/2025 Weight loss, unintentional (ICD-10 - R63.4) Ensure 1 can bid 01/02/2025 Memory loss (ICD-10 - R41.3) 01/02/2025 Essential hypertension (ICD-10 - I10) 01/02/2025 Tobacco abuse (ICD-10 - Z72.0) Plan Of Treatment Treatment Notes Assessment Notes Weight loss, unintentional Ensure 1 can bid Next Appt Details Follow Up: 1 Week, Reason: Progress Notes * Eliezer GILLIAM CDOB:1945 (79 yo M)Acc No.[id number]:01/02/2025 Progress Notes Patient: Eliezer CARRILLO Provider: Milka Yates M.D. :1945 A ge:79 Y S ex:Male Date:01/02/2025 Address: [address], [place], [id number] Subjective: * Chief Complaints: * 1 . MENTAL DETERIORATION. * HPI: C onstitutional: 79 year old male presents with c/o weight loss P t sts he is eating well, but sts he is losing alot of weight . N eurology: c/o Dizziness P t sts he is constantly dizzy. Pt sts when getting up or doing anything he feels very dizzy. Pt sts he can stand there for a while and then it will go away. Pt feels as if it is due to his BP. c/o memory loss P t sts his mental state is going down hill as he cannot remember anything anymore, and has to write everything down. * Medical History: * Medications: T aking dilTIAZem HCl ER [...] List reviewed and reconciled with the patient Objective: * Vitals: W t: 165.4, Temp: 98.6, BP: 90/60, HR: 89, O2 Sat: 95% on RA, Nurse: wojciech, Ht: 68, BMI:25.15. Assessment: * Assessment: 1. W eight loss, unintentional - R63.4 (Primary) 2 . M jovi loss - R41.3? 3. E ssential hypertension - I10 4 . T obacco abuse - Z72.0? Plan: * Treatment: * Procedure Codes: G 2211 Complex e/m visit add on * Follow Up: 1 Week * Images: Billing Information: * Visit Code: 39197 Office Visit, Est Pt., Level 3. * Procedure Codes: G2211 Complex e/m visit add on. * Electronic signature of Milka Yates MD on 06/01/2025 at 10:00 AM EST Sign off status: Pending * Provider: Milka Yates M.D. Date: 0 01/02/2025 Generated for Feliberto saunders/Gilma/Sahilransmitting on: 1 08/02/2024 10:00 AM EST History and Physical Notes * HPI (History of Present Illness) Category Sub-Category Detail Notes Category Not es Neurology Dizziness Pt sts he is con stantly dizzy. Pt sts when getting up or doing anything he feels very dizzy. Pt sts he can stand there for a while and then it will go away. Pt feels as if it is due to his BP memory loss Pt sts his mental st ate is going down hill as he cannot remember anything anymore, and has to write everything down Constitutional weight loss Pt sts he is eat ing well, but sts he is losing alot of weight
--- OUTSIDE RECORDS SUMMARY | 2025-01-09 08:15 | XMS_ITS ---
[facility] Address [address] [place] [phone] Care Team Providers Care Formulation Chemist Name Role Phone Milka Yates Primary Care Provider Allergies No Known Allergies Reason For Referral Reason Refer to Dr. Ivey f or assessment Diagnosis 1 Senile dementia (F03 .90) [facility] Referring Provider First Name Milka Jolly Referring Provider Last Name Milan Referring Provider Speciality Family Pra ctice General Notes Lisa Griffith 2024 02:08:50 PM > faxed to Dr. Ivey office; contact Kaleb at [phone] with information on appt time, Gladis Lisa 01/09/2025 04:27:04 PM > spoke with Raine; she will reach out to Kaleb to get the patient on the schedule Referral Priority Routine REASON FOR VISIT 1 Week Follow Up Medications Medication SIG (Take, Route, Frequency, Duration) Notes Start Date End Date Status Tretinoin 0.025 % 1 mya applied topically once a day (at bedtime); Duration: 30 day(s) 09/10/2022 Not-Taking Citalopram Hydrobromide 20 MG 1 tab(s) o rally once a day; Duration: 90 days Active Clopidogrel Bisulfate 75 mg TAKE 1 TABLET DAILY Active Ezetimibe 10 MG 1 tablet Orally Once a day; Duration: 90 days Active Donepezil HCl 10 MG 1 tablet at bedtime Orally Once a day; Duration: 30 days 12/08/2024 Active Vitamin D3 50 MCG (2000 UT) 1 tab(s) ora lly once a day; Duration: 30 day(s) 06/10/2013 Active LORazepam 0.5 MG 1 tab(s) orally 3 times a day as needed Active Atorvastatin Calcium 20 MG 1 tab(s) oral ly once a day; Duration: 30 days Active Xarelto 15 MG 1 tablet Orally [...] 1 capsule Orally once a day Active hydroCHLOROthiazide 12.5 MG 1 tab(s) ora lly once a day prn; Duration: 30 day(s) 12/28/2018 Not-Taking Oxazepam 15 MG 1 cap(s) orally 3 times a day prn 11/22/2019 Not-Taking Align 4 MG 1 cap(s) orally once a day; Duration: 28 day(s) 01/08/2021 Not-Taking FiberCon 625 MG 2 orally once daily 01/08/2021 Not-Taking Problems Problem Type SNOMED Code ICD Code Onset Dates Problem Status W/U Status Risk Notes Problem Senile dementia (70196689) Senile dementia (F03.90) Active confirmed Vital Signs Weight 168.8 lbs 01/09/2025 Blood pressure systolic 120 mm Hg 01/10/20 25 Blood pressure diastolic 68 mm Hg 025 Heart Rate 88 /min 01/09/2025 Height 68 in 01/09/2025 BMI 25.66 kg/m2 01/09/2025 Encounters Encounter Location Date Provider Diagnosis [facility] [address] [place] [id number] 01/09/2025 Milka Yates Senile dementia F03.90 Assessments Encounter Date Diagnosis (ICD Code) Assessment Notes Treatment Notes Treatment Clinical Notes Section Notes 01/09/2025 Senile dementia (ICD-10 - F03.90) Plan Of Treatment Referrals Referral Date Details 01/09/2025 01/09/2025, Refer to Dr. Ivey for assessment Next Appt Details Follow Up: 4 Weeks, Reason: Progress Notes * Eliezer GILLIAM CDOB:1945 (79 yo M)Acc No.[id number]:01/09/2025 Progress Notes Patient: Eliezer CARRILLO Provider: Milka Yates M.D. :1945 A ge:79 Y S ex:Male Date:01/09/2025 Address:[place] [address], [id number] Subjective: * Chief Complaints: * 1 . 1 Week Follow Up. * HPI: P sychology: The pt is here for a 1 week follow up on memory loss and weight loss. Pt states the dizziness is doing better. Son states he does have some concerns about the pt's mental state. His son wants to move him to [place] where son lives. Court hearing tomorrow. * ROS: D ERMATOLOGY: no R telma. [...] Diagno stic Procedure: s ee above , [facility] 11/22/18. * Family History: F ather: , stroke, bladder CA. M other: . M aternal Grand Mother: [place].?Siblings: alive. C renetta: alive. 3 brother(s) , 2 sister(s) - [...] since last visit: none. 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 Past smoking status: yes, PPD:1 , [...] mg Tablet TAKE 1 TABLET DAILY , Taking Citalopram Hydrobromide 20 MG Tablet 1 tab(s) orally once a day , Not- Taking Tretinoin 0.025 % Cream 1 mya applied [...] N .K.D.A. Objective: * Vitals: W t: 168.8, Temp: 97.7, BP: 120/68, HR: 88, O2 Sat: 97% on RA, Nurse: SALLY, Ht: 68, BMI:25.66. * Examination: G eneral Examination: General Appearance: N AD. H EENT: a ctinic keratoses of the scalp. O ral cavity: t ongue and mucosa dry. N krysten: s upple, no lymphadenopathy. C hest: n ormal shape and expansion. H eart: R SR, ectopics. L ungs: c lear to auscultation. N eurologic Exam: n o focal deficits. Short term memory deficit is severe.. P eripheral pulses: n ormal. B ack: n ontender . E xtremities: n o leg edema, varicosities present. Assessment: * Assessment: 1. S enile dementia - F03.90 (Primary) Plan: * Treatment: * Procedure Codes: G 2211 Complex e/m visit add on, G8783 BP SCR PRFRM RCMDD DEFIND SCR INTVL, G8752 MOST RECENT SYSTOLIC BP < 140MM HG, G8754 MOST RECENT DIASTOLIC BP < 90MM HG * Follow Up: 4 Weeks * Images: Billing Information: * Visit Code: 69220 Office Visit, Est Pt., Level 3. * Procedure Codes: G2211 Complex e/m visit add on. G8783 BP SCR PRFRM RCMDD DEFIND SCR INTVL. G8752 MOST RECENT SYSTOLIC BP < 140MM HG. G8754 MOST RECENT DIASTOLIC BP < 90MM HG. * Electronic signature of Milka Yates MD on 06/01/2025 at 10:01 AM EST Sign off status: Pending * Provider: Milka Yates M.D. Date: 0 01/09/2025 Generated for Feliberto saunders/Gilma/Lashaeitting on: 08/02/2024 10:01 AM EST History and Physical Notes * Examination Category Sub-Category Detail Notes Category Not es General Examination HEENT: actinic keratoses of the scalp Heart: RSR, ectopics Lungs: clear to auscultatio n Extremities: no leg edema, varico sities present General Appearance: NAD Neurologic Exam: no focal deficits. S hort term memory deficit is severe. Neck: supple, no lymphaden opathy Oral cavity: tongue and mucosa dr rosa Peripheral pulses: normal Back: nontender Chest: normal shape and exp ansion Consultation Request Notes Referral Date Referring Provider Referred Provider Not es 01/09/2025 Milka Yates , Refer to Lisy Ivey for assessment
--- OUTSIDE RECORDS SUMMARY | 2025-01-19 05:15 | XMS_ITS ---
Author Organization [facility] Address [address] [place] [id number] Care Team Providers Care Video Network Engineer Name Role Phone Milka Yates Primary Care Provider [place], Yusuf Unavailable [phone] Allergies No Known Allergies Results Component Value Reference Range Notes CBC Fingerstick (in house) Reviewed date:01/19/2025 05:34:08 PM Interpretation: Performing Lab: Notes/Report: wbc 10.9 3.5 - 10 lym 29.1% 15 - 50 mid 6.9% 2 - 15 gran 64.0% 35 - 80 rbc 4.21 3.5 - 5.5 hgb 13.8 11.5 - 16.5 hct 39.8 35 - 55 mcv 94.6 75 - 100 mch 32.8 25 - 35 mchc 34.7 31 - 38 plat 222 100 - 400 REASON FOR VISIT congestion and cough Medications Medication SIG (Take, Route, Frequency, Duration) Notes Start Date End Date Status Zithromax Z-Francis 250 MG as directed Orall y daily; Duration: 5 days 01/19/2025 Active dilTIAZem HCl ER 120 MG 1 capsule Orally once a day Active Ezetimibe 10 MG 1 tablet Orally Once a day; Duration: 90 days Active Citalopram Hydrobromide 20 MG 1 tab(s) orally once a day; Duration: 90 days Active Clopidogrel Bisulfate 75 mg TAKE 1 TABLET DAILY Active LORazepam 0.5 MG 1 tab(s) orally 3 ti mes a day as needed Active Donepezil HCl 10 MG 1 tablet at bedtime Orally Once a day; Duration: 30 days 12/08/2024 Active Xarelto 15 MG 1 tablet Orally Once a day; Duration: 90 days Active Trulance 3 MG 1 tab(s) orally once a day; Duration: 90 days 08/20/2022 Active Vitamin D3 50 MCG (2000 UT) [...] day as needed Active Vital Signs Weight 162.8 lbs 01/19/2025 Blood pressure systolic 94 mm Hg 01/20/20 25 Blood pressure diastolic 54 mm Hg 025 Heart Rate 83 /min 01/19/2025 Height 68 in 01/19/2025 BMI 24.75 kg/m2 01/19/2025 Encounters Encounter Location Date Provider Diagnosis [facility] [address] [facility] [address] [place], [place] [id number] 01/19/2025 Yusuf [place] Acute cough R05.1 ; Acute hypotension I95.9 and BMI 24.0-24.9, adult Z68.24 Assessments Encounter Date Diagnosis (ICD Code) Assessment Notes Treatment Notes Treatment Clinical Notes Section Notes 01/19/2025 Acute cough (ICD-10 - R05.1) 01/19/2025 Acute hypotension (ICD-10 - I95.9) Blood pressure journal, hold Verapamil for a few days 01/19/2025 BMI 24.0-24.9, adult (ICD-10 - Z68.24) Plan Of Treatment Medication Medication Name Sig Start Date Stop Date Notes Zithromax Z-Francis 250 MG as directed Orall y daily; Duration: 5 days 01/19/2025 Treatment Notes Assessment Notes Acute hypotension Blood pressure journ al, hold Verapamil for a few days Next Appt Details Follow Up: via phone to repo rt progress, Reason: Progress Notes * Eliezer GILLIAM CDOB:1945 (79 yo M)Acc No.[id number]:01/19/2025 Progress Notes Patient: Eliezer CARRILLO Provider: Saud Acevedo M.D. :1945 A ge:79 Y S ex:Male Date:01/19/2025 Address:[place] [address], [id number] Pcp:Milka Yates Subjective: * Chief Complaints: * 1 . Congestion and cough. * HPI: E NT/respiratory: 79 year old male presents with c/o cough P t complains of small amount of white sputum cough for a couple weeks. Associated with chest congestion and headache?. * ROS: D ERMATOLOGY: no R telma. n o H obinna. G ASTROENTEROLOGY: no N ausea. n o V omiting. U ROLOGY: no D ifficulty urinating. n [...] 2 years 05/2022, Colonoscopy Allran, tubular adenomas 05/20/2024. * Hospitalization/Major Diagno stic Procedure: H [facility]-Af[facility] 11/22/2018. * Family History: F ather: , stroke, bladder CA. M other: . M aternal Grand Mother: [place].?Siblings: alive. C hildren: alive. 3 brother(s) , 2 sister(s) - healthy. 1 son(s) , 1 daughter(s) - healthy. . * Social History: C URRENT TOBACCO USE: Yes S moking Status: Patient does smoke, packs per day: 1, number of cigarettes per day: 20, Since age of: 7, Smoking preference: cigarettes. C affeine: yes, frequency:daily. Exercise: yes, hiking. Home smoke detector use: yes. Marital Status: . New since last visit: none. 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 Past smoking status: yes, PPD:1 , [...] 1 tab(s) orally once a day , Discontinued Tretinoin 0.025 % Cream 1 mya applied topically once a day (at bedtime) , Discontinued FiberCon 625 MG Tablet 2 orally once daily , Discontinued Align 4 MG Capsule 1 cap(s) orally once a day , Discontinued Oxazepam 15 MG Capsule 1 cap(s) orally 3 times a day prn , Discontinued hydroCHLOROthiazide 12.5 MG Tablet 1 tab(s) orally once a day prn , Medication List reviewed and reconciled with the patient * Allergies: N .K.D.A. Objective: * Vitals: W t: 162.8, Temp: 97.9, BP: 94/54, HR: 83, O2 Sat: 96% on RA, Nurse: mynor, Ht: 68, BMI:24.75. * Examination: E NT/Respiratory: General Appearance: N AD. O ral cavity : e rythema without exudate on pharynx. H eart : R RR. L ungs: c lear to auscultation bilaterally. Assessment: * Assessment: 1. A cute cough - R05.1 (Primary) 2 . A cute hypotension - I95.9 3 . B OR 24.0-24.9, adult - Z68.24 Plan: * Treatment: Value Reference Range w bc 10.9 3.5 - 10 * l ym 29.1% 15 - 50 * m id 6.9% 2 - 15 * g ran 64.0% 35 - 80 * r bc 4.21 3.5 - 5.5 * h gb 13.8 11.5 - 16.5 * h ct 39.8 35 - 55 * m cv 94.6 75 - 100 * m ch 32.8 25 - 35 * m chc 34.7 31 - 38 * p lat 222 100 - 400 * Nata Pa 01/19/2025 10:55: 10 AM EDT > Provider reviewed results while patient in office. 2.?Acute hypotension? Notes: Blood pressure journal, hold Verapamil for a few days?? * Procedure Codes: G 2211 Complex e/[place] [address] CBC WITH AUTO DIFF, 46788 CAPILLARY BLOOD DRAW, G8420 BMI<30 AND >=22 CALC & DOCU, G8783 BP SCR PRFRM RCMDD DEFIND SCR INTVL, G8752 MOST RECENT SYSTOLIC BP < 140MM HG, G8754 MOST RECENT DIASTOLIC BP < 90MM HG * Follow Up: v ia phone to report progress * Images: Billing Information: * Visit Code: 39827 Office Visit, Est Pt., Level 3. * Procedure Codes: G2211 Complex e/[place]. [address] CBC WITH AUTO DIFF. 40068 CAPILLARY BLOOD DRAW. G8420 BMI<30 AND >=22 CALC & DOCU. G8783 BP SCR PRFRM RCMDD DEFIND SCR INTVL. G8752 MOST RECENT SYSTOLIC BP < 140MM HG. G8754 MOST RECENT DIASTOLIC BP < 90MM HG. * Electronic signature of Debi Acevedo MD on 06/01/2025 at 10:01 AM EST Sign off status: Pending * Provider: Saud Acevedo M.D. Date: 0 01/19/2025 Generated for Feliberto saunders/Gilma/eTransmitting on: 1 08/02/2024 10:01 AM EST History and Physical Notes * HPI (History of Present Illness) Category Sub-Category Detail Notes Category Not es ENT/respiratory cough Pt complains of small amount of white sputum cough for a couple weeks. Associated with chest congestion and headache Examination Category Sub-Category Detail Notes Category Not es ENT/Respiratory Oral cavity : erythema without exudate on pharynx Heart : RRR Lungs: clear to auscultatio n bilaterally General Appearance: NAD
--- OUTSIDE RECORDS SUMMARY | 2025-02-09 09:30 | XMS_ITS ---
Author Organization [facility] Address [address] [place] [id number] Care Team Providers Care Optometric Technician Name Role Phone Milka Yates Primary Care Provider [phone] Allergies No Known Allergies REASON FOR VISIT 4 weeks, see Holter Monitor results in patient docs Medications Medication SIG (Take, Route, Frequency, Duration) Notes Start Date End Date Status Citalopram Hydrobromide 20 MG 1 tab(s) orally once a day; Duration: 90 days Active Clopidogrel Bisulfate 75 mg TAKE 1 TABLET DAILY Active Ezetimibe 10 MG 1 tablet Orally Once a day; Duration: 90 days Active Donepezil HCl 10 MG 1 tablet at bedtime Orally Once a day; Duration: 30 days 12/08/2024 Active risperiDONE 0.25 MG 1 tablet Orally Once a day; Duration: 30 days 02/09/2025 Active Vitamin D3 50 MCG (1999 UT) 1 tab(s) orally once a day; Duration: 30 day(s) 06/10/2013 Active LORazepam 0.5 MG 1 tab(s) orally 3 ti mes a day as needed Active Xarelto 15 MG 1 tablet Orally Once a day; Duration: 90 days Active Trulance 3 MG 1 tab(s) orally once a day; Duration: 90 days 08/20/2022 Active Aspirin 81 81 MG 1 tablet Orally Once a day Active Advil PM 200-25 MG 1capsules at bedtime as needed Orally Once a day as needed Active dilTIAZem HCl ER 120 MG 1 capsule Orally once a day Not-Taking Atorvastatin Calcium 20 MG 1 tab(s) orally once a day; Duration: 30 days Active B-12 1000 MCG 1 tab(s) orally once a day; Duration: 30 day(s) 06/10/2013 Active Vital Signs Weight 173.2 lbs 02/09/2025 Blood pressure systolic 126 mm Hg 02/10/20 25 Blood pressure diastolic 70 mm Hg 025 Heart Rate 69 /min 02/09/2025 Height 68 in 02/09/2025 BMI 26.33 kg/m2 02/09/2025 Encounters Encounter Location Date Provider Diagnosis [facility] [address] [facility] [address] [place] [id number] 02/09/2025 Milka Yates 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 ; Memory loss R41.3 ; Tobacco abuse Z72.0 and Essential hypertension I10 Assessments Encounter Date Diagnosis (ICD Code) Assessment Notes Treatment Notes Treatment Clinical Notes Section Notes 02/09/2025 Senile dementia (ICD-10 - F03.90) 02/09/2025 Memory loss (ICD-10 - R41.3) 02/09/2025 Tobacco abuse (ICD-10 - Z72.0) 02/09/2025 Essential hypertension (ICD-10 - I10) Plan Of Treatment Medication Medication Name Sig Start Date Stop Date Notes risperiDONE 0.25 MG 1 tablet Orally Once a day; Duration: 30 days 02/09/2025 Next Appt Details Follow Up: 1 Week, Reason: Progress Notes * Eliezer GILILAM CDOB:1945 (79 yo M)Acc No.[id number]:02/09/2025 Progress Notes Patient: Eliezer CARRILLO Provider: Milka Yates M.D. :1945 A ge:79 Y S ex:Male Date:02/09/2025 Address:[id number] Subjective: * Chief Complaints: * 1 . 4 weeks, see Holter Monitor results in patient docs. * HPI: N eurology: The pt is here for a check up on Memory loss. Pt states he is still planning to move to [place]. Pt states he did see Dr Ivey. See pt docs. No medication changes. Follow-up in March. Granddaughter (who accompanies him today) spends 3hrs in AM, 3hrs in PM. Hopes to get off probation so that family could live with him, or that he could go to nursing facility. Court date is 02/21. 79 year old male presents with c/o Memory Loss. * ROS: D ERMATOLOGY: no R telma. [...] since last visit: none. 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 Past smoking status: yes, PPD:1 , years:45 ,determination:. Occup. exposure: none. Recreational drug use: no. Alcohol: no. Travel ouside [place]: yes. * Medications: T aking Advil PM 200-25 MG Capsule 1capsules at [...] 1 tab(s) orally once a day , Not-Taking dilTIAZem HCl ER 120 MG Capsule Extended Release 12 Hour 1 capsule Orally once a day , Discontinued Zithromax Z-Francis 250 MG Tablet as directed Orally daily , Medication List reviewed and reconciled with the patient * Allergies: N .K.D.A. Objective: * Vitals: W t: 173.2, Temp: 98.4, BP: 126/70, HR: 69, O2 Sat: 98% on RA, Nurse: SALLY, Ht: 68, BMI:26.33. * Examination: G eneral Examination: General Appearance: [...] 1. S enile dementia - F03.90 (Primary) 2 . M jovi loss - R41.3 ?3. T obacco abuse - Z72.0 4 . E ssential hypertension - I10 Plan: * Treatment: * Procedure Codes: G 2211 Complex e/m visit add on * Follow Up: 1 Week * Images: Billing Information: * Visit Code: 46469 Office Visit, Est Pt., Level 4. * Procedure Codes: G2211 Complex e/m visit add on. * Electronic signature of Milka Yates MD on 06/01/2025 at 10:01 AM EST Sign off status: Pending * Provider: Milka Yates M.D. Date: 0 02/09/2025 Generated for Keni nicky/Gilma/eTransmitting on: 1 08/02/2024 10:01 AM EST History and Physical Notes * HPI (History of Present Illness) Category Sub-Category Detail Notes Category Not es Neurology Memory Loss Examination Category Sub-Category Detail Notes Category Not [...]
--- OUTSIDE RECORDS SUMMARY | 2025-02-16 08:15 | XMS_ITS ---
Author Organization [facility] Address [address] [place] [id number] Care Team Providers Care Attacher Name Role Phone Milka Yates Primary Care Provider Rena Ferris Unavailable [phone] Allergies No Known Allergies REASON FOR VISIT 1 week Medications Medication SIG (Take, Route, Frequency, Duration) Notes Start Date End Date Status Xarelto 15 MG 1 tablet Orally Once a day; Duration: 90 days Active Trulance 3 MG 1 tab(s) orally once a day; Duration: 90 days 08/20/2022 Active Vitamin D3 50 MCG (2000 UT) 1 tab(s) orally once a day; Duration: 30 day(s) 06/10/2013 Active LORazepam 0.5 MG 1 tab(s) orally 3 ti mes a day as needed Active Atorvastatin Calcium 20 MG 1 tab(s) orally once a day; Duration: 30 days Active risperiDONE 0.25 MG 1 tablet Orally Once a day Active B-12 1000 MCG 1 tab(s) orally once a day; Duration: 30 day(s) 06/10/2013 Active dilTIAZem HCl ER 120 MG 1 capsule Orally once a day Not-Taking Aspirin 81 81 MG 1 tablet Orally Once a day Active Advil PM 200-25 MG 1capsules at bedtime as needed Orally Once a day as needed Active Donepezil HCl 10 MG 1 tablet at bedtime Orally Once a day; Duration: 30 days 12/08/2024 Active Citalopram Hydrobromide 20 MG 1 tab(s) orally once a day; Duration: 90 days Active Clopidogrel Bisulfate 75 mg TAKE 1 TABLET DAILY Active Ezetimibe 10 MG 1 tablet Orally Once a day; Duration: 90 days Active Immunizations Vaccine Route Administration Date Status Comme nts Fluzone High Dose (65yr and older) IM Intramuscular 02/16/2025 Administered Vital Signs Weight 172 lbs 02/16/2025 Blood pressure systolic 110 mm Hg 02/17/20 25 Blood pressure diastolic 60 mm Hg 025 Heart Rate 82 /min 02/16/2025 Height 68 in 02/16/2025 BMI 26.15 kg/m2 02/16/2025 Encounters Encounter Location Date Provider Diagnosis [facility] [address] [place] [id number] 02/16/2025 Rena Ferris 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 ; Memory loss R41.3 and Encounter for immunization Z23 Assessments Encounter Date Diagnosis (ICD Code) Assessment Notes Treatment Notes Treatment Clinical Notes Section Notes 02/16/2025 Senile dementia (ICD-10 - F03.90) Patient feels medication is helping. Will continue and f/u with Dr. Yates. 02/16/2025 Memory loss (ICD-10 - R41.3) 02/16/2025 Encounter for immunization (ICD-10 - Z23) Plan Of Treatment Medication Medication Name Sig Start Date Stop Date Notes risperiDONE 0.25 MG 1 tablet Orally Once a day Treatment Notes Assessment Notes Senile dementia Patient feels medica tion is helping. Will continue and f/u with Dr. Yates. Next Appt Details Follow Up: [address] Yates, Reason: Progress Notes * Eliezer GILLIAM CDOB:1945 (79 yo M)Acc No.[id number]:02/16/2025 Progress Notes Patient: Eliezer CARRILLO Provider: ADRIANA Borrego :1945 A ge:79 Y S ex:Male Date:02/16/2025 Address: [id number] Pcp:Milka Yates Subjective: * Chief Complaints: * 1 . 1 week. * HPI: N eurology: 79 year old male presents with c/o Memory Loss P t is here today for a 1 week f/u on memory loss. H PI: c/o Patient is here today for P t sts he does want to get his flu shot today as well. * ROS: D ERMATOLOGY: no R telma. [...] last visit: none. 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 Past smoking status: yes, PPD:1 , years:45 [...] tab(s) orally once a day , Taking risperiDONE 0.25 MG Tablet 1 tablet Orally Once a day , Not-Taking dilTIAZem HCl ER 120 MG Capsule Extended Release 12 Hour 1 capsule Orally once a day , Medication List reviewed and reconciled with the patient * Allergies: N .K.D.A. Objective: * Vitals: W t: 172, Temp: 98.4, BP: 110/60, HR: 82, O2 Sat: 95% on RA, Nurse: kristopher, Ht: 68, BMI:26.15. * Examination: G eneral Examination: General Appearance: N AD. C hest: n ormal shape and expansion. H eart: R SR. L ungs: c lear to auscultation. Assessment: * Assessment: 1. S enile dementia - F03.90 (Primary) 2 . M jovi loss - R41.3 ?3. E ncounter for immunization - Z23 Plan: * Treatment: * Immunizations: Fluzone High Dose (65yr and older) : 5 mL (Route: Intramuscular) given by KRISTOPHER Burrows on Right Arm (Encounter for immunization) * Procedure Codes: G 2211 Complex e/m visit add on, 3074F SYST BP LT 130 MM HG, 3078F DIAST BP < 80 MM HG * Follow Up: [address] Yates * Images: Billing Information: * Visit Code: 92942 Office Visit, Est Pt., Level 3. * Procedure Codes: G2211 Complex e/m visit add on. 3074F SYST BP LT 130 MM HG. 3078F DIAST BP < 80 MM HG. * Electronic signature of ADRIANA Perea on 06/01/2025 at 10:00 AM EST Sign off status: Pending * Provider: ADRIANA Borrego Date: 0 02/16/2025 Generated for Feliberto saunders/Gilma/eTransmitting on: 1 08/02/2024 10:00 AM EST History and Physical Notes * HPI (History of Present Illness) Category Sub-Category Detail Notes Category Not es Neurology Memory Loss Pt is here today for a 1 week f/u on memory loss HPI Patient is here today for Pt sts he does want to get his flu shot today as well Examination Category Sub-Category Detail Notes Category Not es General Examination Heart: RSR Lungs: clear to auscultatio n General Appearance: NAD Chest: normal shape and exp ansion
--- OUTSIDE RECORDS SUMMARY | 2025-03-13 10:45 | XMS_ITS ---
[facility] Organization [facility] Address [address] [place] [phone] Care Team Providers Care Pesticide Control Inspector Name Role Phone Milka Yates Primary Care Provider Allergies No Known Allergies Reason For Referral Reason Refer to [facility]. Diagnosis 1 Senile dementia (F03 .90) [facility] Referring Provider First Name Milka Jolly Referring Provider Last Name Milan Referring Provider Speciality Family Pra ctice Referred Provider Specialty Neurology General Notes Lisa Griffith 2024 08:57:04 AM >Thank you for your referral to Neurosurgery. We will review your patient's records and contact you as quickly as possible. Please provide us with the clinical and demographic information we need for review. The Department of Neurosurgery requires that all new patients have had imaging (MRI or CT only) in the past six months which demonstrates an abnormality. Please fax recent office notes, history and physical, relevant radiologic study reports, copy of the patient's insurance card, and this form to [phone]. If you have any questions, please contact our offices directly. Referrals will be denied if all of this information is not received (exception: movement disorders). Please note, physician requested may not be the physician who sees the patient. This is based on urgency and each physician's specialty. Faxed all information to Neurosurgery Referral Priority Routine REASON FOR VISIT short term memory Medications Medication SIG (Take, Route, Frequency, Duration) Notes Start Date End Date Status Xarelto 15 MG 1 tablet Orally Once a day; Duration: 90 days Active LORazepam 0.5 MG 1 tab(s) orally 3 ti mes a day as needed Active Atorvastatin Calcium 20 MG 1 tab(s) oral ly once a day; Duration: 30 days Active Trulance 3 MG 1 tab(s) orally once a day; Duration: 90 days 08/20/2022 Active Vitamin D3 50 MCG (2000 UT) 1 tab(s) ora lly once a day; Duration: 30 day(s) 06/10/2013 Active Advil PM 200-25 MG 1capsules at bedtime as needed Orally Once a day as needed Active B-12 1000 MCG 1 tab(s) orally once a day; Duration: 30 day(s) 06/10/2013 Active Aspirin 81 81 MG 1 tablet Orally Once a day Active risperiDONE 0.25 MG 1 tablet Orally Once a day Active Citalopram Hydrobromide 20 MG 1 tab(s) orally once a day; Duration: 90 days Active Clopidogrel Bisulfate 75 mg TAKE 1 TABLET DAILY Active Ezetimibe 10 MG 1 tablet Orally Once a day; Duration: 90 days Active Donepezil HCl 10 MG 1 tablet at bedtime Orally Once a day; Duration: 30 days 12/08/2024 Active Vital Signs Weight 174.2 lbs 03/13/2025 Blood pressure systolic 100 mm Hg 03/13/20 25 Blood pressure diastolic 70 mm Hg 025 Heart Rate 61 /min 03/13/2025 Height 68 in 03/13/2025 BMI 26.48 kg/m2 03/13/2025 Encounters Encounter Location Date Provider Diagnosis [facility] [address] [facility] [address] [place] [phone] 03/13/2025 Milka Yates Senile dementia F03.90 and Memory loss R41.3 Assessments Encounter Date Diagnosis (ICD Code) Assessment Notes Treatment Notes Treatment Clinical Notes Section Notes 03/13/2025 Senile dementia (ICD-10 - F03.90) 03/13/2025 Memory loss (ICD-10 - R41.3) Plan Of Treatment Referrals Referral Date Details 03/13/2025 03/13/2025, Refer to [facility]. Next Appt Details Follow Up: 4 Weeks, Reason: Progress Notes * Eliezer GILLIAM CDOB:1945 (79 yo M)Acc No.[id number]:03/13/2025 Progress Notes Patient: Eliezer CARRILLO Provider: Milka Yates M.D. :1945 A ge:79 Y S ex:Male Date:03/13/2025 Address: [address], [id number] Subjective: * Chief Complaints: * 1 . Short term memory. * HPI: N eurology: 79 year old male presents with c/o memory loss P t here for short term memory loss. Pt states this started few months ago, and he can not remember anything. He got a computer when he was NOT supposed to have one.Does have a court date tomorrow. Saw Dr. Ivey this morning.. * ROS: C ONSTITUTIONAL: Positive for A nother physician seen since last visit?, yes? Change in medication since last visit?,no ? Are you taking antibiotics?,no Are you taking steroids?no . D ERMATOLOGY: no R telma. n o [...] since last visit: none. 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 Past smoking status: yes, PPD:1 , [...] 1 tablet Orally Once a day , Discontinued dilTIAZem HCl ER 120 MG Capsule Extended Release 12 Hour 1 capsule Orally once a day , Medication List reviewed and reconciled with the patient * Allergies: N .K.D.A. Objective: * Vitals: W t: 174.2, Temp: 97.4, BP: 100/70, HR: 61, O2 Sat: 96% on RA, Nurse: eduardo, Ht: 68, BMI:26.48. * Examination: G eneral Examination: General Appearance: [...] . M jovi loss - R41.3 ? Plan: * Treatment: * Procedure Codes: G 2211 Complex e/m visit add on * Follow Up: 4 Weeks * Images: Billing Information: * Visit Code: 86860 Office Visit, Est Pt., Level 3. * Procedure Codes: G2211 Complex e/m visit add on. * Electronic signature of Milka Yates MD on 06/01/2025 at 10:02 AM EST Sign off status: Pending * Provider: Milka Yates M.D. Date: Generated for Feliberto saunders/Gilma/eTransmitting on: 08/02/2024 10:02 AM EST History and Physical Notes * HPI (History of Present Illness) Category Sub-Category Detail Notes Category Not es Neurology memory loss Pt here for shor t term memory loss. Pt states this started few months ago, and he can not remember anything. He got a computer when he was NOT supposed to have one.Does have a court date tomorrow. Saw Dr. Ivey this morning. Examination Category Sub-Category Detail Notes Category Not es General Examination HEENT: actinic keratoses of the scalp Heart: RSR, ectopics Lungs: clear to auscultatio n Extremities: no leg edema, varico sities present General Appearance: NAD Neurologic Exam: no focal deficits. S hort term memory deficit is severe. Neck: supple, no lymphaden opathy Oral cavity: tongue and mucosa dr lee Peripheral pulses: normal Back: nontender Chest: normal shape and exp ansion Consultation Request Notes Referral Date Referring Provider Referred Provider Not es 03/13/2025 Milka Yates , Refer to [facility].
--- OUTSIDE RECORDS SUMMARY | 2025-04-10 08:30 | XMS_ITS ---
Author Organization [facility] Address [address] [place] [phone] Care Team Providers Care Crawler Tractor Operator Name Role Phone Milka Yates Primary Care Provider [phone] Pam Brown Unavailable [phone] Allergies No Known Allergies REASON FOR VISIT memory loss Medications Medication SIG (Take, Route, Frequency, Duration) Notes Start Date End Date Status B-12 1000 MCG 1 tab(s) orally once a day; Duration: 30 day(s) 06/10/2013 Active Aspirin 81 81 MG 1 tablet Orally Once a day Active Citalopram Hydrobromide 20 MG 1 tab(s) orally once a day Active Advil PM 200-25 MG 1capsules at bedtime as needed Orally Once a day as needed Active Xarelto 15 MG 1 tablet Orally Once a day; Duration: 90 days Active risperiDONE 0.25 MG 1 tablet Orally Once a day Active Ezetimibe 10 MG 1 tablet Orally Once a day; Duration: 90 days Active Donepezil HCl 10 MG 1 tablet at bedtime Orally Once a day 12/08/2024 Active Trulance 3 MG 1 tab(s) orally once a day; Duration: 90 days 08/20/2022 Active Clopidogrel Bisulfate 75 mg TAKE 1 TABLET DAILY Active LORazepam 0.5 MG 1 tab(s) orally 3 ti mes a day as needed Active Atorvastatin Calcium 20 MG 1 tab(s) oral ly once a day; Duration: 30 days Active Vitamin D3 50 MCG (1999 UT) 1 tab(s) ora lly once a day; Duration: 30 day(s) 06/10/2013 Active Vital Signs Weight 174 lbs 04/10/2025 Blood pressure systolic 124 mm Hg 04/10/20 25 Blood pressure diastolic 60 mm Hg 025 Heart Rate 82 /min 04/10/2025 Height 68 in 04/10/2025 BMI 26.45 kg/m2 04/10/2025 Encounters Encounter Location Date Provider Diagnosis [facility] [address] [place] [phone] 04/10/2025 Pam Brown Senile dementia F03.90 ; Memory loss R41.3 and Tobacco abuse Z72.0 Assessments Encounter Date Diagnosis (ICD Code) Assessment Notes Treatment Notes Treatment Clinical Notes Section Notes 04/10/2025 Senile dementia (ICD-10 - F03.90) he has been followed by neuro with appt with [facility]; according to notes he may be relocating to [facility] to live with his son 04/10/2025 Memory loss (ICD-10 - R41.3) 04/10/2025 Tobacco abuse (ICD-10 - Z72.0) tobacco cessation encouraged; he smoke 1 PPD Plan Of Treatment Medication Medication Name Sig Start Date Stop Date Notes Citalopram Hydrobromide 20 MG 1 tab(s) orally once a day risperiDONE 0.25 MG 1 tablet Orally Once a day Donepezil HCl 10 MG 1 tablet at bedtime Orally Once a day 12/08/2024 Treatment Notes Assessment Notes Senile dementia he has been followed by neuro with appt with [facility]; according to notes he may be relocating to [facility] to live with his son Tobacco abuse tobacco cessation en couraged; he smoke 1 PPD Next Appt Details Follow Up: keep appt with Dr David Yates, Reason: Progress Notes * Eliezer GILLIAM CDOB:1945 (79 yo M)Acc No.[id number]:04/10/2025 Progress Notes Patient: Eliezer CARRILLO Provider: ZIA [place] :1945 A ge:79 Y S ex:Male Date:04/10/2025 Address:[place] [address], [id number] Pcp:Milka Yates Subjective: * Chief Complaints: * 1 . Memory loss. * HPI: N eurology: was evaluated by [facility] and has had a MRI; notes reviewed; he takes his meds as directed; son is coming tomorrow to discuss future living arrangements; granddaughter helps with all; currently he is living [place]; he does write to do things down. 79 year old male presents with c/o Memory Loss P t states here for memory loss. Pts granddaughter states he does not know he is on meds for it already. Pts daughter states he does know what he did yesterday. * ROS: D ERMATOLOGY: no R telma. n o H obinna. G ASTROENTEROLOGY: no N ausea. n o V omiting. n o D iarrhea.? U ROLOGY: no B lood in urine. n o F requent urination. ? * Medical History: H ypercholestrolemia, COPD [Chronic [...] since last visit: none. 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 Past smoking status: yes, PPD:1 , [...] Tablet TAKE 1 TABLET DAILY , Taking risperiDONE 0.25 MG Tablet 1 tablet Orally Once a day , Taking Xarelto 15 MG Tablet 1 tablet Orally Once a day , Taking Citalopram Hydrobromide 20 MG Tablet 1 tab(s) orally once a day , Medication List reviewed and reconciled with the patient * Allergies: N .K.D.A. Objective: * Vitals: W t: 174, Temp: 97.7, BP: 124/60, HR: 82, Nurse: pe, Ht: 68, BMI:26.45. * Examination: G eneral Examination: General Appearance: N AD, appears healthy, alert, pleasant, well nourished and hydrated. H eart: R RR. L ungs: C TAB A&P. ? N eurology: Gait: n ormal. P sychology: Grooming : g ood. M ood : p leasant. N eurologic Exam: S mando is clear and he articulates well. H e does remember that he went to worship yesterday; he remembers the date of his next appt with Dr. Yates. Assessment: * Assessment: 1. S enile dementia - F03.90 (Primary) 2 . M jovi loss - R41.3 ?3. T obacco abuse - Z72.0 Plan: * Treatment: 2. M jovi loss Continue Donepezil HCl Tablet, 10 MG, 1 tablet at bedtime, Orally, Once a day. 3. T obacco abuse Notes: tobacco cessation encouraged; he smoke 1 PPD 4. O thers Continue Citalopram Hydrobromide Tablet, 20 MG, 1 tab(s), orally, once a day. * Procedure Codes: G 2211 Complex e/m visit add on, G8783 BP SCR PRFRM RCMDD DEFIND SCR INTVL, G8752 MOST RECENT SYSTOLIC BP < 140MM HG, G8754 MOST RECENT DIASTOLIC BP < 90MM HG, 3074F SYST BP LT 130 MM HG, 3078F DIAST BP < 80 MM HG * Follow Up: daphne mitchell appt with Dr. Yates * Images: Billing Information: * Visit Code: 23443 Office Visit, Est Pt., Level 3. * Procedure Codes: G2211 Complex e/m visit add on. G8783 BP SCR PRFRM RCMDD DEFIND SCR INTVL. G8752 MOST RECENT SYSTOLIC BP < 140MM HG. G8754 MOST RECENT DIASTOLIC BP < 90MM HG. 3074F SYST BP LT 130 MM HG. 3078F DIAST BP < 80 MM HG. * Electronic signature of Trina Brown APRN on 06/01/2025 at 10:00 AM EST Sign off status: Pending * Provider: ZIA Hills Date: 06/10/2024 Generated for Feliberto saunders/Gilma/Milady on: 08/02/2024 10:00 AM EST History and Physical Notes * HPI (History of Present Illness) Category Sub-Category Detail Notes Category Not es Neurology Memory Loss Pt states here f or memory loss. Pts granddaughter states he does not know he is on meds for it already. Pts daughter states he does know what he did yesterday Examination Category Sub-Category Detail Notes Category Not es General Examination Heart: RRR Lungs: CTAB A&P General Appearance: NAD, appears healthy , alert, pleasant, well nourished and hydrated Neurology Gait: normal Psychology Neurologic Exam: Speech is clear and he a rticulates well He does remember that he went to worship yesterday; he remembers the date of his next appt with Dr. Yates Grooming : good Mood : pleasant
--- OUTSIDE RECORDS SUMMARY | 2025-04-20 05:45 | XMS_ITS ---
Author Organization [facility] Address [address] [place] [phone] Care Team Providers Care Fabric Inspector Name Role Phone Milka Yates Primary Care Provider Nino Ferrisa Unavailable [phone] Allergies No Known Allergies Results Component Value Reference Range Notes CBC Fingerstick (in house) Reviewed date:04/20/2025 11:39:42 AM Interpretation: Performing Lab: Notes/Report: wbc 6.4 3.5 - 10 lym 27.9 15 - 50 mid 6.2 2 - 15 gran 65.9 35 - 80 rbc 4.76 3.5 - 5.5 hgb 15.4 11.5 - 16.5 hct 45.6 35 - 55 mcv 95.8 75 - 100 mch 32.3 25 - 35 mchc 33.8 31 - 38 plat 130 100 - 400 REASON FOR VISIT upper respiratory Medications Medication SIG (Take, Route, Frequency, Duration) Notes Start Date End Date Status Vitamin D3 50 MCG (1999) 1 tab(s) ora lly once a day; Duration: 30 day(s) 06/10/2013 Active Trulance 3 MG 1 tab(s) orally once a day; Duration: 90 days 08/20/2022 Active Ezetimibe 10 MG 1 tablet Orally Once a day; Duration: 90 days Active Albuterol Sulfate HFA 108 (90 Base) MCG/ACT 1 puff Inhalation every 4 hrs, prn 04/20/2025 Active Benzonatate 200 MG 1 capsule Orally 3 t imes a day, prn 04/20/2025 Active Advil PM 200-25 MG 1capsules at [...] ti mes a day as needed Active Clopidogrel Bisulfate 75 mg TAKE 1 TABLET DAILY Active Xarelto 15 MG 1 tablet Orally Once a day; Duration: 90 days Active Donepezil HCl 10 MG 1 tablet at bedtime Orally Once a day 12/08/2024 Active risperiDONE 0.25 MG 1 tablet Orally Once a day Active Citalopram Hydrobromide 20 MG 1 tab(s) orally once a day Active Vital Signs Weight 175.2 lbs 04/20/2025 Blood pressure systolic 100 mm Hg 04/20/20 25 Blood pressure diastolic 55 mm Hg 025 Heart Rate 71 /min 04/20/2025 Height 68 in 04/20/2025 BMI 26.64 kg/m2 04/20/2025 Encounters Encounter Location Date Provider Diagnosis [facility] [address] [facility] [address] [place] [phone] 04/20/2025 Rena Ferris Acute URI 465.9 Assessments Encounter Date Diagnosis (ICD Code) Assessment Notes Treatment Notes Treatment Clinical Notes Section Notes 04/20/2025 Acute URI (ICD-10 - 465.9) Plan Of Treatment Medication Medication Name Sig Start Date Stop Date Notes Albuterol Sulfate HFA 108 (9 0 Base) MCG/ACT 1 puff Inhalation every 4 hrs, prn 04/20/2025 Benzonatate 200 MG 1 capsule Orally 3 t imes a day, prn 04/20/2025 Next Appt Details Follow Up: prn, Reason: Progress Notes * Eliezer GILLIAM CDOB:1945 (79 yo M)Acc No.[id number]:04/20/2025 Progress Notes Patient: Eliezer CARRILLO Provider: ADRIANA Borrego :1945 A ge:79 Y S ex:Male Date:04/20/2025 Address: [id number] Pcp:Milka Yates Subjective: * Chief Complaints: * 1 . Upper respiratory. * HPI: E NT/respiratory: 79 year old male presents with c/o cough. c/o chest congestion P t presents today with c/o cough and chest congestion for a couple weeks. Pt sts that he is coughing up a lot of phlegm. Pt sts that the sputum production is white to yellow in color. * ROS: D ERMATOLOGY: no R telma. [...] since last visit: none. 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 Past smoking status: yes, PPD:1 , [...] Tablet TAKE 1 TABLET DAILY , Taking Xarelto 15 MG Tablet 1 tablet Orally Once a day , Taking Donepezil HCl 10 MG Tablet 1 tablet at bedtime Orally Once a day , Taking risperiDONE 0.25 MG Tablet 1 tablet Orally Once a day , Taking Citalopram Hydrobromide 20 MG Tablet 1 tab(s) orally once a day , Medication List reviewed and reconciled with the patient * Allergies: N .K.D.A. Objective: * Vitals: W t: 175.2, Temp: 97.6, BP: 100/55, HR: 71, O2 Sat: 98% on RA, Nurse: RADHA, Ht: 68, BMI:26.64. * Examination: E NT/Respiratory: General Appearance: N AD. E ars: a uditory canals normal bilaterally, TM's WNL. N ose : t urbinates red, congested. S inuses : n on tender bilaterally. O ral cavity : e rythema without exudate on pharynx. N krysten : s upple, no cervical lymphadenopathy. H eart : R RR, normal S1 S2, no murmurs. L ungs: e xpiratory wheezes, no rales. Assessment: * Assessment: 1. A nicholas URI - 465.9 (Primary) Plan: * Treatment: Value Reference Range w bc 6.4 3.5 - 10 * l ym 27.9 15 - 50 * m id 6.2 2 - 15 * g ran 65.9 35 - 80 * r bc 4.76 3.5 - 5.5 * h gb 15.4 11.5 - 16.5 * h ct 45.6 35 - 55 * m cv 95.8 75 - 100 * m ch 32.3 25 - 35 * m chc 33.8 31 - 38 * p lat 130 100 - 400 * TanyaChristy 04/20/2025 11 :39:32 AM EST > results reviewed w/ pt in office * Procedure Codes: G 2211 Complex e/[place], [address] CAPILLARY BLOOD DRAW, 51373 CBC WITH AUTO DIFF, G8783 BP SCR PRFRM RCMDD DEFIND SCR INTVL, G8752 MOST RECENT SYSTOLIC BP < 140MM HG, G8754 MOST RECENT DIASTOLIC BP < 90MM HG, 3074F SYST BP LT 130 MM HG, 3078F DIAST BP < 80 MM HG * Follow Up: p rn * Images: Billing Information: * Visit Code: 04738 Office Visit, Est Pt., Level 3. * Procedure Codes: G2211 Complex e/[place]. [address] CAPILLARY BLOOD DRAW. 84647 CBC WITH AUTO DIFF. G8783 BP SCR PRFRM RCMDD DEFIND SCR INTVL. G8752 MOST RECENT SYSTOLIC BP < 140MM HG. G8754 MOST RECENT DIASTOLIC BP < 90MM HG. 3074F SYST BP LT 130 MM HG. 3078F DIAST BP < 80 MM HG. * Electronic signature of ADRIANA Perea on 06/01/2025 at 10:01 AM EST Sign off status: Pending * Provider: ADRIANA Borrego Date: 06/20/2024 Generated for Feliberto saunders/Gilma/eTransmitting on: 08/02/2024 10:01 AM EST History and Physical Notes * HPI (History of Present Illness) Category Sub-Category Detail Notes Category Not es ENT/respiratory cough chest congestion Pt presents today wi th c/o cough and chest congestion for a couple weeks. Pt sts that he is coughing up a lot of phlegm. Pt sts that the sputum production is white to yellow in color Examination Category Sub-Category Detail Notes Category Not es ENT/Respiratory Oral cavity : erythema without exudate on pharynx Sinuses : non tender bilateral ly Ears: auditory canals norm al bilaterally, TM's WNL Neck : supple, no cervical lymphadenopathy Heart : RRR, normal S1 S2, n o murmurs Lungs: expiratory wheezes, no rales General Appearance: NAD Nose : turbinates red, natalio ested
--- OUTSIDE RECORDS SUMMARY | 2025-05-18 08:30 | XMS_ITS ---
Author Organization [facility] Address [address] [place] [phone] Care Team Providers Care Mica Builder Name Role Phone Milka Yates Primary Care Provider Allergies No Known Allergies Results Component Value Reference Range Notes P-Comprehensive Metabolic Pa greg (CMP) Reviewed date:05/22/2025 03:41:16 PM Interpretation:Normal Performing Lab: Notes/Report: CLIA: [id number] Jose Maria Montero MD, PhD, [facility], Cut Out Operator [address] [place] [address] , [address], [place] [address] Test performed by [employer], [employer] Sodium 140 135-145 mmol/L Potassium 4.3 3.5-5.3 mmol/L Chloride 103 97-108 mmol/L CO2 27 20-32 mmol/L Glucose 82 65-99 mg/dL BUN 12 8-23 mg/dL Creatinine 1.15 0.70-1.30 mg/dL Calcium 9.7 8.6-10.4 mg/dL eGFR by Creatinine 64 >59 mL/min/1.73m2 Protein 6.3 6.0-8.3 g/dL Albumin 4.1 3.5-5.3 g/dL Alkaline Phosphatase 89 44-138 IU/L ALT (SGPT) 16 <5-55 IU/L AST (SGOT) 22 <5-46 IU/L Bilirubin, Total 0.2 <0.2-1.2 mg/dL A/G Ratio 1.9 1.1-2.5 REASON FOR VISIT 3 months, Needs labs Medications Medication SIG (Take, Route, Frequency, Duration) Notes Start Date End Date Status Citalopram Hydrobromide 20 MG 1 tab(s) orally once a day Active Donepezil HCl 10 MG 1 tablet at bedtime Orally Once a day; Duration: 90 days Active Trulance 3 MG 1 tab(s) orally once a day; Duration: 90 days Active Albuterol Sulfate HFA 108 (90 Base) MCG/ACT 1 puff Inhalation every 4 hrs, prn 04/20/2025 Active Ezetimibe 10 MG 1 tablet Orally Once a day; Duration: 90 days Active risperiDONE 0.25 MG 1 tablet Orally Once a day Active Xarelto 15 MG 1 tablet Orally Once a day; Duration: 90 days Active Clopidogrel Bisulfate 75 mg TAKE 1 TABLET DAILY Active Vitamin D3 50 MCG (1999 [place]) [...] Orally Once a day as needed Active LORazepam 0.5 MG 1 tab(s) orally 3 ti mes a day as needed Active Memantine HCl ER 7 MG 1 capsule Orally O nce a day; Duration: 30 days 05/18/2025 Active Vital Signs Weight 180.6 lbs 05/18/2025 Blood pressure systolic 116 mm Hg 05/18/20 25 Blood pressure diastolic 60 mm Hg 025 Heart Rate 69 /min 05/18/2025 Height 68 in 05/18/2025 BMI 27.46 kg/m2 05/18/2025 Encounters Encounter Location Date Provider Diagnosis [facility] [address] [facility] [address] [place] [phone] 05/18/2025 Milka Yates 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 and Tobacco abuse Z72.0 Assessments Encounter Date Diagnosis (ICD Code) Assessment Notes Treatment Notes Treatment Clinical Notes Section Notes 05/18/2025 Senile dementia (ICD-10 - F03.90) 05/18/2025 Essential hypertension (ICD-10 - I10) 05/18/2025 Arteriosclerotic cardiovascular disease (ASCVD) (ICD-10 - I25.10) 05/18/2025 Tobacco abuse (ICD-10 - Z72.0) Plan Of Treatment Medication Medication Name Sig Start Date Stop Date Notes Memantine HCl ER 7 MG 1 capsule Orally O nce a day; Duration: 30 days 05/18/2025 Next Appt Details Follow Up: 2 Months, Reason: Progress Notes * Eliezer GILLIAM CDOB:1945 (79 yo M)Acc No.[id number]:05/18/2025 Progress Notes Patient: Eliezer CARRILLO Provider: Milka Yates M.D. :1945 A ge:79 Y S ex:Male Date:05/18/2025 Address:[place] [address], [id number] Subjective: * Chief Complaints: * 1 . 3 months. 2. Needs labs. * HPI: N eurology: 79 year old male presents with c/o memory loss g etting worse. Pt states he feels like his short term memory has gotten worse. * ROS: C ONSTITUTIONAL: Positive for A jamal physician seen since last visit? Yes, Change in medication since last visit? No, Are you taking antibiotics? No, Are you taking steroids? No. D ERMATOLOGY: no R telma. n o [...] since last visit: none. 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 Past smoking status: yes, PPD:1 , [...] tablet Orally Once a day , Taking risperiDONE 0.25 MG Tablet 1 tablet Orally Once a day , Taking Citalopram Hydrobromide 20 MG Tablet 1 tab(s) orally once a day , Taking Albuterol Sulfate HFA 108 (90 Base) MCG/ACT Aerosol Solution 1 puff Inhalation every 4 hrs, prn , Taking Trulance 3 MG Tablet 1 tab(s) orally once a day , Taking Donepezil HCl 10 MG Tablet 1 tablet at bedtime Orally Once a day , Discontinued Benzonatate 200 MG Capsule 1 capsule Orally 3 times a day, prn , Medication List reviewed and reconciled with the patient * Allergies: N .K.D.A. Objective: * Vitals: W t: 180.6, Temp: 98.1, BP: 116/60, HR: 69, Nurse: SALLY, Ht: 68, BMI:27.46. * Examination: G eneral Examination: General Appearance: [...] enile dementia - F03.90 (Primary) 2 . E ssential hypertension - I10? 3. A rteriosclerotic cardiovascular disease (ASCVD) - I25.10 4 .?Tobacco abuse - Z72.0 Plan: * Treatment: 2. E ssential hypertension L AB: P-Comprehensive Metabolic Panel (CMP) (Collection Date & Time - 05/18/2025 01:22 PM) N ormal Value Reference Range A /G Ratio 1.9 1.1-2.5 - * A lbumin 4.1 3.5-5.3 - g/dL * A lkaline Phosphatase 89 44-138 - IU/L * A LT (SGPT) 16 <5-55 - IU/L * A ST (SGOT) 22 <5-46 - IU/L * B ilirubin, Total 0.2 <0.2-1.2 - mg/dL * B UN 12 8-23 - mg/dL * C alcium 9.7 8.6-10.4 - mg/dL * C hloride 103 97-108 - mmol/L * C O2 27 20-32 - mmol/L * C reatinine 1.15 0.70-1.30 - mg/dL * G lucose 82 65-99 - mg/dL * P otassium 4.3 3.5-5.3 - mmol/L * S odium 140 135-145 - mmol/L * P rotein 6.3 6.0-8.3 - g/dL * e GFR by Creatinine 64 >59 - mL/min/1.73m2 * Sarah Walters Rosa 05/22/2025 0 3:41:00 PM EST > Patient informed of normal results. * Procedure Codes: G 2211 Complex e/[place], [address] VENIPUNCT, ROUTINE*, G8950 PREHTN/HTN BP DOC INDCD F/U DOC, G8752 MOST RECENT SYSTOLIC BP < 140MM HG, G8754 MOST RECENT DIASTOLIC BP < 90MM HG, 3074F SYST BP LT 130 MM HG, 3078F DIAST BP < 80 MM HG * Follow Up: 2 Months * Images: Billing Information: * Visit Code: 29493 Office Visit, Est Pt., Level 4. * Procedure Codes: G2211 Complex e/[place]. [address] VENIPUNCT, ROUTINE*. G8950 PREHTN/HTN BP DOC INDCD F/U DOC. G8752 MOST RECENT SYSTOLIC BP < 140MM HG. G8754 MOST RECENT DIASTOLIC BP < 90MM HG. 3074F SYST BP LT 130 MM HG. 3078F DIAST BP < 80 MM HG. * Electronic signature of Milka Yates MD on 06/01/2025 at 10:00 AM EST Sign off status: Pending * Provider: Milka Yates M.D. Date: 07/19/2024 Generated for Feliberto saunders/Gilma/Lashaeitting on: 08/02/2024 10:00 AM EST History and Physical Notes * HPI (History of Present Illness) Category Sub-Category Detail Notes Category Not es Neurology memory loss getting worse. P t states he feels like his short term memory has gotten worse Examination Category Sub-Category Detail Notes Category Not [...]
[2025-06-01 09:48] VITALS: BP 138/79; PULSE 61; O2SAT 98
[2025-06-01 09:53] VITALS: BP 138/79; PULSE 61; RESP 15; TEMP 36.9; O2SAT 97; BMI 26.6
--- NOTE | 2025-06-01 09:54 | HMH.EDGENADL ---
Discharge Plan Disposition Patient Disposition: Home, Self-Care Prescriptions Prescriptions: No Action donepezil 5 mg tablet 5 mg PO HS Patient Comments: TAKE 1 TABLET BY MOUTH AT BEDTIME clopidogrel 75 mg tablet 75 mg PO DAILY risperidone 0.25 mg tablet 0.25 mg PO DAILY Patient Comments: TAKE 1 TABLET BY MOUTH ONCE A DAY ezetimibe [Zetia] 10 mg tablet 10 mg PO DAILY vitamin B complex [B Complex-Vitamin B12] Tablet 1 tab PO HS lorazepam 0.5 mg tablet 0.5 mg PO BID PRN (Reason: anxiety) Qty: 60 2RF atorvastatin 20 mg tablet 20 mg PO DAILY Qty: 90 3RF rivaroxaban 15 MG tablet 15 mg PO DAILY citalopram [Celexa] 20 mg tablet 20 mg PO DAILY Trulance 3 mg Tablet 3 mg PO DAILY Referrals Follow up/Referrals: Natalie Yates MD [Primary Care Provider, Medical] - See instructions Activity Restrictions/Add. Instructions Additional Instructions/Restrictions: At this time it was felt you are safe to be discharged home. If new or worsening symptoms please do not hesitate to return the emergency department. Please keep the hemostatic gauze attached to your wound until it can gently fall off. Clinical Impressions Clinical Impression: Bleeding from wound Instructions Patient Instructions: DI for Laceration Repair Print Language Print Language: Niuean Discharge ED Provider: [facility] General Adult HPI General Chief complaint: Wound/Laceration Stated complaint: laceration on left arm Time Seen by Provider: 06/01/25 09:45 History of Present Illness HPI narrative: Patient is a 79-year-old male with past medical history of atrial fibrillation on anticoagulation presents emergency department for evaluation of a wound. Onset was acute over the last 48 hours he noticed that his left elbow was oozing blood, he is unsure exactly when it happened and what he cut it on but does not remember any discrete trauma. Tetanus is up-to-date. No other acute complaints at this time. No falls reported. Please note that above description of symptoms, in this electronic medical record under categorization of recalled from ER triage doctor by RN are reflective of an initial nursing assessment, however, is not reflective of my full history and physical exam that was personally taken and clarified. Consequentially, this preceding description of symptoms, which may include the patient's categorized chief complaint in the EMR, do not reflect my personal clinical impression, and the ultimate description of history of present illness and patient stated complaints should be deferred to this section of the note. Unless stated otherwise or congruent with this section of the note, additional signs, symptoms, or incongruence should be interpreted as inaccurate with my clinical impression. Related Data Home Medications ?Medication ?Instructions ?Recorded ?Confirmed ezetimibe 10 mg tablet (Zetia) 10 mg PO DAILY Cholesterol 11/09/18 04/20/25 vitamin B complex (B 1 tab PO HS Supplement 11/19/18 04/20/25 Complex-Vitamin B12 tablet) rivaroxaban 15 mg tablet 15 mg PO DAILY anticoag 09/16/19 04/20/25 citalopram 20 mg tablet (Celexa) 20 mg PO DAILY Depression 05/05/22 04/20/25 donepezil 5 mg tablet 5 mg PO HS 10/20/24 04/20/25 plecanatide 3 mg tablet (Trulance) 3 mg PO DAILY 10/21/24 04/20/25 clopidogrel 75 mg tablet 75 mg PO DAILY 01/17/25 04/20/25 risperidone 0.25 mg tablet 0.25 mg PO DAILY 03/13/25 04/20/25 Previous Rx's ?Medication ?Instructions ?Recorded atorvastatin 20 mg tablet 20 mg PO DAILY #90 tabs 03/15/25 lorazepam 0.5 mg tablet 0.5 mg PO BID PRN anxiety #60 tabs 04/20/25 Allergies Allergy/AdvReac Type Severity Reaction Status Date / Time No Known Allergies Allergy Verified 04/20/25 10:01 [facility] Disclaimer: The information contained in this section may have been updated after the patient was seen, as this information can be updated by other users. Medical History Pre-op exam Depression Anxiety Hard of hearing History of cataract Major depressive disorder Generalized anxiety disorder Stenosis of carotid artery Carotid bruit present [facility] current use of anticoagulant Carotid artery stenosis Chronic a-fib CAD (coronary artery disease) HTN (hypertension) Tobacco use Hyperlipidemia Surgical History History of colonoscopy History of hernia surgery H/O arthroscopy of shoulder Stented coronary artery Family History Other Cancer Coronary artery disease Stroke Social History Smoking Status: Current every day smoker tobacco type: cigarettes packs per day: 1 years smoked: 60 alcohol intake: never substance use type: denies use current occupational status: retired Travel in the last 8 weeks?: None number of children: 0 caffeine: Yes Have you lived/traveled outside [place] in past 30 days?: No Contact w/someone who lives/traveled outside US past 30 days?: No Exposure to someone with infectious disease in past 14 days?: No Do you have a fever (greater than 100.4 F or 38 C)?: No Have you tested positive for COVID-19?: No Exposed to someone with COVID-19 in past 14 days?: No Do you have a sore throat?: No Do you have a cough?: No Do you have any weakness?: No Do you have any diarrhea?: No Are you experiencing any unusual bleeding?: No Do you have any muscle aches/pain?: No Do you have any abdominal pain?: No Are you experiencing loss of taste or smell?: No Other Medical History Have you received the Flu Vaccine for this season: No Have you received the Pneumonia Vaccine: Yes ROS Obtained: Yes Systems reviewed as appropriate & no additional complaints except as documented Physical Exam General General appearance: alert and in no apparent distress Head Head exam: atraumatic and normocephalic Eye Eye exam: Present PERRL and EOMI ENT ENT exam: Present mucous membranes moist Neck Neck exam: Present normal inspection Chest Chest inspection: Present normal inspection and symmetric chest wall rise Respiratory Respiratory exam: Absent respiratory distress Cardiovascular Cardiovascular exam: Present regular rate Extremities Exam Extremities exam: Present other (Oozing subcentimeter wound over his left posterior elbow. Range of motion preserved at the elbow.) Neurological Exam Neurological exam: Present alert Psychiatric Psychiatric exam: Present normal affect Skin Skin exam: Present warm and dry Medical Decision Making Medical Records Screening: Per USPSTF and CDC recommendations, given the prevalence of disease in our region, it is our hospital?s policy to screen for HIV and viral Hepatitis for all patients aged 18 and over and those with ongoing risk factors. Zi Inquiry Pt receiving controlled substance: No Vital Signs: 06/01/25 09:48 06/01/25 09:53 Temperature 98.4 F Temperature Source Oral Pulse Rate 61 Pulse Rate [Right Radial] 61 Respiratory Rate 15 Blood Pressure 138/79 Blood Pressure [Right Arm] 138/79 Blood Pressure Mean [Right Arm] 98 Blood Pressure Source [Right Arm] Automatic Cuff Blood Pressure Position [Right Arm] Supine 02 Sat by Pulse Oximetry 98 97 Oxygen Delivery Method Room Air Orders (Tests/Meds): ED MEDICATIONS Discontinued Medications Generic Name Dose Route Start Last Admin Trade Name Freq PRN Reason Stop Dose Admin Tetanus/Reduced Diphtheria/Acell Pertussis 0.5 ml 06/01/25 10:10 Tet/Diphth/Pert-Adult 0.5ml Syringe IM 06/01/25 10:11 .ONCE ONE Medical Decision Narrative: In summary patient is a 79-year-old male with past medical history described above presents emergency department for evaluation of a oozing wound on anticoagulation. Wound is approximately 48 hours old, fortunately is subcentimeter and does not require sutures as they would be contraindicated at this point. Tetanus is up-to-date per patient report. Hemostasis achieved with Surgicel and patient is appropriate for outpatient management at this time. Upon further review of patient's chart his tetanus is 6 years old and he has not received any in the interim we will go ahead and administer. Procedure: Procedure performed was hemostatic wound management. Procedure performed by nursing under my supervision. Wound was gently cleaned and Surgicel was applied with pressure directly over the wound. Subsequently wrapped with Coban. Coban subsequently taken down, hemostasis achieved, patient tolerated the procedure well. There were no immediate complications. Critical Care Critical Care Time Critical Care Time: No
--- OUTSIDE RECORDS SUMMARY | 2025-06-01 10:00 | XMS_ITS | Referral Summary ---
Author Organization [employer] ([place], [place], [place], [place], [place]) Address [address] [place] [address] Care Team Providers Care Regional Sales Manager Name Role Phone Rik Yates MD Primary Care Provider [phone] Social History Tobacco Use Types Packs/Day Years Used Date Smoking Tobacco: Never Assessed Sex and Gender Information Value Date Recorded Sex Assigned at Not on file Legal Sex Male 6:23 PM CDT Gender Identity Not on file Sexual Orientation Not on file Plan of Treatment Not on file Insurance [facility] MEDICARE ADVANTAGE Care Teams Regional Sales Manager Relationship Specialty Start Date End Date Rik Yates MD [address] [facility] [address] [place] [address] PCP - General Neurology 01/23/25
--- OUTSIDE RECORDS SUMMARY | 2025-06-01 10:00 | XMS_ITS | Clinical Summary ---
Author Organization Healthcare Address [address] [place] [address] Care Team Providers Care Test Analyst Name Role Phone Unavailable Primary Care Provider Unavailabl e Social History Tobacco Use Types Packs/Day Years Used Date Smoking Tobacco: Never Assessed Sex and Gender Information Value Date Recorded Sex Assigned at Not on file Legal Sex Male 6:55 PM EDT Gender Identity Not on file Sexual Orientation Not on file Plan of Treatment Not on file Insurance [id number] [place] [address]
--- OUTSIDE RECORDS SUMMARY | 2025-06-01 10:02 | XMS_ITS | Patient Health Record ---
Author Organization [facility] Address [address] [place] [id number] Care Team Providers Care Field Hand Name Role Phone Milka Yates Primary Care Provider [phone] Yusuf Acevedo Unavailable [phone] Pam Brown Unavailable [phone] Rena Ferris Unavailable [phone] Allergies No Known Allergies Results Component Value Reference Range Notes P-Basic Metabolic Panel (BMP ) Reviewed date:01/06/2025 09:10:23 AM Interpretation:gluc 105, Cr 1.33, gfr 54 Performing Lab: Notes/Report: Test performed by [facility] [address] [place] [address] , [address], [place] [address] Chin Padilla MD, [place] CLIA: [id number] Sodium 137 135-145 mmol/L Potassium 4.3 3.5-5.3 mmol/L Chloride 102 97-108 mmol/L CO2 25 20-32 mmol/L Glucose 105 65-99 mg/dL BUN 12 8-23 mg/dL Creatinine 1.33 0.70-1.30 mg/dL Calcium 9.6 8.6-10.4 mg/dL eGFR by Creatinine 54 >59 mL/min/1.73m2 Holter Monitor- 48 hour Reviewed date:02/14/2025 11:33:33 AM Interpretation:see 02/09/2025 f/u OV Performing Lab: Notes/Report: see 02/09/2025 f/u OV CBC Fingerstick (in house) Reviewed date:01/19/2025 05:34:08 [...] - 38 plat 222 100 - 400 CBC Fingerstick (in house) Reviewed date:04/20/2025 11:39:42 [...] - 38 plat 130 100 - 400 P-Comprehensive Metabolic Pa greg (CMP) Reviewed date:05/22/2025 03:41:16 PM Interpretation:Normal Performing Lab: Notes/Report: Test performed by [facility] [address] [place] [address] , [address], [place] [address] Jose Maria Montero MD, PhD, [facility], [place] CLIA: [id number] Sodium 140 135-145 mmol/L Potassium 4.3 3.5-5.3 [...] 0.2 <0.2-1.2 mg/dL A/G Ratio 1.9 1.1-2.5 Glycohemoglobin A1c (in hous e) Reviewed date:12/23/2024 09:38:15 AM Interpretation: Performing Lab: Notes/Report: glycohemoglobin 5.6% 5 - 6.5 % EKG Reviewed date:01/06/2025 09:10:23 AM Interpretation:Abnormal Performing Lab: Notes/Report: Abnormal CBC Venipuncture (in house) Reviewed date:09/30/2024 08:38:04 [...] Interpretation:satisfacotry Performing Lab: Notes/Report: Test performed by [facility] [address] [place] [address] , [address], [place] [address] Chin Padilla MD, [place] CLIA: [id number] Vitamin B12 9228 028-5900 pg/mL P-Comprehensive Metabolic Pa greg (CMP) Reviewed date:10/07/2024 12:12:22 PM Interpretation:Normal Performing Lab: Notes/Report: Test performed by [facility] [address] [place] [address] , [address], [place] [address] Chin Padilla MD, [place] CLIA: [id number] Sodium 142 135-145 mmol/L Potassium 4.2 3.5-5.3 [...] Interpretation:Normal Performing Lab: Notes/Report: Test performed by [facility] [address] [place] [address] , [address], [place] [address] Chin Padilla MD, [place] CLIA: [id number] TSH 1.05 0.43-5.25 mU/L CBC Fingerstick (in house) Reviewed date:12/08/2024 04:54:43 [...] 110 Performing Lab: Notes/Report: Test performed by [facility] [address] [place] [address] , [address], [place] [address] Chin Padilla MD, [place] CLIA: [id number] Sodium 144 135-145 mmol/L Potassium 3.8 3.5-5.3 mmol/L Chloride 110 97-108 mmol/L CO2 24 20-32 mmol/L Glucose 110 65-99 mg/dL BUN 11 8-23 mg/dL Creatinine 1.08 0.70-1.30 mg/dL Calcium 8.8 8.6-10.4 mg/dL eGFR by Creatinine 69 >59 mL/min/1.73m2 P-Vitamin D 1,25-Dihydroxy a nd 25-Hydroxy Reviewed date:12/30/2024 12:35:56 PM Interpretation:45.7 Performing Lab: Notes/Report: Test performed by [facility] [address] , [address], [place] [address] Chin Padilla MD, [place] CLIA: [id number] Vitamin D 25-Hydroxy 45.7 30.0-100.0 ng/mL Interpretation of Vitamin D 25 OH: < 20 ng/mL - Deficiency 20 - 29 ng/mL - Insufficiency 30 - 100 ng/mL - Sufficiency > 100 ng/mL - Super-therapeutic- toxicity may occur above this level. Clinical correlation required. Vitamin D, 1, 25 Dihydroxy 56.8 19.9-79.3 pg/m L CT Scan : Chest, low dose Reviewed date:02/14/2025 12:51:35 PM Interpretation:patient doesn't meet requirements/not performed Performing Lab: Notes/Report: patient doesn't meet requirements/not performed Medications Medication SIG (Take, Route, Frequency, Duration) Notes Start Date End Date Status Ezetimibe 10 MG 1 tablet Orally Once a day; Duration: 90 days Active Citalopram Hydrobromide 20 MG 1 tab(s) orally once a day Active Xarelto 15 MG 1 tablet Orally Once a day; Duration: 90 days Active Clopidogrel Bisulfate 75 mg TAKE 1 TABLET DAILY Active Memantine HCl ER 7 MG 1 capsule Orally O nce a day; Duration: 30 days 05/18/2025 Active risperiDONE 0.25 MG 1 tablet Orally Once a day; Duration: 30 days Active Atorvastatin Calcium 20 MG 1 tab(s) oral ly once a day; Duration: 30 days Active Donepezil HCl 10 MG 1 tablet at bedtime Orally Once a day; Duration: 90 days Active B-12 1000 MCG 1 tab(s) orally once a day; Duration: 30 day(s) 06/10/2013 Active Trulance 3 MG 1 tab(s) orally once a day; Duration: 90 days Active Aspirin 81 81 MG 1 tablet Orally Once a day Active Advil PM 200-25 MG 1capsules at bedtime as needed Orally Once a day as needed Active Albuterol Sulfate HFA 108 (90 Base) MCG/ACT 1 puff Inhalation every 4 hrs, prn 04/20/2025 Active Vitamin D3 50 MCG (2000 UT) 1 tab(s) ora lly once a day; Duration: 30 day(s) 06/10/2013 Active LORazepam 0.5 MG 1 tab(s) orally 3 ti mes a day as needed Active Immunizations Vaccine Route Administration Date Status Comme nts xFluzone (6mos and older)-trivalent IM Intramuscular 05/27/2011 Administered xFlu shot-36 months and older IM Intramuscular 06/09/2007 Administered xFlu shot-36 months and older IM Intramuscular 03/22/2008 Administered xFlu shot-36 months and older IM Intramuscular 02/28/2009 Administered xFlu shot-36 months and older IM Intramuscular 04/02/2010 Administered xFlu shot-36 months and older IM Intramuscular 01/22/2012 Administered tuberculin (ppd) ID Intradermal 06/14/2007 Administered Tetanus Tdap-Adacel (over 7yrs) IM Intramuscular 07/14/2018 Administered Shingrix IM Intramuscular 12/30/2018 Administered Prevnar (PCV13) IM Intramuscular 11/28/2014 Administered PNEUMOVAX 23 VACCINE IM Intramuscular 02/28/2009 Administe red PNEUMOVAX 23 VACCINE IM Intramuscular 02/14/2020 Administe red H1N1 flu vaccine IM Intramuscular 05/16/2009 Administered Fluzone High Dose (65yr and older) [...] (65yr and older) IM Intramuscular 03/14/2024 Administered Fluzone High Dose (65yr and older) IM Intramuscular 02/16/2025 Administered COVID 19 Moderna Unknown 07/18/2020 Administered COVID 19 Moderna Unknown 08/15/2020 Administered COVID 19 Moderna Unknown 04/29/2021 Administered COVID 19 Moderna Unknown 09/17/2021 Administered Problems Problem Type SNOMED Code ICD Code Onset Dates Problem Status W/U Status Risk Notes Problem Tobacco abuse (8641015561) Tobacco abuse (Z72.0) Active confirmed Problem Essential hypertension (53273776) Essential hypertension (I10) Active confirmed Problem Multiple pulmonary nodules (475415253) Pulmonary nodules (R91.8) Active confirmed Problem Cardiac arrhythmia (963737967) Dysrhythmia (I49.9) Active confirmed Problem Sinus bradycardia (20299785) Sinus bradycardia (R00.1) Active confirmed Problem Memory loss (66950002) Memory loss (R41.3) Active confirmed Problem Pure hypercholesterolemia (777118965) Pure hypercholesterolemia (E78.0) Active confirmed Problem Persistent atrial fibrillation (643723866) Persistent atrial fibrillation (I48.1) Active confirmed Problem Constipation by delayed colonic transit (57792421) Constipation by delayed colonic transit (K59.01) Active confirmed Problem History of polyp of colon (situation) (163881412) History of colon polyps (Z86.010) Active confirmed Problem Atherosclerotic hear t disease of [place] coronary artery without angina pectoris (771690635106731) 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) Active confirmed Problem History of atrial fibrillation (756366384) History of atrial fibrillation (Z86.79) Active confirmed Problem COPD - Chronic obstructive pulmonary disease (00455738) Chronic obstructive pulmonary disease, unspecified COPD type (J44.9) Active confirmed Problem Multiple actinic keratoses (disorder) (980110264) Actinic keratoses (L57.0) Active confirmed Problem Abnormal gait (20070817) Imbalance (R26.89) Active confirmed Problem Carpal tunnel syndrome of left wrist (651360491306606) Carpal tunnel syndrome of left wrist (G56.02) Active confirmed Problem Adjustment disorder with mixed emotional features (68479855) Situational mixed anxiety and depressive disorder (F43.23) Active confirmed Problem Occlusion and stenosis of multiple and bilateral cerebral arteries (853476264) Bilateral carotid artery stenosis (I65.23) Active confirmed Problem Pure hypercholesterolemia (945463094) Pure hypercholesterolemia, unspecified (E78.00) Active confirmed Problem Benign prostatic hypertrophy without outflow obstruction (490937647) Benign prostatic hyperplasia without lower urinary tract symptoms (N40.0) Active confirmed Problem History of placement of stent for coronary artery disease (situation) (430907987) History of coronary artery stent placement (Z95.5) Active confirmed Problem Squamous cell carcinoma of external ear, 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 Problem Localized, primary osteoarthritis of the hand (788279387) Arthropathy of hand (M19.049) Active confirmed Problem Atherosclerotic hear t disease of [place] coronary artery without angina pectoris (944152616599134) Coronary artery disease involving [place] heart, angina presence unspecified, unspecified vessel or lesion type (I25.10) Active confirmed Problem Hidradenitis (13322624) Left axillary hidradenitis (L73.2) Active confirmed Problem Lumbar sprain (622942713) Sprain of low back, initial encounter (S33.5XXA) Active confirmed Problem Extrapyramidal movements (115564203) 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) Active confirmed Problem Senile dementia (47306452) Senile dementia (F03.90) Active confirmed Vital Signs Heart Rate 69 /min 05/18/2025 Blood pressure diastolic 60 mm Hg 05/18/2025 Height 68 in 05/18/2025 Blood pressure systolic 116 mm Hg 05/18/2025 Weight 180.6 lbs 05/18/2025 BMI 27.46 kg/m2 05/18/2025 Encounters Encounter Location Date Provider Diagnosis [address] [id number] 06/10/2024 Milka Yates Essential hypertensi on I10 ; Arteriosclerotic cardiovascular disease (ASCVD) I25.10 ; Imbalance R26.89 and History of coronary artery stent placement Z95.[address] [id number] 12/08/2024 Milka Yates Essential hypertensi on I10 ; Memory loss R41.3 ; Tobacco abuse Z72.0 ; History of coronary artery stent placement Z95.5 ; Imbalance R26.89 and BMI 26.0-26.9,adult Z68.[address] [id number] 12/22/2024 Milka Yates Symptomatic hypotens ion I95.9 ; Mild dehydration E86.0 and BMI 26.0-26.9,adult Z68.[address] [id number] 12/29/2024 Milka Yates Symptomatic hypotens ion I95.9 and BMI 25.0-25.9,adult Z68.25 [facility] [address] [place], [place] [id number] 01/02/2025 Milka Yates Weight loss, unintentional R63.4 ; Memory loss R41.3 ; Essential hypertension I10 and Tobacco abuse Z72.0 [facility] [address] [place], [place] [id number] 01/09/2025 Milka Yates 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 [facility] [address] [place], [place] [id number] 01/19/2025 Yusuf [place] Acute cough R05.1 ; Acute hypotension I95.9 and BMI 24.0-24.9, adult Z68.24 [facility] [address] [place], [place] [id number] 02/09/2025 Milka Yates 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 ; Memory loss R41.3 ; Tobacco abuse Z72.0 and Essential hypertension I10 [facility] [address] [place], [place] [id number] 02/16/2025 Rena Crowdy 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 ; Memory loss R41.3 and Encounter for immunization Z23 [facility] [address] [place], [place] [id number] 03/13/2025 Milka Yates 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 and Memory loss R41.3 [facility] [address] [place], [place] [id number] 04/10/2025 Pam Brown 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 ; Memory loss R41.3 and Tobacco abuse Z72.0 [facility] [address] [place], [place] [id number] 04/20/2025 Rena Crowdy Acute URI 465.9 [facility] [address] [place], [place] [id number] 05/18/2025 Milka Yates 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 and Tobacco abuse Z72.0 [facility] [address] [facility] [address] [place], [place] [id number] 09/29/2024 Milka Yates Memory loss R41.3 ; Chronic obstructive pulmonary disease, unspecified COPD type J44.9 ; History of coronary artery stent placement Z95.5 ; Tobacco abuse Z72.0 ; Arteriosclerotic cardiovascular disease (ASCVD) I25.10 and BMI 27.0-27.9,adult Z68.27 [facility] [address] [facility] [address] [place], [place] [id number] 08/15/2024 Milka Yates Imbalance R26.89 [facility] [address] [facility] [address] [place], [place] [id number] 08/30/2024 Milka Yates Constipation by bang yed colonic transit K59.01 [facility] [address] [facility] [address] [place], [place] [id number] 08/31/2024 Milka Yates Constipation by bang yed colonic transit K59.01 [facility] [address] [facility] [address] [place], [place] [id number] 12/13/2024 Milka Yates [facility] [address] [facility] [address] [place] [id number] 12/30/2024 Milka Yates [facility] [address] [place], [place] [id number] 01/06/2025 Milka Yates Assessments Encounter Date Diagnosis (ICD Code) Assessment Notes Treatment Notes Treatment Clinical Notes Section Notes 06/10/2024 Essential hypertension (ICD-10 - I10) continue current therapy 06/10/2024 Arteriosclerotic cardiovascular disease (ASCVD) (ICD-10 - I25.10) 08/15/2024 Imbalance (ICD-10 - R26.89) 08/30/2024 Constipation by delayed colonic transit (ICD-10 - K59.01) 08/31/2024 Constipation by delayed colonic transit (ICD-10 - K59.01) 12/08/2024 Essential hypertension (ICD-10 - I10) 12/08/2024 Memory loss (ICD-10 - R41.3) 01/19/2025 Acute hypotension (ICD-10 - I95.9) Blood pressure journal, hold Verapamil for a few days 01/19/2025 Acute cough (ICD-10 - R05.1) 05/18/2025 Senile dementia (ICD-10 - F03.90) 04/20/2025 Acute URI (ICD-10 - 465.9) 04/10/2025 Senile dementia (ICD-10 - F03.90) he has been followed by neuro with appt with [facility]; according to notes he may be relocating to [facility] to live with his son 03/13/2025 Senile dementia (ICD-10 - F03.90) 12/29/2024 BMI 25.0-25.9,adult (ICD-10 - Z68.25) 12/29/2024 Symptomatic hypotension (ICD-10 - I95.9) 09/29/2024 Memory loss (ICD-10 - R41.3) 09/29/2024 Chronic obstructive pulmonary disease, unspecified COPD type (ICD-10 - J44.9) 02/16/2025 Memory loss (ICD-10 - R41.3) 02/16/2025 Senile dementia (ICD-10 - F03.90) Patient feels medication is helping. Will continue and f/u with Dr. Yates. 02/09/2025 Senile dementia (ICD-10 - F03.90) 01/09/2025 Senile dementia (ICD-10 - F03.90) 01/02/2025 Weight loss, unintentional (ICD-10 - R63.4) Ensure 1 can bid 01/02/2025 Memory loss (ICD-10 - R41.3) 12/22/2024 Mild dehydration (ICD-10 - E86.0) 12/22/2024 Symptomatic hypotension (ICD-10 - I95.9) 02/09/2025 Memory loss (ICD-10 - R41.3) 01/02/2025 Essential hypertension (ICD-10 - I10) 12/22/2024 BMI 26.0-26.9,adult (ICD-10 - Z68.26) 02/16/2025 Encounter for immunization (ICD-10 - Z23) 04/10/2025 Memory loss (ICD-10 - R41.3) 09/29/2024 History of coronary artery stent placement (ICD-10 - Z95.5) 03/13/2025 Memory loss (ICD-10 - R41.3) 05/18/2025 Essential hypertension (ICD-10 - I10) 01/19/2025 BMI 24.0-24.9, adult (ICD-10 - Z68.24) 12/08/2024 Tobacco abuse (ICD-10 - Z72.0) 06/10/2024 Imbalance (ICD-10 - R26.89) 06/10/2024 History of coronary artery stent placement (ICD-10 - Z95.5) 12/08/2024 History of coronary artery stent placement (ICD-10 - Z95.5) 05/18/2025 Arteriosclerotic cardiovascular disease (ASCVD) (ICD-10 - I25.10) 04/10/2025 Tobacco abuse (ICD-10 - Z72.0) tobacco cessation encouraged; he smoke 1 PPD 09/29/2024 Tobacco abuse (ICD-10 - Z72.0) 01/02/2025 Tobacco abuse (ICD-10 - Z72.0) 02/09/2025 Tobacco abuse (ICD-10 - Z72.0) 02/09/2025 Essential hypertension (ICD-10 - I10) 09/29/2024 Arteriosclerotic cardiovascular disease (ASCVD) (ICD-10 - I25.10) 05/18/2025 Tobacco abuse (ICD-10 - Z72.0) 12/08/2024 Imbalance (ICD-10 - R26.89) 12/08/2024 BMI 26.0-26.9,adult (ICD-10 - Z68.26) 09/29/2024 BMI 27.0-27.9,adult (ICD-10 - Z68.27) Plan Of Treatment No Information Insurance Providers Payer Name Payer Address Payer Phone Subscriber Number Group Number Insured Name Patient Relationship to Insured Coverage Start Date Coverage End Date [facility] [address] [address] [place] [address] [id number] Eliezer Gilliam Self - patient is the insured Medical [...] Allran, tubular adenomas Hospitalization History Reason Date(Month/Year) [facility] 11/22/2018
--- OUTSIDE RECORDS SUMMARY | 2025-06-01 10:02 | XMS_ITS | Clinical Summary ---
Author Organization [employer] ([place], [place], [place], [place]) Address [address] [place] [address] Care Team Providers Care Legal Researcher Name Role Phone Rik Yates MD Primary Care Provider [phone] Social History Tobacco Use Types Packs/Day Years [...] PCV) 02/13/2021 02/14/2020 Falls Risk Screening 06/08/2024 Medicare IPPE (Welcome to Medicare) [id number] 11/06/2024 COVID-19 VACCINE (2023-2 5 season) 2025 04/08/2024, 04/16/2022, 09/17/2021, Additional history exists Influenza Vaccine (#1) 2025 , 05/08/2021, 02/14/2020, Additional history exists DTAP/TDAP/TD VACCINES (2 - T d or Tdap) 07/14/2028 07/14/2018 Insurance MEDICARE ADVANTAGE Care Teams Legal Researcher Relationship Specialty Start Date End Date Rik Yates MD [address] [facility] [address] [place] [address] PCP - General Neurology 01/23/25
[2025-06-01] MEDS: TET/DIPHTH/PERT-ADULT 0.5ML SYRINGE 0.5 ML IM (10:20)
[2025-06-01 10:24] VITALS: BP 130/81; PULSE 68; RESP 16; TEMP 36.7; O2SAT 99
== END 2025-06-01 10:24 | disposition home or self-care (01) ==
PROVIDERS: Emergency Provider Emergency Medicine; PCP Family Medicine
DX: S51.002A Unspecified open wound of left elbow, initial encounter (principal); X58.XXXA Exposure to other specified factors, initial encounter
CPT/HCPCS: 90471; 90715; 99283